=== PATIENT | male | born 1935 | race Caucasian/White ===

== ENCOUNTER 2019-10-24 06:04 | Inpatient (IN) ==
[2019-10-24] MEDS ORDERED: ONDANSETRON 4 MG OD TAB PO PRN (06:55)
[2019-10-24] MEDS ORDERED: SODIUM CHLORIDE 0.9% 500 ML IV SCH (07:00)
[2019-10-24 07:04] LABS: Basophils # (auto) 0.04 K/uL (0-0.2); Basophils % (auto) 0.2 %; Eosinophils # (auto) 1.42 K/uL (0-0.5); Eosinophils % (auto) 6.3 %; Hematocrit (blood only) 51.9 % (42-52); Hemoglobin 17.2 g/dL (14.0-18.0); Immature Granulocytes # (auto) 0.07 K/uL (0.00-0.02); Immature Granulocytes % (auto) 0.3 %; Lymphocytes # (auto) 0.82 K/uL (1.2-3.4); Lymphocytes % (auto) 3.7 %; Mean Corpuscular Hemoglobin 33.3 pg (25-34); Mean Corpuscular Hgb Conc 33.1 g/dL (32-36); Mean Corpuscular Volume 100.4 fL (80-100); Monocytes # (auto) 1.62 K/uL (0.11-0.59); Monocytes % (auto) 7.2 %; Neutrophils # (auto) 18.41 K/uL (1.4-6.5); Neutrophils % (auto) 82.3 %; Platelet Count 150 K/uL (130-400); RDW Coefficient of Variation 15.4 % (11.5-14.5); RDW Standard Deviation 56.4 fL (36.4-46.3); Red Blood Count 5.17 M/uL (4.7-6.1); White Blood Count 22.38 K/uL (4.8-10.8)
[2019-10-24 07:20] LABS: Albumin Globulin Ratio 1.2 (0.9-2); Albumin Level 4.7 gm/dl (3.4-5.0); BUN Creatinine Ratio 22.2 (10-20); Bilirubin,Total 1.1 mg/dl (0.2-1); Creatinine Clr Calc Pharmacy 33.1 ml/min; Est GFR (African American) 53.6; Est GFR (Non-African American) 46.2; Globulin 3.9 gm/dl (2.5-4.0); Total Protein 8.6 gm/dl (6.4-8.2)
[2019-10-24 08:10] LABS: Influenza A virus by PCR Neg for Influ A (Neg); Influenza B virus by PCR Neg for Influ B (Neg)
[2019-10-24] MEDS ORDERED: ONDANSETRON INJ 2 MG/ML 2 ML VIAL IV STA (08:27)
[2019-10-24] MEDS: SODIUM CHLORIDE 0.9% 500 ML IV SCH ×2 (08:29→13:44)
[2019-10-24 09:31] LABS: Hematocrit (blood only) 47.4 % (42-52); Hemoglobin 15.6 g/dL (14.0-18.0); Mean Corpuscular Hemoglobin 33.1 pg (25-34); Mean Corpuscular Hgb Conc 32.9 g/dL (32-36); Mean Corpuscular Volume 100.4 fL (80-100); Mean Platelet Volume 12.5 fL (7.4-10.4); Platelet Count 136 K/uL (130-400); RDW Coefficient of Variation 15.4 % (11.5-14.5); RDW Standard Deviation 56.3 fL (36.4-46.3); Red Blood Count 4.72 M/uL (4.7-6.1)
--- NOTE | 2019-10-24 09:54 | XRay Report ---
PA CHEST RADIOGRAPH AND UPRIGHT AND SUPINE AP RADIOGRAPHS OF THE ABDOMEN CLINICAL HISTORY: n/v/d COMPARISON STUDY: Chest radiograph November 02, 2015. FINDINGS: There are median sternotomy wires. Mild cardiomegaly is noted without evidence for pulmona ry edema. Minimal left basilar opacity favors atelectasis. There is no pneumothorax or definite pleur al effusion. No free air is present. A few mildly dilated loops of small bowel within the left abdome n are noted. There is moderate vascular calcification. IMPRESSION: 1. No free air. 2. Mild small bowel dilatation. This could reflect a partial small bowel obstruction or ileus. 3. Left basilar opacity which favors atelectasis. ACT 112: Negative or not required by law. Electronically signed by: Klaus Weathers M.D. 10/24/2019 9:52 AM
[2019-10-24] MEDS ORDERED: SODIUM CHLORIDE 0.9% 500 ML IV ONE (10:13)
[2019-10-24] MEDS ORDERED: IOVERSOL 100ml IV PRN (10:33)
[2019-10-24 10:47] LABS: Appearance Urine Clear (Clear); Bilirubin Urine Negative (Negative); Blood Urine Negative (Negative); Color Urine Yellow; Glucose Urine UA Negative (Negative); Ketones Urine Negative (Negative); Leukocyte Esterase Urine Negative (Negative); Nitrite Urine Negative (Negative); Protein Urine Negative (Negative); Specific Gravity Urine 1.015 (1.000-1.030); Urobilinogen Urine Negative (Negative); pH Urine 5.5 (4.5-7.5)
--- NOTE | 2019-10-24 10:53 | CT Scan Report ---
CT OF THE ABDOMEN AND PELVIS WITH CONTRAST CLINICAL HISTORY: vomiting, nausea, concern for SBO vs Ileus COMPARISON STUDY: Abdominal series performed earlier today. TECHNIQUE: Following IV administration of 94 mL of Optiray-320, axial images of the abdomen and pelvi s were obtained from the lung bases to the proximal femurs. Images were reviewed in the axial, sagitt al, and coronal planes. IV contrast was administered without complication. Automated exposure contro l was utilized for the study. A dose lowering technique was utilized adhering to the principles of A PEARL. CT DOSE: 745.41 mGycm FINDINGS: The heart is moderately enlarged. No pneumatosis, free air or portal venous gas is present. The liver, adrenal glands and pancreas are unremarkable. There are calcified cannula was within the spleen. There are gallstones within the gallbladder without evidence for acute cholecystitis. A few c alculi within lower pole the left kidney measure up to 3 mm. There are no ureteral calculi. There is no hydronephrosis. Extensive colonic diverticulosis is noted without evidence for acute diverticuliti s. The appendix is normal. The proximal to mid small bowel is fluid-filled and mildly dilated. There is a possible transition point within the right lower quadrant on image 255 of 461. Distal small sumit l is decompressed. Prostate is moderately enlarged. Bladder wall thickening is chronic. There are no suspicious osseous lesions. IMPRESSION: 1. Mildly dilated fluid-filled proximal to mid small bowel with probable transition point within the right lower quadrant. The appearance favors a partial small bowel obstruction. An ileus could appear similar but is considered less likely. 2. Extensive colonic diverticulosis without evidence for acute diverticulitis. 3. Left-sided nephrolithiasis. 4. Cholelithiasis. ACT 112: Negative or not required by law. Electronically signed by: Klaus Weathers M.D. 10/24/2019 10:51 AM
[2019-10-24 11:56] LABS: Cdiff Antigen Negative; Cdiff Toxin A+B Negative Cdiff Toxin (Negative)
--- NOTE | 2019-10-24 12:11 | History & Physical Report ---
Date of Service October 24, 2019 Assessment & Plan (1) Partial small bowel obstruction: (2) Diarrhea: This is an 84-year-old male who has significant PMH of CAD with history of CABG x3, T2DM, HTN, HLD, CKD stage III, frequent PVCs, vitamin D deficiency who presents to ED secondary to emesis x1, multiple episodes of loose stool since 3 AM. Imaging reveals partial SBO with probable transition point within the right lower quadrant. Patient with leukocytosis 18,000, lactic acid 1.9, stool for C. difficile negative. Admit to medical floor bowel rest IVF LR 80cc/hr antiemetics and supportive care pt w/o active emesis or nausea; therefore I do not feel NG warranted general surg consulted repeat kub in a.m. follow labs (3) CAD (coronary artery disease): hx of CABG x 3 2004 denies chest pain and sob on ASA, statin, lisinopril and metoprolol as outpt follows [facility] cardiology (4) Diabetes: A1c 7.3 on 07/20/2018 Hold metformin NovoLog per protocol (5) Hypertension: blood pressure controlled continue metoprolol and lisinopril hold triamterene/hctz (6) CKD (chronic kidney disease) stage 3, GFR 30-59 ml/min: baseline cr 1.2 bun/cr 31 and 1.39 today likely in setting of volume contraction due to n/v mild acute renal insufficiency IV LR 80cc/hr repeat in a.m. (7) DVT prophylaxis: SQ Heparin Disposition: admit to med/surg Follow up: PCP Dr. Johnston upon discharge Pt was seen and examined in collaboration with Dr. De León, please see addendum History of Present Illness Chief Complaint: Emesis and diarrhea since 3a.m. Primary Care Provider: Donnie Johnston MD This is an 84-year-old male who has significant PMH of CAD with history of CABG x3, T2DM, HTN, HLD, CKD stage III, frequent PVCs, vitamin D deficiency who presents to ED secondary to emesis x1, multiple episodes of loose stool since 3 AM. He woke up at approximately 3 AM and had episode of emesis. He also had 3- 4 episodes of very loose bowel and diffuse abdominal cramping. After he was seated on the toilet and had a bowel movement he went to get up. After getting up he felt very diaphoretic, lightheaded and dizzy and, "blacked out." He recalls events prior to and after passing out. He denies hitting his head and states he fell on the carpet on his hands. He denies any injury from the fall. He does admit to presyncopal symptoms. He further relates this to having approximately 2 to 3 days of abdominal distention, bloating and frequent flatus. He denies any recent illness but states he was in the ED yesterday with his son who developed an acute onset of nausea, emesis and diarrhea. He was told he had a GI gastroenteritis was treated conservatively and discharged home. He thought possibly he had similar symptoms. He currently lives at home with his son and his . His is currently hospitalized at [facility] and is being discharged today. He denies any fever, chills, sweats, current lightheadedness or dizziness, headache, change in vision, chest pain, shortness breath, palpitations, cough, hemoptysis, melena, hematochezia, dysuria or change in urinary habits. He continues to have nausea but denies any further emesis, abdominal pain. He did move his bowels while in ED and were more formed than this morning. In ED he remained hemodynamically stable and afebrile. Lab work revealed leukocytosis 18 K with predominant neutrophilia, BUN 31, creatinine 1.39, lactate 1.9, procalcitonin WNL Urinalysis WNL, stool for C. difficile positive C. difficile change but negative C. difficile toxin. Influenza negative. CT abdomen pelvis revealed mildly dilated fluid-filled proximal to mid small bowel with probable transition point in the right lower quadrant. Fevers multiple bowel obstruction. Extensive colonic diverticulosis without acute diverticulitis. He received IVF and antiemetics. Allergies Allergy/AdvReac Type Severity Reaction Status Date / Time nitrofurantoin Allergy Unknown Unknown Verified 10/24/19 06:35 Penicillins Allergy Unknown Unknown Verified 10/24/19 06:35 Sulfa (Sulfonamide Allergy Unknown Unknown Verified 10/24/19 06:35 Antibiotics) sulfamethoxazole Allergy Unknown Unknown Verified 10/24/19 06:35 trimethoprim Allergy Unknown Unknown Verified 10/24/19 06:35 Home Medications Home Medications Medication Instructions Recorded Confirmed Type aspirin 81 mg PO DAILY 10/24/19 10/24/19 History cholecalciferol (vitamin D3) 1,000 unit PO DAILY 10/24/19 10/24/19 History [Vitamin D3] glucos sul [id number] 1 cap PO DAILY 10/24/19 10/24/19 History [Glucosamine Chondroitin] lisinopril 10 mg PO DAILY 10/24/19 10/24/19 History metformin 500 mg PO BIDM 10/24/19 10/24/19 History metoprolol succinate 100 mg PO DAILY 10/24/19 10/24/19 History multivitamin [Multiple Vitamins] 1 tab PO DAILY 10/24/19 10/24/19 History rosuvastatin 10 mg PO DAILY 10/24/19 10/24/19 History triamterene-hydrochlorothiazid 1 cap PO DAILY 10/24/19 10/24/19 History Past Med/Surg History Medical History (Updated 10/24/19 @ 12:40 by Peggy Farah PA-C) CAD (coronary artery disease) CKD (chronic kidney disease) stage 3, GFR 30-59 ml/min Diabetes (Chronic) Frequent PVCs HLD (hyperlipidemia) Hypertension (Chronic) Surgical History (Updated 10/24/19 @ 12:23 by Peggy Farah PA-C) History of arthroscopic knee surgery History of cataract extraction History of colonoscopy with polypectomy Last 03/20/2015 adenomatous polyp History of hernia repair Bilateral Hx of CABG (Resolved) x 3 BARRAZA to LAD, SVG to diagonal and obtuse 2004 Family History Mother , 72 No problems noted. 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: No Beliefs That Will Affect Care: None Current Living Situation: Spouse and Family Current Living Situation Comment: lives with and son Other Information That Helps Us Care for You: No Feels Safe at Home: Yes Safety Concerns: Feels Safe At This Time Smoking Status: Former smoker Tobacco Type: smokeless tobacco ; Do You Dip or Chew Tobacco: No ; Second Hand Exposure: No ; Tobacco Cessation Education Requested by Patient: No Hx Alcohol Use: Yes Alcohol type: beer Alcohol Intake Frequency: Holidays/Special Occasions Hx Substance Use: No Review of Systems Review of Systems: All systems reviewed & are unremarkable except as noted in HPI & below Physical Exam Physical Exam: Constitutional: WD/WN, elderly, male, vitals as above, NAD, sitting up in bed, pleasant, conversing easily Head: Normocephalic, Atraumatic Eyes: PERRL, conjunctivae normal, anicteric sclerae ENMT: external ear and nose normal, oropharynx normal Neck: trachea midline, no thyromegaly normal visual inspection Respiratory: normal respiratory effort, lungs clear to auscultation, no wheeze, rales, rhonchi. Normal insp/exp effort, no accessory muscle use Cardiovascular: RRR, soft 1/6 MAGGY noted RUSB, no edema Vessels: no JVD or carotid bruit Chest: normal inspection of chest , sternal scar noted, abdomen: Distended abdomen, bowel sounds are all 4 quadrants high-pitched, tympanic to percussion, soft, nontender, no hepatosplenomegaly Musculoskeletal: no cyanosis or clubbing, extremities motor strength 5/5 Skin: no rashes, warm and dry normal turgor Neurologic: PERRL, EOMI, accommodation nl, no face palsy, no dysarthria CN's II-XI intact bilaterally and moves all extremities Psychiatric: A+Ox3, euthymic affect Lymphatic: no cervical or axillary lymphadenopathy : deferred Results & Data Vital Signs (Past 12 Hours) Vital Signs Temp Pulse Pulse Resp BP BP Pulse Ox 10/24/19 10:47 87 24 140/62 96 10/24/19 10:12 80 22 123/73 95 10/24/19 09:33 77 22 101/59 L 95 10/24/19 08:32 73 24 109/68 93 10/24/19 07:06 71 22 115/65 94 10/24/19 06:52 36.3 C L 10/24/19 06:06 82 18 133/78 96 Laboratory Results Short CBC 10/24/19 10/24/19 10/24/19 Range/Units 06:38 06:38 09:20 WBC 22.38 H 18.00 H (4.8-10.8) K/uL Hgb 17.2 15.6 (14.0-18.0) g/dL Hct 51.9 47.4 (42-52) % Plt Count 150 136 (130-400) K/uL Creatinine 1.39 (0.6-1.4) mg/dl BMP 10/24/19 10/24/19 06:38 07:33 Sodium 136 Potassium 4.0 Chloride 105 Carbon Dioxide 22 BUN 31 H Creatinine 1.39 Glucose 144 H Calcium 10.0 Liver Function 10/24/19 10/24/19 Range/Units 06:38 07:33 Total Bilirubin 1.1 H (0.2-1) mg/dl AST 23 (15-37) U/L ALT 40 (12-78) U/L Alkaline Phosphatase 60 (45-117) U/L Albumin 4.7 (3.4-5.0) gm/dl Urine 10/24/19 Range/Units 10:05 Urine Color Yellow Urine Appearance Clear (Clear) Urine pH 5.5 (4.5-7.5) Ur Specific [place] 1.015 (1.000-1.030) Urine Protein Negative (Negative) Urine Glucose (UA) Negative (Negative) Diagnostic Findings Chest/Abd XRAY: IMPRESSION: 1. No free air. 2. Mild small bowel dilatation. This could reflect a partial small bowel obstruction or ileus. 3. Left basilar opacity which favors atelectasis. Abd/Pelvis CT: IMPRESSION: 1. Mildly dilated fluid-filled proximal to mid small bowel with probable transition point within the right lower quadrant. The appearance favors a partial small bowel obstruction. An ileus could appear similar but is considered less likely. 2. Extensive colonic diverticulosis without evidence for acute diverticulitis. 3. Left-sided nephrolithiasis. 4. Cholelithiasis. Medications Administered Sodium Chloride (Nss) 500 mls @ 125 mls/hr IV .Q4H EMMA Stop: 11/23/19 07:14 Last Infusion: 10/24/19 10:49 Dose: 0 mls/hr Documented by: [id number] Admin: 10/24/19 08:29 Dose: 125 mls/hr Documented by: [id number] Ioversol (Optiray 320 100ml) 94 ml IV ONCE PRN PRN Reason: Interaction Checking Stop: 10/28/19 10:32 Last Admin: 10/24/19 10:34 Dose: 94 ml Documented by: [id number] Ondansetron HCl (Zofran Odt) 4 mg PO Q4H PRN PRN Reason: Nausea Stop: 11/23/19 06:54 Last Admin: 10/24/19 07:04 Dose: 4 mg Documented by: [id number] Discontinued Medications Sodium Chloride (Nss) 500 mls @ 500 mls/hr IV .Q1H EMMA Stop: 10/24/19 07:59 Last Infusion: 10/24/19 08:26 Dose: 0 mls/hr Documented by: [id number] Admin: 10/24/19 07:04 Dose: 500 mls/hr Documented by: [id number] Sodium Chloride (Nss) 500 mls @ 999 mls/hr IV .Q31M ONE Stop: 10/24/19 10:43 Last Infusion: 10/24/19 11:20 Dose: 0 mls/hr Documented by: [id number] Admin: 10/24/19 10:48 Dose: 999 mls/hr Documented by: [id number] Ondansetron HCl (Zofran) 4 mg IV NOW STA Stop: 10/24/19 08:28 Last Admin: 10/24/19 08:31 Dose: 4 mg Documented by: [id number] Code Status & VTE Plan Code Status Full Code VTE Prophylaxis Plan VTE Prophylaxis will be ordered: Yes Supervising Physician Co-Signing Physician Notes I performed a history and physical examination of the patient on 10/24/2019. I have discussed the patient's management with the advanced practitioner. Please refer to the PA-C note for the documented findings and plan of care. This is an 84-year-old male, who lives at home with his and son, with past medical history of coronary artery disease status post CABG in 2004, hypertension, chronic kidney disease and dyslipidemia who came to the ER because of nausea/vomiting and diarrhea. He stated that he had been having some bloating for the past 2 days and this morning he woke up at around 3 AM because he had to have a bowel movement. He did not have any abdominal pain. In the bathroom while getting up he also developed some nausea, felt lightheaded and he thinks that he passed out and fell on the floor. His son heard the fall and helped him get up and since then he has not had any syncopal episodes. He had vomiting after that and had some more episodes of loose stools. He again denied any abdominal pain. He has not had any fever. On exam he was afebrile in the ER. His abdomen was distended but very soft and tympanic. Bowel sounds were hyperactive. CT scan of the abdomen and pelvis with IV contrast showed partial small bowel obstruction with a transition point. The only bowel surgery he has had in the past is bilateral inguinal hernia repair. He was given Zofran and at the moment denied any nausea. We will keep him n.p.o. and provide IV fluids. If he develops any nausea or vomiting we will place an NG tube. Consult general surgery. Rest as above. (1) Diarrhea Diarrhea type: unspecified type Qualified Code(s): R19.7 - Diarrhea, unspecified
[2019-10-24] MEDS ORDERED: ALUMINUM/MAGNESIUM SUSP 30 ML UDC PO PRN (13:39)
[2019-10-24] MEDS ORDERED: GLUCAGON FOR INJ 1 MG VIAL SQ PRN (13:39)
[2019-10-24] MEDS ORDERED: ACETAMINOPHEN 325 MG TAB PO PRN (13:39)
[2019-10-24] MEDS ORDERED: CARBOHYDRATES FOR HYPOGLYCEMIA PO PRN (13:39)
[2019-10-24] MEDS ORDERED: GLUCOSE 10 TABS/TUBE PO PRN (13:39)
[2019-10-24] MEDS ORDERED: GLUCOSE 40% GEL 15 GM TUBE PO PRN (13:39)
[2019-10-24] MEDS ORDERED: ONDANSETRON INJ 2 MG/ML 2 ML VIAL IV PRN (13:39)
[2019-10-24] MEDS ORDERED: DEXTROSE 50% 50 ML SYRINGE IV PRN (13:39)
[2019-10-24] MEDS: LACTATED RINGER'S 1,000 ML IV SCH (13:44)
[2019-10-24] MEDS ORDERED: Nursing to Pharmacy Communication ONE (13:56)
--- NOTE | 2019-10-24 14:50 | Surgery Consultation ---
Date of Consultation October 24, 2019 Assessment & Plan (1) Partial small bowel obstruction: This is a 84y M with a PMH of CAD, CABG, HTN, and CKD who presented to the [facility] ED on 10/24/19 with a syncopal episode and multiple bouts of diarrhea since 3am. Patient had a CT scan that shows concern for partial SBO with ?transition point in the right lower quadrant. He currently denies any abdominal pain, nausea, or vomiting since admission. He has not passed any flatus or BM since arrival to the ED. At this time would recommend a course of conservative management, NPO with IVF for bowel rest. Agree with no NGT for now unless patient develops worsening symptoms- increased abd pain, nausea, vomiting. Patient's WBC 18 and stool studies are pending. KUB ordered for tomorrow by medicine. We will continue to follow along. History of Present Illness Attending Physician: Rhiannon De León MD History of Present Illness This is a 84y M with a PMH of CAD, CABG, HTN, and CKD who presented to the [facility] ED on 10/24/19 with a syncopal episode and diarrhea. Patient reports he woke up around 3AM and had diarrhea and believes he passed out on the commode. He ended up coming to and when he walked to the bedroom said he passed out again. His syncopal episodes along with multiple bouts of diarrhea in the AM prompted the patient to come to the ED for further evaluation. In the ED a CT scan was performed that revealed mildly dilated fluid filled proximal to mid small bowel with probable transition point in the RLQ, favoring partial small bowel obstruction vs ileus. He endorsed a small bout of emesis this AM, otherwise currently denies n/v since admission. He felt bloated this AM, which has also improved. Since coming to the ED he has not passed flatus or had a BM. He denies fevers, chills, chest pain, shortness of breath, headaches or dizziness. His past surgical history includes a CABG and bilateral inguinal hernia repairs. Of note his was admitted this past wk to the hospital, now discharged, and his son was evaluated in the ED yesterday with presumed gastroenteritis. Dr Lo- pt examined in room- no significant pain, had loose/liquid stool, has bowel sounds- he says less distended than last pm. C diff- pos gene, toxin neg as above- nonoperative mgt for now Allergies Allergy/AdvReac Type Severity Reaction Status Date / Time nitrofurantoin Allergy Unknown Unknown Verified 10/24/19 06:35 Penicillins Allergy Unknown Unknown Verified 10/24/19 06:35 Sulfa (Sulfonamide Allergy Unknown Unknown Verified 10/24/19 06:35 Antibiotics) sulfamethoxazole Allergy Unknown Unknown Verified 10/24/19 06:35 trimethoprim Allergy Unknown Unknown Verified 10/24/19 06:35 Home Medications Home Medications Medication Instructions Recorded Confirmed Type aspirin 81 mg PO DAILY 10/24/19 10/24/19 History cholecalciferol (vitamin D3) 1,000 unit PO DAILY 10/24/19 10/24/19 History [Vitamin D3] glucos sul [id number]-C-Mn 1 cap PO DAILY 10/24/19 10/24/19 History [Glucosamine Chondroitin] lisinopril 10 mg PO DAILY 10/24/19 10/24/19 History metformin 500 mg PO BIDM 10/24/19 10/24/19 History metoprolol succinate 100 mg PO DAILY 10/24/19 10/24/19 History multivitamin [Multiple Vitamins] 1 tab PO DAILY 10/24/19 10/24/19 History rosuvastatin 10 mg PO DAILY 10/24/19 10/24/19 History triamterene-hydrochlorothiazid 1 cap PO DAILY 10/24/19 10/24/19 History Patient History Medical History CAD (coronary artery disease) CKD (chronic kidney disease) stage 3, GFR 30-59 ml/min Diabetes (Chronic) Frequent PVCs HLD (hyperlipidemia) Hypertension (Chronic) Surgical History History of arthroscopic knee surgery History of cataract extraction History of colonoscopy with polypectomy Last 03/20/2015 adenomatous polyp History of hernia repair Bilateral Hx of CABG (Resolved) x 3 BARRAZA to LAD, SVG to diagonal and obtuse 2004 Family History Mother , 72 No problems noted. 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 Beliefs That Will Affect Care: None Current Living Situation: Spouse and Family Current Living Situation Comment: lives with and son Other Information That Helps Us Care for You: No Feels Safe at Home: Yes Safety Concerns: Feels Safe At This Time Smoking Status: Former smoker Tobacco Type: smokeless tobacco ; Do You Dip or Chew Tobacco: No ; Second Hand Exposure: No ; Tobacco Cessation Education Requested by Patient: No Hx Alcohol Use: Yes Alcohol type: beer Alcohol Intake Frequency: Holidays/Special Occasions Hx Substance Use: No Review of Systems Constitutional: no fever and no chills Respiratory: no shortness of breath Cardiovascular: no chest pain Gastrointestinal: + bloating (improving), + vomiting (1x this AM) and + diarrhea/loose stools; no abdominal pain and no blood in stools Physical Exam Physical Exam: awake/alert Constitutional: well developed, well nourished, cooperative and comfortable; no acute distress Respiratory: normal respiratory effort Gastrointestinal (Abdomen): Inspection/Auscultation: + abdomen distended (mild) and + abdominal surgical scar (from prior CABG and chest drain) Percussion/Palpation: abdomen soft; abdomen nontender Results & Data Vital Signs (Past 12 Hours) Vital Signs Temp Pulse Pulse Resp BP BP Pulse Ox 10/24/19 13:30 37.0 C 93 H 18 132/77 92 10/24/19 12:57 94 H 22 124/65 93 10/24/19 12:13 97 H 22 124/65 93 10/24/19 10:47 87 24 140/62 96 10/24/19 10:12 80 22 123/73 95 10/24/19 09:33 77 22 101/59 L 95 10/24/19 08:32 73 24 109/68 93 10/24/19 07:06 71 22 115/65 94 10/24/19 06:52 36.3 C L 10/24/19 06:06 82 18 133/[address] OF THE ABDOMEN AND PELVIS WITH CONTRAST CLINICAL HISTORY: vomiting, nausea, concern for SBO vs Ileus COMPARISON STUDY: Abdominal series performed earlier today. TECHNIQUE: Following IV administration of 94 mL of Optiray-320, axial images of the abdomen and pelvis were obtained from the lung bases to the proximal femurs. Images were reviewed in the axial, sagittal, and coronal planes. IV contrast was administered without complication. Automated exposure control was utilized for the study. A dose lowering technique was utilized adhering to the principles of ALARA. CT DOSE: 745.41 mGycm FINDINGS: The heart is moderately enlarged. No pneumatosis, free air or portal venous gas is present. The liver, adrenal glands and pancreas are unremarkable. There are calcified cannula was within the spleen. There are gallstones within the gallbladder without evidence for acute cholecystitis. A few calculi within lower pole the left kidney measure up to 3 mm. There are no ureteral calculi. There is no hydronephrosis. Extensive colonic diverticulosis is noted without evidence for acute diverticulitis. The appendix is normal. The proximal to mid small bowel is fluid-filled and mildly dilated. There is a possible transition point within the right lower quadrant on image 255 of 461. Distal small bowel is decompressed. Prostate is moderately enlarged. Bladder wall thickening is chronic. There are no suspicious osseous lesions. IMPRESSION: 1. Mildly dilated fluid-filled proximal to mid small bowel with probable transition point within the right lower quadrant. The appearance favors a partial small bowel obstruction. An ileus could appear similar but is considered less likely. 2. Extensive colonic diverticulosis without evidence for acute diverticulitis. 3. Left-sided nephrolithiasis. 4. Cholelithiasis. ACT 112: Negative or not required by law. Electronically signed by: Klaus Weathers M.D. 10/24/2019 10:51 AM PG Care Time/CCT Total # of Minutes Spent Total Time Spent with Patient: Total time spent is greater than 50% in coordination of care (as documented) at patient's floor/unit and/or counseling patient: Coding Level of Care Code 35375 Initial Inpt Care Lvl 3 Diagnoses Partial small bowel obstruction K56.600
[2019-10-24 15:37] LABS: Magnesium 1.9 mg/dl (1.8-2.4); Phosphorus 2.9 mg/dl (2.5-4.9)
[2019-10-24] MEDS: HEPARIN SOD 5,000 UNIT/0.5 ML VIAL SQ SCH ×2 (15:37→22:24)
[2019-10-24] MEDS ORDERED: INSULIN ASPART 100 UNITS/ML 3 ML PEN SC SCH (16:30)
[2019-10-24] MEDS: INSULIN ASPART 100 UNITS/ML 3 ML PEN SC SCH ×2 (19:02→23:57)
[2019-10-25] MEDS: LACTATED RINGER'S 1,000 ML IV SCH ×2 (01:39→13:51)
[2019-10-25] MEDS: INSULIN ASPART 100 UNITS/ML 3 ML PEN SC SCH ×4 (05:53→21:30)
[2019-10-25] MEDS: HEPARIN SOD 5,000 UNIT/0.5 ML VIAL SQ SCH ×3 (05:53→21:09)
[2019-10-25 06:21] LABS: Basophils # (auto) 0.03 K/uL (0-0.2); Basophils % (auto) 0.5 %; Eosinophils # (auto) 0.59 K/uL (0-0.5); Eosinophils % (auto) 9.5 %; Hematocrit (blood only) 41.5 % (42-52); Immature Granulocytes # (auto) 0.01 K/uL (0.00-0.02); Immature Granulocytes % (auto) 0.2 %; Lymphocytes # (auto) 0.72 K/uL (1.2-3.4); Lymphocytes % (auto) 11.6 %; Mean Corpuscular Hemoglobin 33.3 pg (25-34); Mean Corpuscular Hgb Conc 33.7 g/dL (32-36); Mean Corpuscular Volume 98.6 fL (80-100); Mean Platelet Volume 12.2 fL (7.4-10.4); Monocytes # (auto) 1.06 K/uL (0.11-0.59); Neutrophils # (auto) 3.81 K/uL (1.4-6.5); Neutrophils % (auto) 61.2 %; Platelet Count 120 K/uL (130-400); Platelet Estimate Decreased (Normal); RDW Coefficient of Variation 15.7 % (11.5-14.5); RDW Standard Deviation 56.4 fL (36.4-46.3); Red Blood Count 4.21 M/uL (4.7-6.1); White Blood Count 6.22 K/uL (4.8-10.8)
[2019-10-25 06:35] LABS: Albumin Level 3.1 gm/dl (3.4-5.0); BUN Creatinine Ratio 20.2 (10-20); Calcium 8.4 mg/dl (8.5-10.1); Est GFR (African American) 67.4; Est GFR (Non-African American) 58.1; Potassium 3.6 mmol/L (3.5-5.1)
[2019-10-25 06:36] LABS: Bilirubin,Total 0.8 mg/dl (0.2-1); Total Protein 6.1 gm/dl (6.4-8.2)
[2019-10-25 06:52] LABS: Phosphorus 3.1 mg/dl (2.5-4.9)
--- NOTE | 2019-10-25 07:12 | Surgery Progress Note ---
Date of Service October 25, 2019 Assessment & Plan (1) Partial small bowel obstruction: improving begin clear liquids ambulate Subjective + flatus, feels much better Review of Systems Review of Systems: All systems reviewed & are unremarkable except as noted in HPI & below Physical Exam Physical Exam: soft, normal bowel sounds Respiratory: normal respiratory effort; no respiratory distress Cardiovascular: Rate/Rhythm: regular rhythm Skin: no rashes, warm and dry Neurologic: awake Psychiatric: Orientation: alert Results & Data Vital Signs (Past 12 Hours) Vital Signs Temp Pulse Resp BP BP Pulse Ox 10/25/19 06:51 37.2 C 60 19 122/63 95 10/24/19 23:27 36.9 C 74 18 129/87 90 PG Care Time/CCT Total # of Minutes Spent Total Time Spent with Patient: Total time spent is greater than 50% in coordination of care (as documented) at patient's floor/unit and/or counseling patient: Coding Level of Care Code 56380 Inpt Consult Level 3 Diagnoses Partial small bowel obstruction K56.600
--- NOTE | 2019-10-25 07:23 | Hospitalist Progress Note ---
Date of Service October 25, 2019 Assessment & Plan (1) Partial small bowel obstruction: (2) Diarrhea: This is an 84-year-old male who has significant PMH of CAD with history of CABG x3, T2DM, HTN, HLD, CKD stage III, frequent PVCs, vitamin D deficiency who presents to ED secondary to emesis x1, multiple episodes of loose stool since 3 AM. Imaging reveals partial SBO with probable transition point within the right lower quadrant. Patient with leukocytosis 18,000, lactic acid 1.9, stool for C. difficile negative. Admitted to medical floor bowel rest ,IVF LR 80cc/hr initially antiemetics and supportive care pt w/o active emesis or nausea; therefore I do not feel NG warranted General surgery consulted - advanced diet to clear liquid today and recommend ambulation Repeat KUB this a.m. - does not show obstruction Pt is passing flatus, had one small watery BM this AM WBC down from 18K to 6.2K Keep electrolytes wnl, goal K >4, and goal Mg >2 (3) CAD (coronary artery disease): hx of CABG x 3 2004 denies chest pain and sob on ASA, statin, lisinopril and metoprolol as outpt follows reading hospital cardiology (4) Diabetes: A1c 7.3 on 07/20/2018 Hold metformin NovoLog per protocol (5) Hypertension: blood pressure controlled continue metoprolol and lisinopril hold triamterene/hctz (6) CKD (chronic kidney disease) stage 3, GFR 30-59 ml/min: baseline cr 1.2 bun/cr 31 and 1.39 on admission likely in setting of volume contraction due to n/v mild acute renal insufficiency IV LR 80cc/hr Resolved, current Cr 1.15 (7) DVT prophylaxis: SQ Heparin Disposition: med/surg Follow up: PCP Dr. Johnston upon discharge Admission and Anticipated Discharge Date Admission Date: October 24, 2019 Subjective Patient is lying in bed, in no acute distress. Denies any fevers, chills, chest pain, shortness of breath. He was ambulating today. Currently on clear liquid diet, advanced by surgery. Overall says that he feels much better. Had small BM this morning, watery. KUB this AM - does not show obstruction Review of Systems Review of Systems: All systems reviewed & are unremarkable except as noted in HPI & below Constitutional: no fever and no chills Respiratory: no cough and no dyspnea Cardiovascular: no chest pain, no palpitations and no edema Gastrointestinal: no abdominal pain, no nausea and no vomiting Physical Exam Physical Exam: Constitutional: WD/WN, elderly, male, NAD, lying in bed, pleasant, conversing easily Head: Normocephalic, Atraumatic Eyes: PERRL, EOMI, conjunctivae normal, anicteric sclerae ENMT: external ear and nose normal, oropharynx normal Neck: normal visual inspection Respiratory: normal respiratory effort, lungs clear to auscultation, no wheeze, rales, rhonchi. Normal insp/exp effort, no accessory muscle use Cardiovascular: RRR, soft 1/6 MAGGY noted RUSB, no edema Vessels: no JVD or carotid bruit Chest: normal inspection of chest , sternal scar noted abdomen: abdomen soft,somewhat distended, bowel sounds present, nontender Musculoskeletal: no cyanosis or clubbing, extremities motor strength 5/5 Skin: no rashes, warm and dry normal turgor Neurologic: PERRL, EOMI, accommodation nl, no face palsy, no dysarthria CN's II-XI intact bilaterally and moves all extremities Psychiatric: A+Ox3, euthymic affect Results & Data ([facility]) Vital Signs (Past 12 Hours) Vital Signs Temp Pulse Resp BP BP Pulse Ox 10/25/19 06:51 37.2 C 60 19 122/63 95 10/24/19 23:27 36.9 C 74 18 129/87 90 Laboratory Results 10/25/19 10/25/19 10/25/19 Range/Units 06:09 05:50 05:29 WBC (4.8-10.8) K/uL RBC (4.7-6.1) M/uL Hgb (14.0-18.0) g/dL Hct (42-52) % MCV (80-100) fL MCH (25-34) pg MCHC (32-36) g/dL RDW Std Deviation (36.4-46.3) fL RDW Coeff of Mague (11.5-14.5) % Plt Count (130-400) K/uL MPV (7.4-10.4) fL Immature Gran % (Auto) % Neut % (Auto) % Lymph % (Auto) % [place] % (Auto) % Eos % (Auto) % Baso % (Auto) % Immature Gran # (Auto) (0.00-0.02) K/uL Neut # (Auto) (1.4-6.5) K/uL Lymph # (Auto) (1.2-3.4) K/uL [place] # (Auto) (0.11-0.59) K/uL Eos # (Auto) (0-0.5) K/uL Baso # (Auto) (0-0.2) K/uL Platelet Estimate (Normal) Sodium 141 (136-145) mmol/L Potassium 3.6 (3.5-5.1) mmol/L Chloride 110 H (98-107) mmol/L Carbon Dioxide 26 (21-32) mmol/L Anion Gap 5.0 (3-11) BUN 23 H (7-18) mg/dl Creatinine 1.15 (0.6-1.4) mg/dl Est Cr Clr Drug Dosing 40.0 ml/min Est GFR ( Amer) 67.4 Est GFR (Non-Af Amer) 58.1 BUN/Creatinine Ratio 20.2 H (10-20) Glucose 116 H (70-99) mg/dl POC Glucose 123 H (70-99) mg/dl Lactate (0.4-2.0) mmol/L Calcium 8.4 L D (8.5-10.1) mg/dl Phosphorus 3.1 (2.5-4.9) mg/dl Magnesium 2.0 (1.8-2.4) mg/dl Total Bilirubin 0.8 (0.2-1) mg/dl AST 18 (15-37) U/L ALT 33 (12-78) U/L Alkaline Phosphatase 35 L (45-117) U/L Total Protein 6.1 L D (6.4-8.2) gm/dl Albumin 3.1 L (3.4-5.0) gm/dl Globulin 3.0 (2.5-4.0) gm/dl Albumin/Globulin Ratio 1.0 (0.9-2) Procalcitonin (0-0.5) ng/ml Urine Color Urine Appearance (Clear) Urine pH (4.5-7.5) Ur Specific [place] (1.000-1.030) Urine Protein (Negative) Urine Glucose (UA) (Negative) Urine Ketones (Negative) Urine Blood (Negative) Urine Nitrite (Negative) Urine Bilirubin (Negative) Urine Urobilinogen (Negative) Ur Leukocyte Esterase (Negative) Stl C. diff Tox B Gene (Neg) Stl C.difficile Tox A&B (Negative) Influenza Type A (PCR) (Neg) Influenza Type B (PCR) (Neg) 10/25/19 10/24/19 10/24/19 Range/Units 05:29 23:51 18:02 WBC 6.22 D (4.8-10.8) K/uL RBC 4.21 L (4.7-6.1) M/uL Hgb 14.0 (14.0-18.0) g/dL Hct 41.5 L (42-52) % MCV 98.6 (80-100) fL MCH 33.3 (25-34) pg MCHC 33.7 (32-36) g/dL RDW Std Deviation 56.4 H (36.4-46.3) fL RDW Coeff of Mague 15.7 H (11.5-14.5) % Plt Count 120 L (130-400) K/uL MPV 12.2 H (7.4-10.4) fL Immature Gran % (Auto) 0.2 % Neut % (Auto) 61.2 % Lymph % (Auto) 11.6 % [place] % (Auto) 17.0 % Eos % (Auto) 9.5 % Baso % (Auto) 0.5 % Immature Gran # (Auto) 0.01 (0.00-0.02) K/uL Neut # (Auto) 3.81 (1.4-6.5) K/uL Lymph # (Auto) 0.72 L (1.2-3.4) K/uL [place] # (Auto) 1.06 H (0.11-0.59) K/uL Eos # (Auto) 0.59 H (0-0.5) K/uL Baso # (Auto) 0.03 (0-0.2) K/uL Platelet Estimate Decreased L (Normal) Sodium (136-145) mmol/L Potassium (3.5-5.1) mmol/L Chloride (98-107) mmol/L Carbon Dioxide (21-32) mmol/L Anion Gap (3-11) BUN (7-18) mg/dl Creatinine (0.6-1.4) mg/dl Est Cr Clr Drug Dosing ml/min Est GFR ( Amer) Est GFR (Non-Af Amer) BUN/Creatinine Ratio (10-20) Glucose (70-99) mg/dl POC Glucose 114 H 119 H (70-99) mg/dl Lactate (0.4-2.0) mmol/L Calcium (8.5-10.1) mg/dl Phosphorus (2.5-4.9) mg/dl Magnesium (1.8-2.4) mg/dl Total Bilirubin (0.2-1) mg/dl AST (15-37) U/L ALT (12-78) U/L Alkaline Phosphatase (45-117) U/L Total Protein (6.4-8.2) gm/dl Albumin (3.4-5.0) gm/dl Globulin (2.5-4.0) gm/dl Albumin/Globulin Ratio (0.9-2) Procalcitonin (0-0.5) ng/ml Urine Color Urine Appearance (Clear) Urine pH (4.5-7.5) Ur Specific [place] (1.000-1.030) Urine Protein (Negative) Urine Glucose (UA) (Negative) Urine Ketones (Negative) Urine Blood (Negative) Urine Nitrite (Negative) Urine Bilirubin (Negative) Urine Urobilinogen (Negative) Ur Leukocyte Esterase (Negative) Stl C. diff Tox B Gene (Neg) Stl C.difficile Tox A&B (Negative) Influenza Type A (PCR) (Neg) Influenza Type B (PCR) (Neg) 10/24/19 10/24/19 10/24/19 Range/Units 15:03 10:05 10:05 WBC (4.8-10.8) K/uL RBC (4.7-6.1) M/uL Hgb (14.0-18.0) g/dL Hct (42-52) % MCV (80-100) fL MCH (25-34) pg MCHC (32-36) g/dL RDW Std Deviation (36.4-46.3) fL RDW Coeff of Mague (11.5-14.5) % Plt Count (130-400) K/uL MPV (7.4-10.4) fL Immature Gran % (Auto) % Neut % (Auto) % Lymph % (Auto) % [place] % (Auto) % Eos % (Auto) % Baso % (Auto) % Immature Gran # (Auto) (0.00-0.02) K/uL Neut # (Auto) (1.4-6.5) K/uL Lymph # (Auto) (1.2-3.4) K/uL [place] # (Auto) (0.11-0.59) K/uL Eos # (Auto) (0-0.5) K/uL Baso # (Auto) (0-0.2) K/uL Platelet Estimate (Normal) Sodium (136-145) mmol/L Potassium (3.5-5.1) mmol/L Chloride (98-107) mmol/L Carbon Dioxide (21-32) mmol/L Anion Gap (3-11) BUN (7-18) mg/dl Creatinine (0.6-1.4) mg/dl Est Cr Clr Drug Dosing ml/min Est GFR ( Amer) Est GFR (Non-Af Amer) BUN/Creatinine Ratio (10-20) Glucose (70-99) mg/dl POC Glucose (70-99) mg/dl Lactate (0.4-2.0) mmol/L Calcium (8.5-10.1) mg/dl Phosphorus 2.9 (2.5-4.9) mg/dl Magnesium 1.9 (1.8-2.4) mg/dl Total Bilirubin (0.2-1) mg/dl AST (15-37) U/L ALT (12-78) U/L Alkaline Phosphatase (45-117) U/L Total Protein (6.4-8.2) gm/dl Albumin (3.4-5.0) gm/dl Globulin (2.5-4.0) gm/dl Albumin/Globulin Ratio (0.9-2) Procalcitonin (0-0.5) ng/ml Urine Color Yellow Urine Appearance Clear (Clear) Urine pH 5.5 (4.5-7.5) Ur Specific [place] 1.015 (1.000-1.030) Urine Protein Negative (Negative) Urine Glucose (UA) Negative (Negative) Urine Ketones Negative (Negative) Urine Blood Negative (Negative) Urine Nitrite Negative (Negative) Urine Bilirubin Negative (Negative) Urine Urobilinogen Negative (Negative) Ur Leukocyte Esterase Negative (Negative) Stl C. diff Tox B Gene Positive Cdiff Gene H (Neg) Stl C.difficile Tox A&B Negative Cdiff Toxin (Negative) Influenza Type A (PCR) (Neg) Influenza Type B (PCR) (Neg) 10/24/19 10/24/19 10/24/19 Range/Units 09:20 07:33 07:33 WBC 18.00 H (4.8-10.8) K/uL RBC 4.72 (4.7-6.1) M/uL Hgb 15.6 (14.0-18.0) g/dL Hct 47.4 (42-52) % MCV 100.4 H (80-100) fL MCH 33.1 (25-34) pg MCHC 32.9 (32-36) g/dL RDW Std Deviation 56.3 H (36.4-46.3) fL RDW Coeff of Mague 15.4 H (11.5-14.5) % Plt Count 136 (130-400) K/uL MPV 12.5 H (7.4-10.4) fL Immature Gran % (Auto) % Neut % (Auto) % Lymph % (Auto) % [place] % (Auto) % Eos % (Auto) % Baso % (Auto) % Immature Gran # (Auto) (0.00-0.02) K/uL Neut # (Auto) (1.4-6.5) K/uL Lymph # (Auto) (1.2-3.4) K/uL [place] # (Auto) (0.11-0.59) K/uL Eos # (Auto) (0-0.5) K/uL Baso # (Auto) (0-0.2) K/uL Platelet Estimate (Normal) Sodium (136-145) mmol/L Potassium 4.0 (3.5-5.1) mmol/L Chloride (98-107) mmol/L Carbon Dioxide (21-32) mmol/L Anion Gap (3-11) BUN (7-18) mg/dl Creatinine (0.6-1.4) mg/dl Est Cr Clr Drug Dosing ml/min Est GFR ( Amer) Est GFR (Non-Af Amer) BUN/Creatinine Ratio (10-20) Glucose (70-99) mg/dl POC Glucose (70-99) mg/dl Lactate (0.4-2.0) mmol/L Calcium (8.5-10.1) mg/dl Phosphorus (2.5-4.9) mg/dl Magnesium (1.8-2.4) mg/dl Total Bilirubin (0.2-1) mg/dl AST 23 (15-37) U/L ALT (12-78) U/L Alkaline Phosphatase (45-117) U/L Total Protein (6.4-8.2) gm/dl Albumin (3.4-5.0) gm/dl Globulin (2.5-4.0) gm/dl Albumin/Globulin Ratio (0.9-2) Procalcitonin 0.06 (0-0.5) ng/ml Urine Color Urine Appearance (Clear) Urine pH (4.5-7.5) Ur Specific [place] (1.000-1.030) Urine Protein (Negative) Urine Glucose (UA) (Negative) Urine Ketones (Negative) Urine Blood (Negative) Urine Nitrite (Negative) Urine Bilirubin (Negative) Urine Urobilinogen (Negative) Ur Leukocyte Esterase (Negative) Stl C. diff Tox B Gene (Neg) Stl C.difficile Tox A&B (Negative) Influenza Type A (PCR) (Neg) Influenza Type B (PCR) (Neg) 10/24/19 10/24/19 10/24/19 Range/Units 07:33 07:10 06:38 WBC (4.8-10.8) K/uL RBC (4.7-6.1) M/uL Hgb (14.0-18.0) g/dL Hct (42-52) % MCV (80-100) fL MCH (25-34) pg MCHC (32-36) g/dL RDW Std Deviation (36.4-46.3) fL RDW Coeff of Mague (11.5-14.5) % Plt Count (130-400) K/uL MPV (7.4-10.4) fL Immature Gran % (Auto) % Neut % (Auto) % Lymph % (Auto) % [place] % (Auto) % Eos % (Auto) % Baso % (Auto) % Immature Gran # (Auto) (0.00-0.02) K/uL Neut # (Auto) (1.4-6.5) K/uL Lymph # (Auto) (1.2-3.4) K/uL [place] # (Auto) (0.11-0.59) K/uL Eos # (Auto) (0-0.5) K/uL Baso # (Auto) (0-0.2) K/uL Platelet Estimate (Normal) Sodium (136-145) mmol/L Potassium (3.5-5.1) mmol/L Chloride (98-107) mmol/L Carbon Dioxide (21-32) mmol/L Anion Gap (3-11) BUN (7-18) mg/dl Creatinine (0.6-1.4) mg/dl Est Cr Clr Drug Dosing ml/min Est GFR ( Amer) Est GFR (Non-Af Amer) BUN/Creatinine Ratio (10-20) Glucose (70-99) mg/dl POC Glucose (70-99) mg/dl Lactate 1.9 (0.4-2.0) mmol/L Calcium (8.5-10.1) mg/dl Phosphorus (2.5-4.9) mg/dl Magnesium (1.8-2.4) mg/dl Total Bilirubin (0.2-1) mg/dl AST (15-37) U/L ALT (12-78) U/L Alkaline Phosphatase (45-117) U/L Total Protein (6.4-8.2) gm/dl Albumin (3.4-5.0) gm/dl Globulin (2.5-4.0) gm/dl Albumin/Globulin Ratio (0.9-2) Procalcitonin (0-0.5) ng/ml Urine Color Urine Appearance (Clear) Urine pH (4.5-7.5) Ur Specific [place] (1.000-1.030) Urine Protein (Negative) Urine Glucose (UA) (Negative) Urine Ketones (Negative) Urine Blood (Negative) Urine Nitrite (Negative) Urine Bilirubin (Negative) Urine Urobilinogen (Negative) Ur Leukocyte Esterase (Negative) Stl C. diff Tox B Gene (Neg) Stl C.difficile Tox A&B (Negative) Influenza Type A (PCR) Neg for Influ A (Neg) Influenza Type B (PCR) Neg for Influ B (Neg) Medications Administered Current Inpatient Medications Acetaminophen (Tylenol) 650 mg PO Q4H PRN PRN Reason: pain/fever Stop: 11/23/19 13:38 Al Hydrox/Mg Hydrox/Simethicone (Maalox) 30 ml PO Q6H PRN PRN Reason: Dyspepsia Stop: 11/23/19 13:38 Aspirin (Ecotrin Ectab) 81 mg PO DAILY [facility] Stop: 11/24/19 08:59 Dextrose (Dextrose 50%) 25 - 50 ml IV UD PRN; Protocol PRN Reason: Hypoglycemia Protocol Stop: 11/23/19 13:38 Glucagon (Glucagen) 1 mg SQ UD PRN; Protocol PRN Reason: Hypoglycemia Protocol Stop: 11/23/19 13:38 Glucose (Dex4 Glucose) 4 - 8 tabs PO UD PRN; Protocol PRN Reason: Hypoglycemia Protocol Stop: 11/23/19 13:38 Glucose (Glucose 40%) 15 - 30 gm PO UD PRN; Protocol PRN Reason: Hypoglycemia Protocol Stop: 11/23/19 13:38 Heparin Sodium (Porcine) (Heparin Sodium (Porcine)) 5,000 units SQ Q8 [facility] Stop: 11/23/19 13:59 Last Admin: 10/25/19 05:53 Dose: 5,000 units Documented by: Lactated Ringer's (Lr) 1,000 mls @ 80 mls/hr IV .[id number] [facility] Stop: 11/23/19 13:38 Last Admin: 10/25/19 01:39 Dose: 80 mls/hr Documented by: Potassium Chloride (K David / Wtr) 10 meq in 100 mls @ 100 mls/hr IV Q1H [facility] Stop: 10/25/19 10:29 Insulin Aspart (Novolog Flexpen) 0 units SC Q6 [facility] Stop: 11/23/19 17:59 Last Admin: 10/25/19 05:53 Dose: Not Given Documented by: Lisinopril (Zestril) 10 mg PO DAILY [facility] Stop: 11/24/19 08:59 Metoprolol Succinate (Toprol Xl) 100 mg PO DAILY [facility] Stop: 11/24/19 08:59 Miscellaneous (Carbohydrates For Hypoglycemia) 15 - 30 gm PO UD PRN PRN Reason: Hypoglycemia Protocol Stop: 11/23/19 13:38 Ondansetron HCl (Zofran) 4 mg IV Q6H PRN PRN Reason: Nausea Stop: 11/23/19 13:38 Rosuvastatin Calcium (Crestor) 10 mg PO DAILY [facility] Stop: 11/24/19 08:59 (1) Diarrhea Diarrhea type: unspecified type Qualified Code(s): R19.7 - Diarrhea, unspecified
[2019-10-25] MEDS: POTASSIUM CHLORIDE / WTR 10 MEQ/100 ML PLCT IV SCH ×3 (08:29→10:41)
[2019-10-25] MEDS: ROSUVASTATIN CALCIUM 10 MG TAB PO SCH (08:30)
[2019-10-25] MEDS: METOPROLOL SUCC 50MG EXT REL TAB PO SCH (08:30)
[2019-10-25] MEDS: ASPIRIN 81 MG ECTAB PO SCH (08:30)
[2019-10-25] MEDS: lisinopriL 10 MG TAB PO SCH (08:30)
[2019-10-25] MEDS ORDERED: Nursing to Pharmacy Communication ONE (08:31)
[2019-10-25] MEDS ORDERED: INSULIN ASPART 100 UNITS/ML 3 ML PEN SC SCH ×2 (08:45→11:30)
--- NOTE | 2019-10-25 09:44 | XRay Report ---
XR KUB/Abdomen 1 view CLINICAL HISTORY: Nausea and vomiting. COMPARISON STUDY: 10/24/2019 FINDINGS: There is gas present within nondilated loops of large and small bowel. There are no transit ion zones to indicate bowel obstruction. IMPRESSION: Nonobstructive bowel gas pattern. ACT 112: Negative or not required by law. Electronically signed by: Harjit Carrera M.D. 10/25/2019 9:42 AM
[2019-10-26] MEDS: LACTATED RINGER'S 1,000 ML IV SCH ×2 (01:19→13:25)
--- NOTE | 2019-10-26 01:40 | Emergency Department Note ---
Entered by Alina Oglesby acting as a scribe for Mary Levine DO History of Present Illness General Chief complaint: Flu Like Symptoms Stated complaint: FLU LIKE SYMPTOMS Time Seen by Provider: 10/24/19 06:39 Source: patient History of Present Illness Onset (ago): hour(s) (0300 this morning) Location: head (syncope) Pain Consistency: + other (episodic) Quality: + other (syncope) Associated symptoms: + diaphoresis, + fever/chills (Positive chills. Negative fever.), + nausea/vomiting and + syncope; no chest pain, no headaches and no shortness of breath Treatments prior to arrival: none The patient is an 84 year old male presenting to the Emergency Department complaining of episodic syncope starting at 0300 this morning. The patient reports that he was sitting on the toilet and suddenly lost consciousness, falling forward onto the floor. He states that he regained consciousness on the floor and doesnt believe he hit his head as it didnt hurt at that time. He explains that he originally went to the bathroom because he was vomiting and had an episode of diarrhea. He notes that once he got off the floor he walked back to his bedroom and lost consciousness again, falling onto his bedroom floor which was carpeted. He adds that his son heard him fall, found him on the ground and then brought the patient into the hospital. The patient reports that each time he regained consciousness after losing consciousness he had chills and was diaphoretic. He states that he was also nauseous and dry heaving. He notes that his son experienced these similar symptoms 1 day ago and was thought to have a G I bug. 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 The patient denies abdominal pain, hematemesis, hematochezia, fevers, headache, chest pain, blurry vision and shortness of breath. Home Medications Home Medications Medication Instructions Recorded Confirmed Type aspirin 81 mg PO DAILY 10/24/19 10/24/19 History cholecalciferol (vitamin D3) 1,000 unit PO DAILY 10/24/19 10/24/19 History [Vitamin D3] glucos sul [id number]-Mn 1 cap PO DAILY 10/24/19 10/24/19 History [Glucosamine Chondroitin] lisinopril 10 mg PO DAILY 10/24/19 10/24/19 History metformin 500 mg PO BIDM 10/24/19 10/24/19 History metoprolol succinate 100 mg PO DAILY 10/24/19 10/24/19 History multivitamin [Multiple Vitamins] 1 tab PO DAILY 10/24/19 10/24/19 History rosuvastatin 10 mg PO DAILY 10/24/19 10/24/19 History triamterene-hydrochlorothiazid 1 cap PO DAILY 10/24/19 10/24/19 History Allergies Allergy/AdvReac Type Severity Reaction Status Date / Time nitrofurantoin Allergy Unknown Unknown Verified 10/24/19 06:35 Penicillins Allergy Unknown Unknown Verified 10/24/19 06:35 Sulfa (Sulfonamide Allergy Unknown Unknown Verified 10/24/19 06:35 Antibiotics) sulfamethoxazole Allergy Unknown Unknown Verified 10/24/19 06:35 trimethoprim Allergy Unknown Unknown Verified 10/24/19 06:35 Past Med/Surg History Medical History CAD (coronary artery disease) CKD (chronic kidney disease) stage 3, GFR 30-59 ml/min Diabetes (Chronic) Frequent PVCs HLD (hyperlipidemia) Hypertension (Chronic) Surgical History History of arthroscopic knee surgery History of cataract extraction History of colonoscopy with polypectomy Last 03/20/2015 adenomatous polyp History of hernia repair Bilateral Hx of CABG (Resolved) x 3 BARRAZA to LAD, SVG to diagonal and obtuse 2004 Family History Mother , 72 No problems noted. Father Cancer, Onset Age: 78 MDS Brother , 39 Sudden Social History Preferred Language: Lebanese Communication Ability: Effective Torpedoman'S Mate Required: No Beliefs That Will Affect Care: None marital status: Current Living Situation: Spouse and Family Current Living Situation Comment: lives with and son Other Information That Helps Us Care for You: No Feels Safe at Home: Yes Safety Concerns: Feels Safe At This Time Smoking Status: Former smoker Tobacco Type: smokeless tobacco ; Do You Dip or Chew Tobacco: No ; Second Hand Exposure: No ; Tobacco Cessation Education Re quested by Patient: No Hx Alcohol Use: Yes Alcohol type: beer Alcohol Intake Frequency: Holidays/Special Occasions Hx Substance Use: No Review of Systems See HPI for pertinent positives & negatives. and A total of 10 systems reviewed and were otherwise negative Physical Exam Vital Signs Vital Signs - 24 hr 10/24/19 06:06 10/24/19 06:52 10/24/19 07:06 Temperature 97.3 F L Temperature Source Oral Pulse Rate 82 Pulse Rate [Left Finger] 71 Respiratory Rate 18 22 Respiratory Effort / Characteristics Non-Labored Respiratory Depth Normal Respiratory Pattern Regular Blood Pressure 133/78 Blood Pressure [Right Arm] 115/65 Blood Pressure Mean 96 Blood Pressure Mean [Right Arm] 81 Pulse Oximetry 96 94 Oxygen Delivery Method Room Air Room Air Sepsis Recent Fever Within 48 Hours No Sepsis Action Taken by Nursing No Action Required 10/24/19 08:32 10/24/19 09:33 10/24/19 10:12 Temperature Temperature Source Pulse Rate Pulse Rate [Left Finger] 73 77 80 Respiratory Rate 24 22 22 Respiratory Effort / Characteristics Respiratory Depth Respiratory Pattern Blood Pressure Blood Pressure [Right Arm] 109/68 101/59 L 123/73 Blood Pressure Mean Blood Pressure Mean [Right Arm] 81 73 89 Pulse Oximetry 93 95 95 Oxygen Delivery Method Room Air Room Air Room Air Sepsis Recent Fever Within 48 Hours Sepsis Action Taken by Nursing 10/24/19 10:47 Temperature Temperature Source Pulse Rate Pulse Rate [Left Finger] 87 Respiratory Rate 24 Respiratory Effort / Characteristics Respiratory Depth Respiratory Pattern Blood Pressure Blood Pressure [Right Arm] 140/62 Blood Pressure Mean Blood Pressure Mean [Right Arm] 88 Pulse Oximetry 96 Oxygen Delivery Method Room Air Sepsis Recent Fever Within 48 Hours Sepsis Action Taken by Nursing GENERAL: alert, well appearing, well nourished, no distress, non-toxic EYE EXAM: normal conjunctiva, PERRL and EOM's grossly intact OROPHARYNX: no exudate, no erythema, lips, buccal mucosa, and tongue normal and mucous membranes are moist NECK: supple, no nuchal rigidity, no adenopathy, non-tender LUNGS: Clear to auscultation. Normal chest wall mechanics, no w/r/r HEART: no murmurs, S1 normal and S2 normal CHEST: Well healed midline sternotomy scar. ABDOMEN: Mild abdominal distention. Tympany to percussion bilateral upper quadrants. No masses, no rebound or guarding. BACK: Back is symmetrical on inspection and there is no deformity, no midline tenderness, no CVA tenderness. SKIN: no rashes and no bruising UPPER EXTREMITIES: upper extremities are grossly normal. FROM, nml pulses b/l. LOWER EXTREMITIES: No pitting edema. FROM, nml pulses b/l. NEURO EXAM: Normal sensorium, cranial nerves II-XII grossly intact, normal speech, no gross weakness of arms, no gross weakness of legs. Course Course 0643: The patient was evaluated in room B9, and a complete history and physical examination were performed. 0902: I reevaluated the patient at this time. 1110: I reevaluated the patient at this time. I updated him on his lab work and imaging studies. 1130: I discussed the patient's case with Dr. De Le[facility] hospitalist. He will evaluate the patient for further management. Administered Medications Aspirin (Ecotrin Ectab) 81 mg PO DAILY EMMA Stop: 11/24/19 08:59 Last Admin: 10/25/19 08:30 Dose: 81 mg Documented by: [id number] Heparin Sodium (Porcine) (Heparin Sodium (Porcine)) 5,000 units SQ Q8 EMMA Stop: 11/23/19 13:59 Last Admin: 10/25/19 21:09 Dose: 5,000 units Documented by: [id number] Cosigned by: [id number] Admin: 10/25/19 12:46 Dose: 5,000 units Documented by: [id number] Cosigned by: [id number] Admin: 10/25/19 05:53 Dose: 5,000 units Documented by: [id number] Cosigned by: [id number] Admin: 10/24/19 22:24 Dose: 5,000 units Documented by: [id number] Cosigned by: [id number] Admin: 10/24/19 15:37 Dose: 5,000 units Documented by: [id number] Cosigned by: [id number] Lactated Ringer's (Lr) 1,000 mls @ 80 mls/hr IV .[id number] EMMA Stop: 11/23/19 13:38 Last Admin: 10/26/19 01:19 Dose: 80 mls/hr Documented by: [id number] Infusion: 10/26/19 01:19 Dose: 80 mls/hr Documented by: [id number] Admin: 10/25/19 13:51 Dose: 80 mls/hr Documented by: [id number] Infusion: 10/25/19 12:18 Dose: 0 mls/hr Documented by: [id number] Admin: 10/25/19 01:39 Dose: 80 mls/hr Documented by: [id number] Infusion: 10/25/19 01:39 Dose: 0 mls/hr Documented by: [id number] Admin: 10/24/19 13:44 Dose: 80 mls/hr Documented by: [id number] Insulin Aspart (Novolog Flexpen) 0 units SC ACHS EMMA Stop: 11/24/19 11:29 Last Admin: 10/25/19 21:30 Dose: Not Given Documented by: [id number] Cosigned by: [id number] Admin: 10/25/19 18:28 Dose: 1 units Documented by: [id number] Cosigned by: [id number] Admin: 10/25/19 12:45 Dose: 5 units Documented by: [id number] Cosigned by: [id number] Lisinopril (Zestril) 10 mg PO DAILY EMMA Stop: 11/24/19 08:59 Last Admin: 10/25/19 08:30 Dose: 10 mg Documented by: [id number] Metoprolol Succinate (Toprol Xl) 100 mg PO DAILY EMMA Stop: 11/24/19 08:59 Last Admin: 10/25/19 08:30 Dose: 100 mg Documented by: [id number] Rosuvastatin Calcium (Crestor) 10 mg PO DAILY EMMA Stop: 11/24/19 08:59 Last Admin: 10/25/19 08:30 Dose: 10 mg Documented by: [id number] Discontinued Medications Sodium Chloride (Nss) 500 mls @ 500 mls/hr IV .Q1H EMMA Stop: 10/24/19 07:59 Last Infusion: 10/24/19 08:26 Dose: 0 mls/hr Documented by: [id number] Admin: 10/24/19 07:04 Dose: 500 mls/hr Documented by: [id number] Sodium Chloride (Nss) 500 mls @ 125 mls/hr IV .Q4H EMMA Stop: 11/23/19 07:14 Last Admin: 10/24/19 13:44 Dose: Not Given Documented by: [id number] Infusion: 10/24/19 10:49 Dose: 0 mls/hr Documented by: [id number] Admin: 10/24/19 08:29 Dose: 125 mls/hr Documented by: [id number] Sodium Chloride (Nss) 500 mls @ 999 mls/hr IV .Q31M ONE Stop: 10/24/19 10:43 Last Infusion: 10/24/19 11:20 Dose: 0 mls/hr Documented by: [id number] Admin: 10/24/19 10:48 Dose: 999 mls/hr Documented by: [id number] Potassium Chloride (K David / Wtr) 10 meq in 100 mls @ 100 mls/hr IV Q1H EMMA Stop: 10/25/19 10:29 Last Infusion: 10/25/19 11:34 Dose: 0 mls/hr Documented by: [id number] Admin: 10/25/19 10:41 Dose: 100 mls/hr Documented by: [id number] Infusion: 10/25/19 10:35 Dose: 0 mls/hr Documented by: [id number] Admin: 10/25/19 09:38 Dose: 100 mls/hr Documented by: [id number] Infusion: 10/25/19 09:28 Dose: 0 mls/hr Documented by: [id number] Admin: 10/25/19 08:29 Dose: 100 mls/hr Documented by: [id number] Insulin Aspart (Novolog Flexpen) 0 units SC Q6 EMMA Stop: 11/23/19 17:59 Last Admin: 10/25/19 05:53 Dose: Not Given Documented by: [id number] Cosigned by: [id number] Admin: 10/24/19 23:57 Dose: Not Given Documented by: [id number] Cosigned by: [id number] Admin: 10/24/19 19:02 Dose: Not Given Documented by: [id number] Cosigned by: [id number] Insulin Aspart (Novolog Flexpen) 0 units SC ACHS EMMA Stop: 11/24/19 08:44 Last Admin: 10/25/19 09:05 Dose: Not Given Documented by: [id number] Cosigned by: [id number] Ioversol (Optiray 320 100ml) 94 ml IV ONCE PRN PRN Reason: Interaction Checking Stop: 10/28/19 10:32 Last Admin: 10/24/19 10:34 Dose: 94 ml Documented by: [id number] Ondansetron HCl (Zofran Odt) 4 mg PO Q4H PRN PRN Reason: Nausea Stop: 11/23/19 06:54 Last Admin: 10/24/19 07:04 Dose: 4 mg Documented by: [id number] Ondansetron HCl (Zofran) 4 mg IV NOW STA Stop: 10/24/19 08:28 Last Admin: 10/24/19 08:31 Dose: 4 mg Documented by: [id number] Medical Decision Making Differential Diagnosis Differential diagnosis: Etiologies such as gastroenteritis, food borne illness, infections, appendicitis, diverticulitis, inflammatory bowel disease, obstruction, GI bleed, biliary pathology, as well as others were entertained. Medical Records Attestation: I reviewed the patient's medical records. Home Medications Current Medication List: was personally reviewed by me Laboratory Data Attestation: I reviewed the patient's lab results. Result diagrams: 10/25/19 05:29 10/25/19 05:29 Lab Results 10/24/19 10/24/19 10/24/19 Range/Units 06:38 06:38 07:10 WBC 22.38 H (4.8-10.8) K/uL RBC 5.17 (4.7-6.1) M/uL Hgb 17.2 (14.0-18.0) g/dL Hct 51.9 (42-52) % MCV 100.4 H (80-100) fL MCH 33.3 (25-34) pg MCHC 33.1 (32-36) g/dL RDW Std Deviation 56.4 H (36.4-46.3) fL RDW Coeff of Mague 15.4 H (11.5-14.5) % Plt Count 150 (130-400) K/uL MPV 13.0 H (7.4-10.4) fL Immature Gran % (Auto) 0.3 % Neut % (Auto) 82.3 % Lymph % (Auto) 3.7 % [place] % (Auto) 7.2 % Eos % (Auto) 6.3 % Baso % (Auto) 0.2 % Immature Gran # (Auto) 0.07 H (0.00-0.02) K/uL Neut # (Auto) 18.41 H (1.4-6.5) K/uL Lymph # (Auto) 0.82 L (1.2-3.4) K/uL [place] # (Auto) 1.62 H (0.11-0.59) K/uL Eos # (Auto) 1.42 H (0-0.5) K/uL Baso # (Auto) 0.04 (0-0.2) K/uL Sodium 136 (136-145) mmol/L Potassium (3.5-5.1) mmol/L Chloride 105 (98-107) mmol/L Carbon Dioxide 22 (21-32) mmol/L Anion Gap 10.0 (3-11) BUN 31 H (7-18) mg/dl Creatinine 1.39 (0.6-1.4) mg/dl Est Cr Clr Drug Dosing 33.1 ml/min Est GFR ( Amer) 53.6 Est GFR (Non-Af Amer) 46.2 BUN/Creatinine Ratio 22.2 H (10-20) Glucose 144 H (70-99) mg/dl Lactate (0.4-2.0) mmol/L Calcium 10.0 (8.5-10.1) mg/dl Total Bilirubin 1.1 H (0.2-1) mg/dl AST (15-37) U/L ALT 40 (12-78) U/L Alkaline Phosphatase 60 (45-117) U/L Total Protein 8.6 H (6.4-8.2) gm/dl Albumin 4.7 (3.4-5.0) gm/dl Globulin 3.9 (2.5-4.0) gm/dl Albumin/Globulin Ratio 1.2 (0.9-2) Procalcitonin (0-0.5) ng/ml Urine Color Urine Appearance (Clear) Urine pH (4.5-7.5) Ur Specific [place] (1.000-1.030) Urine Protein (Negative) Urine Glucose (UA) (Negative) Urine Ketones (Negative) Urine Blood (Negative) Urine Nitrite (Negative) Urine Bilirubin (Negative) Urine Urobilinogen (Negative) Ur Leukocyte Esterase (Negative) Stl C. diff Tox B Gene (Neg) Stl C.difficile Tox A&B (Negative) Influenza Type A (PCR) Neg for Influ A (Neg) Influenza Type B (PCR) Neg for Influ B (Neg) 10/24/19 10/24/19 10/24/19 Range/Units 07:33 07:33 07:33 WBC (4.8-10.8) K/uL RBC (4.7-6.1) M/uL Hgb (14.0-18.0) g/dL Hct (42-52) % MCV (80-100) fL MCH (25-34) pg MCHC (32-36) g/dL RDW Std Deviation (36.4-46.3) fL RDW Coeff of Mague (11.5-14.5) % Plt Count (130-400) K/uL MPV (7.4-10.4) fL Immature Gran % (Auto) % Neut % (Auto) % Lymph % (Auto) % [place] % (Auto) % Eos % (Auto) % Baso % (Auto) % Immature Gran # (Auto) (0.00-0.02) K/uL Neut # (Auto) (1.4-6.5) K/uL Lymph # (Auto) (1.2-3.4) K/uL [place] # (Auto) (0.11-0.59) K/uL Eos # (Auto) (0-0.5) K/uL Baso # (Auto) (0-0.2) K/uL Sodium (136-145) mmol/L Potassium 4.0 (3.5-5.1) mmol/L Chloride (98-107) mmol/L Carbon Dioxide (21-32) mmol/L Anion Gap (3-11) BUN (7-18) mg/dl Creatinine (0.6-1.4) mg/dl Est Cr Clr Drug Dosing ml/min Est GFR ( Amer) Est GFR (Non-Af Amer) BUN/Creatinine Ratio (10-20) Glucose (70-99) mg/dl Lactate 1.9 (0.4-2.0) mmol/L Calcium (8.5-10.1) mg/dl Total Bilirubin (0.2-1) mg/dl AST 23 (15-37) U/L ALT (12-78) U/L Alkaline Phosphatase (45-117) U/L Total Protein (6.4-8.2) gm/dl Albumin (3.4-5.0) gm/dl Globulin (2.5-4.0) gm/dl Albumin/Globulin Ratio (0.9-2) Procalcitonin 0.06 (0-0.5) ng/ml Urine Color Urine Appearance (Clear) Urine pH (4.5-7.5) Ur Specific [place] (1.000-1.030) Urine Protein (Negative) Urine Glucose (UA) (Negative) Urine Ketones (Negative) Urine Blood (Negative) Urine Nitrite (Negative) Urine Bilirubin (Negative) Urine Urobilinogen (Negative) Ur Leukocyte Esterase (Negative) Stl C. diff Tox B Gene (Neg) Stl C.difficile Tox A&B (Negative) Influenza Type A (PCR) (Neg) Influenza Type B (PCR) (Neg) 10/24/19 10/24/19 10/24/19 Range/Units 09:20 10:05 10:05 WBC 18.00 H (4.8-10.8) K/uL RBC 4.72 (4.7-6.1) M/uL Hgb 15.6 (14.0-18.0) g/dL Hct 47.4 (42-52) % MCV 100.4 H (80-100) fL MCH 33.1 (25-34) pg MCHC 32.9 (32-36) g/dL RDW Std Deviation 56.3 H (36.4-46.3) fL RDW Coeff of Mague 15.4 H (11.5-14.5) % Plt Count 136 (130-400) K/uL MPV 12.5 H (7.4-10.4) fL Immature Gran % (Auto) % Neut % (Auto) % Lymph % (Auto) % [place] % (Auto) % Eos % (Auto) % Baso % (Auto) % Immature Gran # (Auto) (0.00-0.02) K/uL Neut # (Auto) (1.4-6.5) K/uL Lymph # (Auto) (1.2-3.4) K/uL [place] # (Auto) (0.11-0.59) K/uL Eos # (Auto) (0-0.5) K/uL Baso # (Auto) (0-0.2) K/uL Sodium (136-145) mmol/L Potassium (3.5-5.1) mmol/L Chloride (98-107) mmol/L Carbon Dioxide (21-32) mmol/L Anion Gap (3-11) BUN (7-18) mg/dl Creatinine (0.6-1.4) mg/dl Est Cr Clr Drug Dosing ml/min Est GFR ( Amer) Est GFR (Non-Af Amer) BUN/Creatinine Ratio (10-20) Glucose (70-99) mg/dl Lactate (0.4-2.0) mmol/L Calcium (8.5-10.1) mg/dl Total Bilirubin (0.2-1) mg/dl AST (15-37) U/L ALT (12-78) U/L Alkaline Phosphatase (45-117) U/L Total Protein (6.4-8.2) gm/dl Albumin (3.4-5.0) gm/dl Globulin (2.5-4.0) gm/dl Albumin/Globulin Ratio (0.9-2) Procalcitonin (0-0.5) ng/ml Urine Color Yellow Urine Appearance Clear (Clear) Urine pH 5.5 (4.5-7.5) Ur Specific [place] 1.015 (1.000-1.030) Urine Protein Negative (Negative) Urine Glucose (UA) Negative (Negative) Urine Ketones Negative (Negative) Urine Blood Negative (Negative) Urine Nitrite Negative (Negative) Urine Bilirubin Negative (Negative) Urine Urobilinogen Negative (Negative) Ur Leukocyte Esterase Negative (Negative) Stl C. diff Tox B Gene Positive Cdiff Gene H (Neg) Stl C.difficile Tox A&B Negative Cdiff Toxin (Negative) Influenza Type A (PCR) (Neg) Influenza Type B (PCR) (Neg) Imaging Data Radiologist's Impression: Radiology results as stated below per my review and the radiologist's interpretation: CT OF THE ABDOMEN AND PELVIS WITH CONTRAST CLINICAL HISTORY: vomiting, nausea, concern for SBO vs Ileus COMPARISON STUDY: Abdominal series performed earlier today. TECHNIQUE: Following IV administration of 94 mL of Optiray-320, axial images of the abdomen and pelvis were obtained from the lung bases to the proximal femurs. Images were reviewed in the axial, sagittal, and coronal planes. IV contrast was administered without complication. Automated exposure control was utilized for the study. A dose lowering technique was utilized adhering to the principles of ALARA. CT DOSE: 745.41 mGycm FINDINGS: The heart is moderately enlarged. No pneumatosis, free air or portal venous gas is present. The liver, adrenal glands and pancreas are unremarkable. There are calcified cannula was within the spleen. There are gallstones within the gallbladder without evidence for acute cholecystitis. A few calculi within lower pole the left kidney measure up to 3 mm. There are no ureteral calculi. There is no hydronephrosis. Extensive colonic diverticulosis is noted without evidence for acute diverticulitis. The appendix is normal. The proximal to mid small bowel is fluid-filled and mildly dilated. There is a possible transition point within the right lower quadrant on image 255 of 461. Distal small bowel is decompressed. Prostate is moderately enlarged. Bladder wall thickening is chronic. There are no suspicious osseous lesions. IMPRESSION: 1. Mildly dilated fluid-filled proximal to mid small bowel with probable transition point within the right lower quadrant. The appearance favors a partial small bowel obstruction. An ileus could appear similar but is considered less likely. 2. Extensive colonic diverticulosis without evidence for acute diverticulitis. 3. Left-sided nephrolithiasis. 4. Cholelithiasis. ACT 112: Negative or not required by law. Electronically signed by: Klaus Weathers M.D. 10/24/2019 10:51 AM PA CHEST RADIOGRAPH AND UPRIGHT AND SUPINE AP RADIOGRAPHS OF THE ABDOMEN CLINICAL HISTORY: n/v/d COMPARISON STUDY: Chest radiograph November 02, 2015. FINDINGS: There are median sternotomy wires. Mild cardiomegaly is noted without evidence for pulmonary edema. Minimal left basilar opacity favors atelectasis. There is no pneumothorax or definite pleural effusion. No free air is present. A few mildly dilated loops of small bowel within the left abdomen are noted. There is moderate vascular calcification. IMPRESSION: 1. No free air. 2. Mild small bowel dilatation. This could reflect a partial small bowel obstruction or ileus. 3. Left basilar opacity which favors atelectasis. ACT 112: Negative or not required by law. Electronically signed by: Klaus Weathers M.D. 10/24/2019 9:52 AM Blood Pressure Blood Pressure Findings: Elevated blood pressure Blood Pressure Disposition: further management by hospitalist TOSHIA Cifuentse Patient presenting here after nausea, vomiting, and diarrhea at home led to likely orthostatic and vasovagal episode of syncope. Patient here felt improved and had no recurrent vomiting or diarrhea. Patient with story most suggestive of viral syndrome given sick contact with family member whom he also resides with with similar symptoms yesterday. Patient here felt improved with initial labs and medication and was beginning to tolerate sips of p.o. Initial white blood cell count markedly elevated though and concern for infection versus stress demargination. Additional labs were added though and were reassuring including the lactic acid and pro calcitonin. A repeat white blood cell count was performed after some IV fluid hydration as the patient continued to look improved and was already showing signs of improvement, however out of concern for GI symptoms and patient's advanced age and x-ray was performed which was suggestive of an ileus versus a partial SBO. Because of this a CT was performed which was concerning for a partial SBO. This was discussed with the patient at bedside and he verbalized understanding. Case discussed with hospitalist for additional evaluation and management. I do not suspect bacteremia/sepsis, perforation, GI bleed, diverticulitis, or urinary tract infection. Patient remained improved here. He was made n.p.o. and kept on IV fluids in the emergency room. Impression & Plan Vomiting, Diarrhea, Partial small bowel obstruction Discharge Plan Visit Data *Final* Discharge Date/Time: 10/24/19 13:21 Chief Complaint: Flu Like Symptoms Stated Complaint: FLU LIKE SYMPTOMS ED Provider: Mary Levine ED Midlevel Provider: Linh Garnett Discharge Problem: Vomiting, Diarrhea, Partial small bowel obstruction Patient Disposition: Admitted As Inpatient Discharge Instructions Interventions: ED Discharge Assessment Last Done: 10/24/19 13:21 Discharge Problem: Vomiting Qualifiers: Vomiting type: unspecified Vomiting Intractability: unspecified Nausea presence: unspecified Qualified Code(s): R11.10 - Vomiting, unspecified Diarrhea Qualifiers: Diarrhea type: unspecified type Qualified Code(s): R19.7 - Diarrhea, unsp ecified The scribe's documentation has been prepared under my direction and personally reviewed by me in its entirety. I confirm that the note above accurately reflects all work, treatment, procedures, and medical decision making performed by me.
[2019-10-26] MEDS: HEPARIN SOD 5,000 UNIT/0.5 ML VIAL SQ SCH ×3 (05:47→21:11)
[2019-10-26 05:58] LABS: Hemoglobin 12.6 g/dL (14.0-18.0); Mean Corpuscular Hemoglobin 32.8 pg (25-34); Mean Corpuscular Hgb Conc 32.3 g/dL (32-36); Mean Corpuscular Volume 101.6 fL (80-100); Mean Platelet Volume 11.6 fL (7.4-10.4); Platelet Count 103 K/uL (130-400); RDW Coefficient of Variation 15.9 % (11.5-14.5); RDW Standard Deviation 58.9 fL (36.4-46.3); Red Blood Count 3.84 M/uL (4.7-6.1); White Blood Count 4.99 K/uL (4.8-10.8)
[2019-10-26 06:26] LABS: BUN Creatinine Ratio 14.9 (10-20); Calcium 7.9 mg/dl (8.5-10.1); Est GFR (African American) 85.9; Est GFR (Non-African American) 74.2; Magnesium 1.9 mg/dl (1.8-2.4); Potassium 3.6 mmol/L (3.5-5.1)
[2019-10-26] MEDS ORDERED: SENNA 8.8 MG/5 ML UDP PO PRN (06:47)
--- NOTE | 2019-10-26 07:00 | Surgery Progress Note ---
Date of Service October 26, 2019 Assessment & Plan (1) Diarrhea: (2) Partial small bowel obstruction: will adv diet add senna syrup seems to progressing- KUB yesterday looked relatively normal Subjective feeling better soft bm naya clears Physical Exam Physical Exam: abd soft, pos bowel sounds Constitutional: well developed and well nourished; no acute distress Eyes: + anicteric sclerae Respiratory: normal respiratory effort; no respiratory distress Cardiovascular: Rate/Rhythm: regular rate Skin: no rashes, warm and dry Neurologic: awake Psychiatric: Orientation: alert Results & Data Vital Signs (Past 12 Hours) Vital Signs Temp Pulse Pulse Resp BP Pulse Ox 10/26/19 05:51 46 L 102/59 L 10/25/19 23:27 36.9 C 49 L 16 97/56 L 94 PG Care Time/CCT Total # of Minutes Spent Total Time Spent with Patient: Total time spent is greater than 50% in coordination of care (as documented) at patient's floor/unit and/or counseling patient: Coding Level of Care Code 39136 Inpt Consult Level 3 Diagnoses Diarrhea R19.7 Diarrhea type: unspecified type Partial small bowel obstruction K56.600 (1) Diarrhea Diarrhea type: unspecified type Qualified Code(s): R19.7 - Diarrhea, unspecified
[2019-10-26] MEDS: METOPROLOL SUCC 50MG EXT REL TAB PO SCH (09:15)
[2019-10-26] MEDS: lisinopriL 10 MG TAB PO SCH (09:15)
[2019-10-26] MEDS: ASPIRIN 81 MG ECTAB PO SCH (09:15)
[2019-10-26] MEDS: ROSUVASTATIN CALCIUM 10 MG TAB PO SCH (09:16)
[2019-10-26] MEDS: INSULIN ASPART 100 UNITS/ML 3 ML PEN SC SCH ×4 (09:17→21:05)
--- NOTE | 2019-10-26 10:03 | Hospitalist Progress Note ---
Date of Service October 26, 2019 Assessment & Plan (1) Partial small bowel obstruction: (2) Diarrhea: This is an 84-year-old male who has significant PMH of CAD with history of CABG x3, T2DM, HTN, HLD, CKD stage III, frequent PVCs, vitamin D deficiency who presents to ED secondary to emesis x1, multiple episodes of loose stool since 3 AM. Imaging reveals partial SBO with probable transition point within the right lower quadrant. Patient with leukocytosis 18,000, lactic acid 1.9, stool for C. difficile negative. Admitted to medical floor bowel rest ,IVF LR 80cc/hr initially antiemetics and supportive care pt w/o active emesis or nausea; therefore did not feel NG warranted General surgery consulted - advance diet today, senna syrup and recommend ambulation Repeat KUB - does not show obstruction Pt is passing flatus, had one small watery BM yesterday AM and one formed small stool this AM (10/26) WBC down from 18K to 4.9K Stool cltx - negative, blood cltx - negative Keep electrolytes wnl, goal K >4, and goal Mg >2 (3) CAD (coronary artery disease): hx of CABG x 3 2004 denies chest pain and sob on ASA, statin, lisinopril and metoprolol as outpt follows [facility] [address] cardiology (4) Diabetes: A1c 7.3 on 07/20/2018 Hold metformin NovoLog per protocol (5) Hypertension: blood pressure controlled continue metoprolol and lisinopril hold triamterene/hctz (6) CKD (chronic kidney disease) stage 3, GFR 30-59 ml/min: RAFFAELE on CKD baseline cr 1.2 bun/cr 31 and 1.39 on admission likely in setting of volume contraction due to n/v mild acute renal insufficiency IV LR 80cc/hr Resolved, current Cr 0.94 (7) DVT prophylaxis: SQ Heparin Disposition: med/surg Follow up: PCP Dr. Johnston upon discharge Admission and Anticipated Discharge Date Admission Date: October 24, 2019 Subjective Patient is lying in bed, in no acute distress. Denies any fevers, chills, chest pain, shortness of breath. He has been ambulating. Tolerated full liquid diet. Overall says that he feels much better. Had small BM this morning, which was formed KUB yesterday AM did not show obstruction Review of Systems Review of Systems: All systems reviewed & are unremarkable except as noted in HPI & below Constitutional: no fever and no chills Respiratory: no cough and no dyspnea Cardiovascular: no chest pain, no palpitations and no edema Gastrointestinal: no abdominal pain, no nausea and no vomiting Physical Exam Physical Exam: Constitutional: WD/WN, elderly, male, NAD, lying in bed, pleasant, conversing easily Head: Normocephalic, Atraumatic Eyes: PERRL, EOMI, conjunctivae normal, anicteric sclerae ENMT: external ear and nose normal, oropharynx normal Neck: normal visual inspection Respiratory: normal respiratory effort, lungs clear to auscultation, no wheeze, rales, rhonchi. Normal insp/exp effort, no accessory muscle use Cardiovascular: RRR, soft 1/6 MAGGY noted RUSB, no edema Vessels: no JVD or carotid bruit Chest: normal inspection of chest , sternal scar noted abdomen: abdomen soft,only mildly distended, bowel sounds present, nontender Musculoskeletal: no cyanosis or clubbing, extremities motor strength 5/5, moves extremities spontaneously, ambulates w/o difficulty Skin: no rashes, warm and dry normal turgor Neurologic: PERRL, EOMI, accommodation nl, no face palsy, no dysarthria CN's II-XI intact bilaterally and moves all extremities Psychiatric: A+Ox3, euthymic affect Results & Data ([facility]) Vital Signs (Past 12 Hours) Vital Signs Temp Pulse Pulse Resp BP Pulse Ox 10/26/19 09:18 55 L 107/61 95 10/26/19 07:33 36.7 C 50 L 18 108/63 94 10/26/19 05:51 46 L 102/59 L 10/25/19 23:27 36.9 C 49 L 16 97/56 L 94 Laboratory Results 10/26/19 10/26/19 10/26/19 Range/Units 07:55 05:33 05:33 WBC 4.99 (4.8-10.8) K/uL RBC 3.84 L (4.7-6.1) M/uL Hgb 12.6 L (14.0-18.0) g/dL Hct 39.0 L (42-52) % MCV 101.6 H (80-100) fL MCH 32.8 (25-34) pg MCHC 32.3 (32-36) g/dL RDW Std Deviation 58.9 H (36.4-46.3) fL RDW Coeff of Mague 15.9 H (11.5-14.5) % Plt Count 103 L (130-400) K/uL MPV 11.6 H (7.4-10.4) fL Sodium 140 (136-145) mmol/L Potassium 3.6 (3.5-5.1) mmol/L Chloride 110 H (98-107) mmol/L Carbon Dioxide 26 (21-32) mmol/L Anion Gap 4.0 (3-11) BUN 14 (7-18) mg/dl Creatinine 0.94 (0.6-1.4) mg/dl Est Cr Clr Drug Dosing 49.0 ml/min Est GFR ( Amer) 85.9 Est GFR (Non-Af Amer) 74.2 BUN/Creatinine Ratio 14.9 (10-20) Glucose 94 (70-99) mg/dl POC Glucose 105 H (70-99) mg/dl Calcium 7.9 L (8.5-10.1) mg/dl Magnesium 1.9 (1.8-2.4) mg/dl 10/25/19 10/25/19 10/25/19 Range/Units 20:42 17:11 11:49 WBC (4.8-10.8) K/uL RBC (4.7-6.1) M/uL Hgb (14.0-18.0) g/dL Hct (42-52) % MCV (80-100) fL MCH (25-34) pg MCHC (32-36) g/dL RDW Std Deviation (36.4-46.3) fL RDW Coeff of Mague (11.5-14.5) % Plt Count (130-400) K/uL MPV (7.4-10.4) fL Sodium (136-145) mmol/L Potassium (3.5-5.1) mmol/L Chloride (98-107) mmol/L Carbon Dioxide (21-32) mmol/L Anion Gap (3-11) BUN (7-18) mg/dl Creatinine (0.6-1.4) mg/dl Est Cr Clr Drug Dosing ml/min Est GFR ( Amer) Est GFR (Non-Af Amer) BUN/Creatinine Ratio (10-20) Glucose (70-99) mg/dl POC Glucose 114 H 104 H 127 H (70-99) mg/dl Calcium (8.5-10.1) mg/dl Magnesium (1.8-2.4) mg/dl (1) Diarrhea Diarrhea type: unspecified type Qualified Code(s): R19.7 - Diarrhea, unspecified
[2019-10-26] MEDS: POTASSIUM CHLORIDE / WTR 10 MEQ/100 ML PLCT IV SCH ×3 (10:29→12:27)
[2019-10-26] MEDS ORDERED: MAGNESIUM SULFATE / D5W 1 GM/100 ML BAG IV ONE (10:30)
[2019-10-27] MEDS: LACTATED RINGER'S 1,000 ML IV SCH ×2 (01:25→14:00)
[2019-10-27] MEDS: HEPARIN SOD 5,000 UNIT/0.5 ML VIAL SQ SCH ×3 (05:12→21:02)
[2019-10-27 06:24] LABS: Hematocrit (blood only) 39.7 % (42-52); Hemoglobin 12.8 g/dL (14.0-18.0); Mean Corpuscular Hemoglobin 32.5 pg (25-34); Mean Corpuscular Hgb Conc 32.2 g/dL (32-36); Mean Corpuscular Volume 100.8 fL (80-100); Platelet Count 106 K/uL (130-400); Platelet Estimate Decreased (Normal); RDW Coefficient of Variation 15.7 % (11.5-14.5); RDW Standard Deviation 58.1 fL (36.4-46.3); Red Blood Count 3.94 M/uL (4.7-6.1); White Blood Count 6.27 K/uL (4.8-10.8)
[2019-10-27 06:38] LABS: BUN Creatinine Ratio 9.7 (10-20); Calcium 8.1 mg/dl (8.5-10.1); Est GFR (African American) 81.7; Est GFR (Non-African American) 70.5; Magnesium 2.1 mg/dl (1.8-2.4); Potassium 3.8 mmol/L (3.5-5.1)
[2019-10-27] MEDS: METOPROLOL SUCC 50MG EXT REL TAB PO SCH (09:41)
[2019-10-27] MEDS: lisinopriL 10 MG TAB PO SCH (09:41)
[2019-10-27] MEDS: ASPIRIN 81 MG ECTAB PO SCH (09:41)
[2019-10-27] MEDS: INSULIN ASPART 100 UNITS/ML 3 ML PEN SC SCH ×4 (09:43→21:01)
[2019-10-27] MEDS ORDERED: Nursing to Pharmacy Communication ONE (10:00)
[2019-10-27] MEDS: ROSUVASTATIN CALCIUM 10 MG TAB PO SCH (10:00)
[2019-10-27] MEDS ORDERED: POTASSIUM CHLORIDE 20 MEQ TABCR PO ONE (11:46)
--- NOTE | 2019-10-27 13:30 | Surgery Progress Note ---
Date of Service October 27, 2019 Assessment & Plan (1) Partial small bowel obstruction: Patient having + bowel function, passing flatus and having BMs Currently tolerating full liquid diet He is ambulating frequently Can trial advancing to low fiber diet Dr Lo- some loose bm adv to low fiber if loose bm persist- GI eval Subjective Patient sitting up in bed having liquids for lunch, tolerating them without issue. Denies abdominal pain, nausea/vomiting. He says he is passing a lot of gas. Had a bout of loose stool this morning. Asked if he should stay away from dairy to prevent diarrhea. Physical Exam Physical Exam: awake/alert Respiratory: normal respiratory effort Gastrointestinal (Abdomen): Percussion/Palpation: abdomen soft; abdomen nontender Results & Data Vital Signs (Past 12 Hours) Vital Signs Temp Pulse Resp BP Pulse Ox 10/27/19 07:32 37 C 43 L 15 138/69 95 PG Care Time/CCT Total # of Minutes Spent Total Time Spent with Patient: Total time spent is greater than 50% in coordination of care (as documented) at patient's floor/unit and/or counseling patient: Coding Level of Care Code 23207 Subseq Hosp Care Lvl 1 Diagnoses Partial small bowel obstruction K56.600
[2019-10-27] MEDS ORDERED: ROSUVASTATIN CALCIUM 10 MG TAB PO SCH (21:00)
--- NOTE | 2019-10-27 22:28 | Hospitalist Progress Note ---
Date of Service October 27, 2019 Assessment & Plan (1) Partial small bowel obstruction: (2) Diarrhea: This is an 84-year-old male who has significant PMH of CAD with history of CABG x3, T2DM, HTN, HLD, CKD stage III, frequent PVCs, vitamin D deficiency who presents to ED secondary to emesis x1, multiple episodes of loose stool since 3 AM. Imaging reveals partial SBO with probable transition point within the right lower quadrant. Patient with leukocytosis 18,000, lactic acid 1.9, stool for C. difficile negative. Admitted to medical floor bowel rest ,IVF LR 80cc/hr initially antiemetics and supportive care pt w/o active emesis or nausea; therefore did not feel NG warranted General surgery consulted - advance diet to low fiber, senna syrup and recommend ambulation Repeat KUB - does not show obstruction Pt is passing flatus, had one small formed stool yesterday (10/26) but loose stool this AM (10/27) WBC normalized (initially 18K) Stool cltx - negative, blood cltx - negative Keep electrolytes wnl, goal K >4, and goal Mg >2 (3) CAD (coronary artery disease): hx of CABG x 3 2004 denies chest pain and sob on ASA, statin, lisinopril and metoprolol as outpt follows [facility] cardiology (4) Diabetes: A1c 7.3 on 07/20/2018 Hold metformin NovoLog per protocol (5) Hypertension: blood pressure controlled continue metoprolol and lisinopril hold triamterene/hctz (6) CKD (chronic kidney disease) stage 3, GFR 30-59 ml/min: RAFFAELE on CKD baseline cr 1.2 bun/cr 31 and 1.39 on admission likely in setting of volume contraction due to n/v mild acute renal insufficiency IV LR 80cc/hr Resolved, current Cr 0.98 (7) DVT prophylaxis: SQ Heparin Disposition: med/surg Follow up: PCP Dr. Johnston upon discharge Admission and Anticipated Discharge Date Admission Date: October 24, 2019 Subjective Patient sitting up in bed in NAD. Tolerates full liquid diet. Denies abdominal pain, nausea/vomiting. He says he is passing flatus. Had loose stool this morning. He is concerned because yesterday he actually had small formed stool. Review of Systems Review of Systems: All systems reviewed & are unremarkable except as noted in HPI & below Constitutional: no fever and no chills Respiratory: no cough and no dyspnea Cardiovascular: no chest pain, no palpitations and no edema Gastrointestinal: + diarrhea/loose stools; no abdominal pain, no nausea and no vomiting Physical Exam Physical Exam: Constitutional: WD/WN, elderly, male, NAD, lying in bed Head: Normocephalic, Atraumatic Eyes: PERRL, EOMI, conjunctivae normal, anicteric sclerae ENMT: external ear and nose normal, oropharynx normal Neck: normal visual inspection Respiratory: normal respiratory effort, lungs clear to auscultation, no wheeze, rales, rhonchi. Normal insp/exp effort, no accessory muscle use Cardiovascular: RRR, soft 1/6 MAGGY noted RUSB, no edema Vessels: no JVD or carotid bruit Chest: normal inspection of chest , sternal scar noted abdomen: abdomen soft,only mildly distended, bowel sounds present, nontender Musculoskeletal: no cyanosis or clubbing, extremities motor strength 5/5, moves extremities spontaneously, ambulates w/o difficulty Skin: no rashes, warm and dry normal turgor Neurologic: PERRL, EOMI, accommodation nl, no face palsy, no dysarthria CN's II-XI intact bilaterally and moves all extremities Psychiatric: A+Ox3, euthymic affect Results & Data ([facility]) Laboratory Results 10/27/19 10/27/19 10/27/19 Range/Units 20:53 17:27 12:07 WBC (4.8-10.8) K/uL RBC (4.7-6.1) M/uL Hgb (14.0-18.0) g/dL Hct (42-52) % MCV (80-100) fL MCH (25-34) pg MCHC (32-36) g/dL RDW Std Deviation (36.4-46.3) fL RDW Coeff of Mague (11.5-14.5) % Plt Count (130-400) K/uL MPV (7.4-10.4) fL Platelet Estimate (Normal) Sodium (136-145) mmol/L Potassium (3.5-5.1) mmol/L Chloride (98-107) mmol/L Carbon Dioxide (21-32) mmol/L Anion Gap (3-11) BUN (7-18) mg/dl Creatinine (0.6-1.4) mg/dl Est Cr Clr Drug Dosing ml/min Est GFR ( Amer) Est GFR (Non-Af Amer) BUN/Creatinine Ratio (10-20) Glucose (70-99) mg/dl POC Glucose 103 H 77 171 H (70-99) mg/dl Calcium (8.5-10.1) mg/dl Magnesium (1.8-2.4) mg/dl 10/27/19 10/27/19 10/27/19 Range/Units 08:48 05:18 05:18 WBC 6.27 (4.8-10.8) K/uL RBC 3.94 L (4.7-6.1) M/uL Hgb 12.8 L (14.0-18.0) g/dL Hct 39.7 L (42-52) % MCV 100.8 H (80-100) fL MCH 32.5 (25-34) pg MCHC 32.2 (32-36) g/dL RDW Std Deviation 58.1 H (36.4-46.3) fL RDW Coeff of Mague 15.7 H (11.5-14.5) % Plt Count 106 L (130-400) K/uL MPV 12.0 H (7.4-10.4) fL Platelet Estimate Decreased L (Normal) Sodium 143 (136-145) mmol/L Potassium 3.8 (3.5-5.1) mmol/L Chloride 113 H (98-107) mmol/L Carbon Dioxide 26 (21-32) mmol/L Anion Gap 4.0 (3-11) BUN 9 D (7-18) mg/dl Creatinine 0.98 (0.6-1.4) mg/dl Est Cr Clr Drug Dosing 47.0 ml/min Est GFR ( Amer) 81.7 Est GFR (Non-Af Amer) 70.5 BUN/Creatinine Ratio 9.7 L (10-20) Glucose 83 (70-99) mg/dl POC Glucose 99 (70-99) mg/dl Calcium 8.1 L (8.5-10.1) mg/dl Magnesium 2.1 (1.8-2.4) mg/dl Medications Administered Current Inpatient Medications Acetaminophen (Tylenol) 650 mg PO Q4H PRN PRN Reason: pain/fever Stop: 11/23/19 13:38 Al Hydrox/Mg Hydrox/Simethicone (Maalox) 30 ml PO Q6H PRN PRN Reason: Dyspepsia Stop: 11/23/19 13:38 Aspirin (Ecotrin Ectab) 81 mg PO DAILY [facility] Stop: 11/24/19 08:59 Last Admin: 10/27/19 09:41 Dose: 81 mg Documented by: Dextrose (Dextrose 50%) 25 - 50 ml IV UD PRN; Protocol PRN Reason: Hypoglycemia Protocol Stop: 11/23/19 13:38 Glucagon (Glucagen) 1 mg SQ UD PRN; Protocol PRN Reason: Hypoglycemia Protocol Stop: 11/23/19 13:38 Glucose (Dex4 Glucose) 4 - 8 tabs PO UD PRN; Protocol PRN Reason: Hypoglycemia Protocol Stop: 11/23/19 13:38 Glucose (Glucose 40%) 15 - 30 gm PO UD PRN; Protocol PRN Reason: Hypoglycemia Protocol Stop: 11/23/19 13:38 Heparin Sodium (Porcine) (Heparin Sodium (Porcine)) 5,000 units SQ Q8 [facility] Stop: 11/23/19 13:59 Last Admin: 10/27/19 21:02 Dose: 5,000 units Documented by: Lactated Ringer's (Lr) 1,000 mls @ 80 mls/hr IV .[id number] [facility] Stop: 11/23/19 13:38 Last Infusion: 10/27/19 14:48 Dose: 80 mls/hr Documented by: Insulin Aspart (Novolog Flexpen) 0 units SC ACHS [facility] Stop: 11/24/19 11:29 Last Admin: 10/27/19 21:01 Dose: Not Given Documented by: Lisinopril (Zestril) 10 mg PO DAILY [facility] Stop: 11/24/19 08:59 Last Admin: 10/27/19 09:41 Dose: Not Given Documented by: Metoprolol Succinate (Toprol Xl) 100 mg PO DAILY [facility] Stop: 11/24/19 08:59 Last Admin: 10/27/19 09:41 Dose: Not Given Documented by: Miscellaneous (Carbohydrates For Hypoglycemia) 15 - 30 gm PO UD PRN PRN Reason: Hypoglycemia Protocol Stop: 11/23/19 13:38 Ondansetron HCl (Zofran) 4 mg IV Q6H PRN PRN Reason: Nausea Stop: 11/23/19 13:38 Rosuvastatin Calcium (Crestor) 10 mg PO DAILY@2100 [facility] Stop: 11/24/19 08:59 Last Admin: 10/27/19 20:49 Dose: 10 mg Documented by: Sennosides (Senokot) 8.8 mg PO BID PRN PRN Reason: Constipation Stop: 11/25/19 06:46 (1) Diarrhea Diarrhea type: unspecified type Qualified Code(s): R19.7 - Diarrhea, unspecified
[2019-10-28] MEDS: LACTATED RINGER'S 1,000 ML IV SCH (02:19)
[2019-10-28] MEDS: HEPARIN SOD 5,000 UNIT/0.5 ML VIAL SQ SCH ×2 (06:02→13:04)
[2019-10-28 07:31] LABS: Hematocrit (blood only) 39.7 % (42-52); Hemoglobin 12.9 g/dL (14.0-18.0); Mean Corpuscular Hemoglobin 32.7 pg (25-34); Mean Corpuscular Hgb Conc 32.5 g/dL (32-36); Mean Corpuscular Volume 100.8 fL (80-100); Mean Platelet Volume 12.6 fL (7.4-10.4); Platelet Count 115 K/uL (130-400); RDW Coefficient of Variation 15.7 % (11.5-14.5); RDW Standard Deviation 57.5 fL (36.4-46.3); Red Blood Count 3.94 M/uL (4.7-6.1); White Blood Count 6.27 K/uL (4.8-10.8)
[2019-10-28 07:53] LABS: BUN Creatinine Ratio 8.5 (10-20); Est GFR (African American) 83.8; Est GFR (Non-African American) 72.3; Magnesium 1.9 mg/dl (1.8-2.4); Phosphorus 2.6 mg/dl (2.5-4.9); Potassium 3.8 mmol/L (3.5-5.1)
[2019-10-28] MEDS: ASPIRIN 81 MG ECTAB PO SCH (09:10)
[2019-10-28] MEDS: METOPROLOL SUCC 50MG EXT REL TAB PO SCH (09:10)
[2019-10-28] MEDS: lisinopriL 10 MG TAB PO SCH (09:11)
--- NOTE | 2019-10-28 09:14 | Hospitalist Progress Note ---
Date of Service October 28, 2019 Assessment & Plan (1) Partial small bowel obstruction: (2) Diarrhea: This is an 84-year-old male who has significant PMH of CAD with history of CABG x3, T2DM, HTN, HLD, CKD stage III, frequent PVCs, vitamin D deficiency who presents to ED secondary to emesis x1, multiple episodes of loose stool since 3 AM. Imaging reveals partial SBO with probable transition point within the right lower quadrant. Patient with leukocytosis 18,000, lactic acid 1.9, stool for C. difficile negative. Admitted to medical floor bowel rest , IVF LR 80cc/hr initially antiemetics and supportive care pt w/o active emesis or nausea; therefore did not feel NG warranted Stool cltx - negative, blood cltx - negative Keep electrolytes wnl, goal K >4, and goal Mg >2 General surgery consulted - advanced diet to low fiber yesterday AM, senna syrup prn and recommend ambulation Repeat KUB - does not show obstruction Pt tolerates low fiber diet, no abd. pain, nausea or vomiting Pt is passing flatus,had formed brown stool last evening and this AM WBC normalized (initially 18K) (3) CAD (coronary artery disease): hx of CABG x 3 2004 denies chest pain and sob on ASA, statin, lisinopril and metoprolol as outpt follows [facility] cardiology (4) Diabetes: A1c 7.3 on 07/20/2018 Hold metformin NovoLog per protocol (5) Hypertension: blood pressure controlled continue metoprolol and lisinopril hold triamterene/hctz, can resume on discharge (6) CKD (chronic kidney disease) stage 3, GFR 30-59 ml/min: RAFFAELE on CKD baseline cr 1.2 bun/cr 31 and 1.39 on admission likely in setting of volume contraction due to n/v mild acute renal insufficiency IV LR 80cc/hr Resolved, current Cr 0.96 (7) DVT prophylaxis: SQ Heparin Follow up: PCP Dr. Johnston upon discharge Admission and Anticipated Discharge Date Admission Date: October 24, 2019 Subjective Pt is lying in bed in NAD. Tolerating low fiber diet. He had a formed brown stool yesterday evening and this morning. Feeling well and inquiring about going home. Denies any abd. pain, nausea or vomiting. Review of Systems Review of Systems: All systems reviewed & are unremarkable except as noted in HPI & below Constitutional: no fever and no chills Respiratory: no cough and no dyspnea Cardiovascular: no chest pain, no dyspnea on exertion and no palpitations Gastrointestinal: no abdominal pain, no nausea, no vomiting, no diarrhea/loose stools and no blood in stools Physical Exam Physical Exam: Constitutional: WD/WN, elderly, male, in NAD, lying in bed Head: Normocephalic, Atraumatic Eyes: PERRL, EOMI, conjunctivae normal, anicteric sclerae ENMT: external ear and nose normal, oropharynx normal Neck: normal visual inspection Respiratory: normal respiratory effort, lungs clear to auscultation, no wheeze, rales, rhonchi. Normal insp/exp effort, no accessory muscle use Cardiovascular: RRR, soft 1/6 MAGGY noted RUSB, no edema Vessels: no JVD or carotid bruit Chest: normal inspection of chest , sternal scar noted abdomen: abdomen soft,only mildly distended, bowel sounds present, nontender Musculoskeletal: no cyanosis or clubbing, extremities motor strength 5/5, moves extremities spontaneously, ambulates w/o difficulty Skin: no rashes, warm and dry, normal turgor Neurologic: PERRL, EOMI, accommodation nl, no face palsy, no dysarthria CN's II-XI intact bilaterally and moves all extremities Psychiatric: A+Ox3, euthymic affect Results & Data ([facility]) Vital Signs (Past 12 Hours) Vital Signs Temp Pulse Pulse Resp BP Pulse Ox 10/28/19 08:00 36.9 C 55 L 16 141/71 H 94 10/27/19 23:49 36.6 C 49 L 16 136/80 97 Laboratory Results 10/28/19 10/28/19 10/28/19 Range/Units 08:35 06:49 06:49 WBC 6.27 (4.8-10.8) K/uL RBC 3.94 L (4.7-6.1) M/uL Hgb 12.9 L (14.0-18.0) g/dL Hct 39.7 L (42-52) % MCV 100.8 H (80-100) fL MCH 32.7 (25-34) pg MCHC 32.5 (32-36) g/dL RDW Std Deviation 57.5 H (36.4-46.3) fL RDW Coeff of Mague 15.7 H (11.5-14.5) % Plt Count 115 L (130-400) K/uL MPV 12.6 H (7.4-10.4) fL Sodium 143 (136-145) mmol/L Potassium 3.8 (3.5-5.1) mmol/L Chloride 111 H (98-107) mmol/L Carbon Dioxide 27 (21-32) mmol/L Anion Gap 5.0 (3-11) BUN 8 (7-18) mg/dl Creatinine 0.96 (0.6-1.4) mg/dl Est Cr Clr Drug Dosing 48.0 ml/min Est GFR ( Amer) 83.8 Est GFR (Non-Af Amer) 72.3 BUN/Creatinine Ratio 8.5 L (10-20) Glucose 100 H (70-99) mg/dl POC Glucose 98 (70-99) mg/dl Calcium 8.0 L (8.5-10.1) mg/dl Phosphorus 2.6 (2.5-4.9) mg/dl Magnesium 1.9 (1.8-2.4) mg/dl 10/27/19 10/27/19 10/27/19 Range/Units 20:53 17:27 12:07 WBC (4.8-10.8) K/uL RBC (4.7-6.1) M/uL Hgb (14.0-18.0) g/dL Hct (42-52) % MCV (80-100) fL MCH (25-34) pg MCHC (32-36) g/dL RDW Std Deviation (36.4-46.3) fL RDW Coeff of Mague (11.5-14.5) % Plt Count (130-400) K/uL MPV (7.4-10.4) fL Sodium (136-145) mmol/L Potassium (3.5-5.1) mmol/L Chloride (98-107) mmol/L Carbon Dioxide (21-32) mmol/L Anion Gap (3-11) BUN (7-18) mg/dl Creatinine (0.6-1.4) mg/dl Est Cr Clr Drug Dosing ml/min Est GFR ( Amer) Est GFR (Non-Af Amer) BUN/Creatinine Ratio (10-20) Glucose (70-99) mg/dl POC Glucose 103 H 77 171 H (70-99) mg/dl Calcium (8.5-10.1) mg/dl Phosphorus (2.5-4.9) mg/dl Magnesium (1.8-2.4) mg/dl Medications Administered Current Inpatient Medications Acetaminophen (Tylenol) 650 mg PO Q4H PRN PRN Reason: pain/fever Stop: 11/23/19 13:38 Al Hydrox/Mg Hydrox/Simethicone (Maalox) 30 ml PO Q6H PRN PRN Reason: Dyspepsia Stop: 11/23/19 13:38 Aspirin (Ecotrin Ectab) 81 mg PO DAILY [facility] Stop: 11/24/19 08:59 Last Admin: 10/28/19 09:10 Dose: 81 mg Documented by: Dextrose (Dextrose 50%) 25 - 50 ml IV UD PRN; Protocol PRN Reason: Hypoglycemia Protocol Stop: 11/23/19 13:38 Glucagon (Glucagen) 1 mg SQ UD PRN; Protocol PRN Reason: Hypoglycemia Protocol Stop: 11/23/19 13:38 Glucose (Dex4 Glucose) 4 - 8 tabs PO UD PRN; Protocol PRN Reason: Hypoglycemia Protocol Stop: 11/23/19 13:38 Glucose (Glucose 40%) 15 - 30 gm PO UD PRN; Protocol PRN Reason: Hypoglycemia Protocol Stop: 11/23/19 13:38 Heparin Sodium (Porcine) (Heparin Sodium (Porcine)) 5,000 units SQ Q8 [facility] Stop: 11/23/19 13:59 Last Admin: 10/28/19 06:02 Dose: 5,000 units Documented by: Lactated Ringer's (Lr) 1,000 mls @ 80 mls/hr IV .[id number] [facility] Stop: 11/23/19 13:38 Last Admin: 10/28/19 02:19 Dose: 80 mls/hr Documented by: Insulin Aspart (Novolog Flexpen) 0 units SC ACHS [facility] Stop: 11/24/19 11:29 Last Admin: 10/27/19 21:01 Dose: Not Given Documented by: Lisinopril (Zestril) 10 mg PO DAILY [facility] Stop: 11/24/19 08:59 Last Admin: 10/28/19 09:11 Dose: 10 mg Documented by: Metoprolol Succinate (Toprol Xl) 100 mg PO DAILY [facility] Stop: 11/24/19 08:59 Last Admin: 10/28/19 09:10 Dose: Not Given Documented by: Miscellaneous (Carbohydrates For Hypoglycemia) 15 - 30 gm PO UD PRN PRN Reason: Hypoglycemia Protocol Stop: 11/23/19 13:38 Ondansetron HCl (Zofran) 4 mg IV Q6H PRN PRN Reason: Nausea Stop: 11/23/19 13:38 Potassium Chloride (Klor-Con M20) 20 meq PO NOW STA Stop: 10/28/19 09:12 Rosuvastatin Calcium (Crestor) 10 mg PO DAILY@2100 [facility] Stop: 11/24/19 08:59 Last Admin: 10/27/19 20:49 Dose: 10 mg Documented by: Sennosides (Senokot) 8.8 mg PO BID PRN PRN Reason: Constipation Stop: 11/25/19 06:46 (1) Diarrhea Diarrhea type: unspecified type Qualified Code(s): R19.7 - Diarrhea, unspecified
--- NOTE | 2019-10-28 09:31 | Surgery Progress Note ---
Date of Service October 28, 2019 Assessment & Plan (1) Partial small bowel obstruction: Partial bowel obstruction resolved Tolerating regular diet Okay for discharge from surgical standpoint Subjective Patient is moving bowels and passing flatus Denies abdominal pain Tolerating low fiber diet Physical Exam Gastrointestinal (Abdomen): Inspection/Auscultation: normal bowel sounds; abdomen not distended Percussion/Palpation: abdomen soft; abdomen nontender Results & Data Vital Signs (Past 12 Hours) Vital Signs Temp Pulse Pulse Resp BP Pulse Ox 10/28/19 08:00 36.9 C 55 L 16 141/71 H 94 10/27/19 23:49 36.6 C 49 L 16 136/80 97
[2019-10-28] MEDS ORDERED: POTASSIUM CHLORIDE 20 MEQ TABCR PO ONE (09:45)
[2019-10-28] MEDS: INSULIN ASPART 100 UNITS/ML 3 ML PEN SC SCH ×2 (10:37→13:03)
--- NOTE | 2019-10-28 13:23 | Discharge Summary ---
Date of Service October 28, 2019 Admission HPI Per Admitting Provider This is an 84-year-old male who has significant PMH of CAD with history of CABG x3, T2DM, HTN, HLD, CKD stage III, frequent PVCs, vitamin D deficiency who presents to ED secondary to emesis x1, multiple episodes of loose stool since 3 AM. He woke up at approximately 3 AM and had episode of emesis. He also had 3- 4 episodes of very loose bowel and diffuse abdominal cramping. After he was seated on the toilet and had a bowel movement he went to get up. After getting up he felt very diaphoretic, lightheaded and dizzy and, "blacked out." He recalls events prior to and after passing out. He denies hitting his head and states he fell on the carpet on his hands. He denies any injury from the fall. He does admit to presyncopal symptoms. He further relates this to having approximately 2 to 3 days of abdominal distention, bloating and frequent flatus. He denies any recent illness but states he was in the ED yesterday with his son who developed an acute onset of nausea, emesis and diarrhea. He was told he had a GI gastroenteritis was treated conservatively and discharged home. He thought possibly he had similar symptoms. He currently lives at home with his son and his . His is currently hospitalized at [facility] and is being discharged today. He denies any fever, chills, sweats, current lightheadedness or dizziness, headache, change in vision, chest pain, shortness breath, palpitations, cough, hemoptysis, melena, hematochezia, dysuria or change in urinary habits. He continues to have nausea but denies any further emesis, abdominal pain. He did move his bowels while in ED and were more formed than this morning. In ED he remained hemodynamically stable and afebrile. Lab work revealed leukocytosis 18 K with predominant neutrophilia, BUN 31, creatinine 1.39, lactate 1.9, procalcitonin WNL Urinalysis WNL, stool for C. difficile positive C. difficile change but negative C. difficile toxin. Influenza negative. CT abdomen pelvis revealed mildly dilated fluid-filled proximal to mid small bowel with probable transition point in the right lower quadrant. Fevers multiple bowel obstruction. Extensive colonic diverticulosis without acute diverticulitis. He received IVF and antiemetics. Admission Exam Per Admitting Provider Constitutional: WD/WN, elderly, male, vitals as above, NAD, sitting up in bed, pleasant, conversing easily Head: Normocephalic, Atraumatic Eyes: PERRL, conjunctivae normal, anicteric sclerae ENMT: external ear and nose normal, oropharynx normal Neck: trachea midline, no thyromegaly normal visual inspection Respiratory: normal respiratory effort, lungs clear to auscultation, no wheeze, rales, rhonchi. Normal insp/exp effort, no accessory muscle use Cardiovascular: RRR, soft 1/6 MAGGY noted RUSB, no edema Vessels: no JVD or carotid bruit Chest: normal inspection of chest , sternal scar noted, abdomen: Distended abdomen, bowel sounds are all 4 quadrants high-pitched, tympanic to percussion, soft, nontender, no hepatosplenomegaly Musculoskeletal: no cyanosis or clubbing, extremities motor strength 5/5 Skin: no rashes, warm and dry normal turgor Neurologic: PERRL, EOMI, accommodation nl, no face palsy, no dysarthria CN's II-XI intact bilaterally and moves all extremities Psychiatric: A+Ox3, euthymic affect Lymphatic: no cervical or axillary lymphadenopathy : deferred Principal Diagnosis Partial small bowel obstruction Discharge Exam Constitutional: WD/WN, elderly, male, in NAD, lying in bed Head: Normocephalic, Atraumatic Eyes: PERRL, EOMI, conjunctivae normal, anicteric sclerae ENMT: external ear and nose normal, oropharynx normal Neck: normal visual inspection Respiratory: normal respiratory effort, lungs clear to auscultation, no wheeze, rales, rhonchi. Normal insp/exp effort, no accessory muscle use Cardiovascular: RRR, soft 1/6 MAGGY noted RUSB, no edema Vessels: no JVD or carotid bruit Chest: normal inspection of chest , sternal scar noted abdomen: abdomen soft,only mildly distended, bowel sounds present, nontender Musculoskeletal: no cyanosis or clubbing, extremities motor strength 5/5, moves extremities spontaneously, ambulates w/o difficulty Skin: no rashes, warm and dry, normal turgor Neurologic: PERRL, EOMI, accommodation nl, no face palsy, no dysarthria CN's II-XI intact bilaterally and moves all extremities Psychiatric: A+Ox3, euthymic affect Discharge Data Allergies Allergy/AdvReac Type Severity Reaction Status Date / Time nitrofurantoin Allergy Unknown Unknown Verified 10/24/19 06:35 Penicillins Allergy Unknown Unknown Verified 10/24/19 06:35 Sulfa (Sulfonamide Allergy Unknown Unknown Verified 10/24/19 06:35 Antibiotics) sulfamethoxazole Allergy Unknown Unknown Verified 10/24/19 06:35 trimethoprim Allergy Unknown Unknown Verified 10/24/19 06:35 Consultations 10/24/19 11:30 ED Decision to Admit Stat 10/24/19 13:39 Consult Case Management - Discharge Planning Routine Consult General Surgery Routine Ordered Studies 10/24/19 10:11 CT abd pelvis IV con only Stat IMPRESSION: 1. Mildly dilated fluid-filled proximal to mid small bowel with probable transition point within the right lower quadrant. The appearance favors a partial small bowel obstruction. An ileus could appear similar but is considered less likely. 2. Extensive colonic diverticulosis without evidence for acute diverticulitis. 3. Left-sided nephrolithiasis. 4. Cholelithiasis. Hospital Course (1) Partial small bowel obstruction: (2) Diarrhea: This is an 84-year-old male who has significant PMH of CAD with history of CABG x3, T2DM, HTN, HLD, CKD stage III, frequent PVCs, vitamin D deficiency who presents to ED secondary to emesis x1, multiple episodes of loose stool since 3 AM. Imaging reveals partial SBO with probable transition point within the right lower quadrant. Patient with leukocytosis 18,000, lactic acid 1.9, stool for C. difficile negative. Admitted to medical floor bowel rest , IVF LR 80cc/hr initially antiemetics and supportive care pt w/o active emesis or nausea; therefore did not feel NG warranted Stool cltx - negative, blood cltx - negative Keep electrolytes wnl, goal K >4, and goal Mg >2 General surgery consulted - advanced diet to low fiber yesterday AM, senna syrup prn and recommend ambulation Repeat KUB - does not show obstruction WBC normalized (initially 18K) Pt tolerates low fiber diet, no abd. pain, nausea or vomiting Pt is passing flatus,had formed brown stool last evening and this AM (3) CAD (coronary artery disease): hx of CABG x 3 2004 no acute issues, denies chest pain and sob on ASA, statin, lisinopril and metoprolol as outpt follows [facility] cardiology (4) Diabetes: A1c 7.3 on 07/20/2018 Hold metformin NovoLog per protocol (5) Hypertension: blood pressure controlled continue metoprolol and lisinopril hold triamterene/hctz, can resume on discharge (6) CKD (chronic kidney disease) stage 3, GFR 30-59 ml/min: RAFFAELE on CKD baseline cr 1.2 bun/cr 31 and 1.39 on admission likely in setting of volume contraction due to n/v mild acute renal insufficiency IV LR 80cc/hr Resolved, current Cr 0.96 (7) DVT prophylaxis: SQ Heparin Follow up: PCP Dr. Johnston upon discharge Total Time Total Time Spent Total Time Spent (In Minutes): 40 Total Time Includes: Examination of the Patient, Discharge Planning, Medication Reconciliation and Communication With Other Providers Discharge Plan Discharge Items Patient Disposition: Home - Self-Care Reason For Visit: PARTIAL SBO Discharge Diagnosis: Partial small bowel obstruction Activity: Resume your previous activity Activity Comment: as tolerated Non-emergency contact: Primary Care Provider Call non-emergency contact if: you have any medication questions and your symptoms worsen Follow-up/Referrals: Donnie Johnston MD [Primary Care Provider] - 11/01/19 10:45 am (If you need to change this appointment, please call [phone].) Diet: Low Fiber Diet Comment: Low fiber / low residue diet for next couple of days then regular diet Addtl Attending Provider Instructions: Follow up with your primary care doctor on 11/01. Follow low residue/ low fiber diet for next couple of days, then advance to regular diet. Pending Studies at Discharge: No Stand-Alone Forms: [employer], Smoking Cessation Medications and DC Order Prescriptions: Continued multivitamin [Multiple Vitamins] Tablet 1 tab PO DAILY RF: 0 metoprolol succinate 100 mg tablet extended release 24 hr 100 mg PO DAILY RF: 0 aspirin 81 mg Tablet,Delayed Release (Dr/Ec) 81 mg PO DAILY RF: 0 triamterene-hydrochlorothiazid 37.5-25 mg capsule 1 cap PO DAILY RF: 0 lisinopril 10 mg tablet 10 mg PO DAILY RF: 0 metformin 500 mg tablet extended release 24 hr 500 mg PO BIDM RF: 0 rosuvastatin 10 mg tablet 10 mg PO DAILY RF: 0 cholecalciferol (vitamin D3) [Vitamin D3] 25 mcg (1,000 unit) Tablet 1,000 unit PO DAILY RF: 0 Glucosamine Chondroitin 550-30-1 mg Capsule 1 cap PO DAILY RF: 0 Discharge Orders: Discharge Order (Routine); Ordered 10/28/19 Ordered By: Juan Jose Abraham/Other Patient Handouts: Diet Low Residue, DVT Prevent Admission Data Admit Date/Time: 10/24/19 12:04 Attending Provider: Juan Jose Galindo Admit Provider: Rhiannon De León Primary Care Provider: Donnie Johnston Other Providers: Rhiannon De León ; Leonel Lo
== END 2019-10-28 14:29 | disposition home or self-care (01) | DRG 390 ==
LOC: ED 06:04 → 3N 12:04 → SUATTDRO 12:04 → 3N 13:21

== ENCOUNTER 2023-11-02 07:01 | Observation (INO) ==
--- NOTE | 2023-09-30 15:35 | PAT Medication Instructions ---
Medication Instructions Date of Service September 30, 2023 Home Medications Medication Instructions Recorded hydrocodone 5 mg-acetaminophen 325 1 tab PO Q6H PRN pain #14 tabs 12/09/ mg tablet aspirin 81 mg tablet,delayed release 81 mg PO QAM cholecalciferol (vitamin D3) 25 mcg (1,000 unit) tablet (Vitamin D3) 1,000 unit PO QAM lisinopril 10 mg tablet 10 mg PO QAM metformin 500 mg tablet,extended release 24 hr 500 mg PO BID metoprolol succinate 100 mg tablet,extended release 24 hr 100 mg PO QAM multivitamin (Multiple Vitamins tablet) 1 tab PO QPM rosuvastatin 10 mg tablet 10 mg PO HS triamterene 37.5 mg-hydrochlorothiazide 25 mg capsule 1 cap PO HS hydrocodone 5 mg-acetaminophen 325 mg tablet 1 tab PO Q6H PRN Bifidobacterium infantis 4 mg capsule (Align) 4 mg PO QPM Dupixent Pen 1 dose INJ Q14D cyclosporine 0.05 % eye drops in a dropperette (Restasis) 1 drp ophthalmic (eye) BID docusate sodium 100 mg capsule (Stool Softener) 200 mg PO QPM ASK your prescriber and surgeon Dupixent Pen 1 dose INJ Q14D aspirin 81 mg tablet,delayed release 81 mg PO QAM DO NOT take the morning of surgery cholecalciferol (vitamin D3) 25 mcg (1,000 unit) tablet (Vitamin D3) 1,000 unit PO QAM lisinopril 10 mg tablet 10 mg PO QAM metformin 500 mg tablet,extended release 24 hr 500 mg PO BID Take morning of surgery With a small sip of water, OTHERWISE NOTHING TO EAT OR DRINK AFTER MIDNIGHT: metoprolol succinate 100 mg tablet,extended release 24 hr 100 mg PO QAM hydrocodone 5 mg-acetaminophen 325 mg tablet 1 tab PO Q6H PRN(if needed) cyclosporine 0.05 % eye drops in a dropperette (Restasis) 1 drp ophthalmic (eye) BID Take evening before surgery metformin 500 mg tablet,extended release 24 hr 500 mg PO BID multivitamin (Multiple Vitamins tablet) 1 tab PO QPM rosuvastatin 10 mg tablet 10 mg PO HS triamterene 37.5 mg-hydrochlorothiazide 25 mg capsule 1 cap PO HS Bifidobacterium infantis 4 mg capsule (Align) 4 mg PO QPM cyclosporine 0.05 % eye drops in a dropperette (Restasis) 1 drp ophthalmic (eye) BID docusate sodium 100 mg capsule (Stool Softener) 200 mg PO QPM hydrocodone 5 mg-acetaminophen 325 mg tablet 1 tab PO Q6H PRN(if needed) Other Notes If you have any questions please call us at [phone] or [phone] or [phone] or [phone]
--- NOTE | 2023-10-07 09:23 | Anesthesiology Consultation ---
Date of Service October 07, 2023 Assessment & Plan (1) Encounter for pre-operative examination: Chart Review Chart Review: Acceptable Risk for Surgery (pending routine PCP visit 10/11/23) and Patient seen in Pre Admission Testing - Awaiting routine PCP visit scheduled 10/11/23 - Check BSG AM DOS - Due to age and cardiac history- patient is NOT an ideal OPJ candidate (currently 23 hour obs) Per PAT appt on 10/07/23, no recent illness/disease exposures, illness related symptoms, or recent illness/disease positive tests. Will leave to surgeon's discretion if preop Covid testing needed Patient seen by cardio 02/11/23= seen for routine cardio follow up. From cardiac perspective he notes he is doing relatively well. Having ongoing back pain- following with pain management. Rash resolved from injections in knees. Activity somewhat limited by orthopedic pain. Had negative exercise stress ECHO 2016. Stable cardiac signs and symptoms. Continue current medications. Follow up in one year Teaching & Discussion Pre-Anesthesia Teaching/Discussion Notes: Instructed NPO after midnight before surgery,except medications with 15 cc of water. Medication instructions provided according to the PAT guidelines. History Surgery Operation Date: 11/02/23 12:30 Proposed Procedures p Right Total Knee Arthroplasty - Rohith Bob MD Height/Weight Height: 5 ft 5 in Weight: 72.1 kg Allergies Allergy/AdvReac Type Severity Reaction Status Date / Time nitrofurantoin Allergy Unknown Hives Verified 09/30/23 12:20 Penicillins Allergy Unknown Hives Verified 09/30/23 12:20 Sulfa (Sulfonamide Allergy Unknown Hives Verified 09/30/23 12:20 Antibiotics) sulfamethoxazole Allergy Unknown Hives Verified 09/30/23 12:20 trimethoprim Allergy Unknown Hives Verified 09/30/23 12:20 Medications Home Medications Medication Instructions Recorded Confirmed Last Taken aspirin 81 mg tablet,delayed 81 mg PO QAM 10/24/19 09/30/23 Unknown release cholecalciferol (vitamin D3) 25 1,000 unit PO QAM 10/24/19 09/30/23 Unknown mcg (1,000 unit) tablet (Vitamin D3) lisinopril 10 mg tablet 10 mg PO QAM 10/24/19 09/30/23 Unknown metformin 500 mg tablet,extended 500 mg PO BID 10/24/19 09/30/23 Unknown release 24 hr metoprolol succinate 100 mg 100 mg PO QAM 10/24/19 09/30/23 Unknown tablet,extended release 24 hr multivitamin (Multiple Vitamins 1 tab PO QPM 10/24/19 09/30/23 Unknown tablet) rosuvastatin 10 mg tablet 10 mg PO HS 10/24/19 09/30/23 Unknown triamterene 37.5 1 cap PO HS 10/24/19 09/30/23 Unknown mg-hydrochlorothiazide 25 mg capsule hydrocodone 5 mg-acetaminophen 325 1 tab PO Q6H PRN pain #14 tabs 12/09/22 09/30/23 Unknown mg tablet Bifidobacterium infantis 4 mg 4 mg PO QPM 09/30/23 09/30/23 Unknown capsule (Align) Dupixent Pen 1 dose INJ Q14D 09/30/23 09/30/23 Unknown cyclosporine 0.05 % eye drops in a 1 drp ophthalmic (eye) BID 09/30/23 09/30/23 Unknown dropperette (Restasis) docusate sodium 100 mg capsule 200 mg PO QPM 09/30/23 09/30/23 Unknown (Stool Softener) Past Medical History Medical History CAD (coronary artery disease) s/p 3 vessel CABG 2004 CKD (chronic kidney disease) stage 3, GFR 30-59 ml/min Diabetes Glucose stable per patient 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 cordero, [facility] History of COVID-2021, PCP test, not hosp; "bad" sinus infection>resolved summer 2022, PCP test, not hosp; "bad" sinus infection>resolved HLD (hyperlipidemia) Hx of drug rash Per patient- follows with dermatology- said rash he is being treated for stems from initial injections in his knees, 09/2022>currently using dupixent injections- rash improving (no current rash to knees at this at point- surgeon aware) Hx of myocardial infarction "silent" 2004>CABG x3 Hypertension Exercise / Class Metabolic Activity II 4-5 Yardwork/Stairs/Walk up hill (one flight of stairs - no chest pain or SOB ) Past Family History Family History Mother , 72 No problems noted. Father Cancer, Onset Age: 78 MDS Brother , 39 Sudden Past Surgical History Surgical History History of arthroscopic knee surgery rt. History of cataract extraction rt/lt History of colonoscopy with polypectomy Last 03/20/2015 adenomatous polyp History of detached retina repair rt. History of hernia repair Bilateral Hx of CABG heart attack (silent); x 3 BARRAZA to LAD, SVG to diagonal and obtuse 2004, [facility]; f/u dr. cordero, [facility] Hx of cardiac cath 2004, following "silent" heart attack, no stents>triple CABG, [facility] Hx of cystoscopy Past Anesthesia History No Hx of Anesthesia Complications and No Family Hx of Anesthesia Complications History of PONV No Hx of PONV and No Hx of Motion Sickness Social History Smoking Status: Former smoker tobacco type: smokeless tobacco Do You Dip or Chew Tobacco: No (quit 2004; advised) Smoking End Date: smoked pipe over 60 years ago Hx Alcohol Use: Yes Alcohol type: beer alcohol intake frequency: holidays/special occasions only Hx Substance Use: No substance use type: does not use Review of Systems Patient denies chest pain, shortness of breath, dyspnea on exertion, reflux, cough, wheezing, palpitations. No hx of seizures, stroke, apnea/snoring. No hx of blood clots or blood transfusions Physical Exam VITALS BP 153/75 P 69 TEMP 97.7 SP02 95% RESP 16 Constitutional no acute distress ENMT Mouth: no TMJ clicking Thyromental Distance: < 3.5 Finger Breadths (3.0) Mallampati Class: II Neck + limited neck extension (minimal) Respiratory normal respiratory effort; no respiratory distress Auscultation: lungs clear to auscultation bilaterally; no wheezes Cardiovascular Rate/Rhythm: regular rate and regular rhythm Heart Sounds: no murmur Vessels: no carotid bruit Extra beat occ Musculoskeletal Spine: no pain with cervical ROM Extremities: extremities normal to inspection Psychiatric Orientation: alert Lab Results Anesthesia Preop Results Results Anesthesia Widget: WBC 9.62 K/ul (4.8-10.8) 10/07/23 Hgb 15.0 g/dl (14.0-18.0) 10/07/23 Hct 46.3 % (42.0-52.0) 10/07/23 Plt 199 K/uL (130-400) 10/07/23 Na 135 mmol/L (136-145) L 10/07/23 K 4.1 mmol/L (3.5-5.1) 10/07/23 Cl 102 mmol/L (98-107) 10/07/23 CO2 25 mmol/L (21-32) 10/07/23 BUN 29 mg/dl (6-23) H 10/07/23 Creat 1.16 mg/dl (0.6-1.4) 10/07/23 Glucose Level 141 mg/dl (70-99(Fasting)) H 10/07/23 PT 11.4 Seconds (9.0-12.0) 10/07/23 PTT 30 Seconds (21-31) 10/07/23 INR 1.0 (0.9-1.1) 10/07/23 HA1c 7.1 % (4.5-5.6) H 10/07/23 Blood Type O Positive 10/07/23 Antibody Screen NEGATIVE 10/07/23 Testing Electrocardiogram Date: 10/07/23 SR with 1st degree AVB at 63bpm Otherwise normal EKG per cardio Chest X-Ray Date: 10/07/23 Findings: + NAD FINDINGS: Cardiac silhouette is upper limits of normal in size. Median sternotomy. Eventration of the right hemidiaphragm. No pneumothorax, pleural effusion or airspace consolidation. Degenerative changes of the shoulders and spine.
--- NOTE | 2023-10-30 10:50 | History & Physical Report ---
Date of Service October 30, 2023 Assessment & Plan (1) Right knee DJD: 88-year-old gentleman with a long history of bilateral knee pain and discomfort consistent with advanced arthritis. Failed conservative measures. He is ready to have his right knee fixed. Plan: We will plan on taken to the operating room and do a right total knee replacement. The risks Mente this procedure planed the patient clued but not limited to DVT PE infection neurological injury vascular bleeding palm pain limb range of motion sepsis fairly with symptoms incomplete relief of symptoms excetra. The patient understands and desires to proceed. Informed consent was obtained. He has been seen by his primary care doctor Dr. Guadalupe and cleared for surgery. He is diabetic and will use insulin sliding scale coverage. Will check his vascular status preoperatively but we may do this without a tourniquet due to his calcification of his vessels. He is planned to be discharged home using the [facility] home health program and his 's assistance. Will plan on aspirin for DVT prophylaxis. (2) Left knee DJD: History of Present Illness Chief Complaint: Bilateral knee pain and discomfort right side greater than left. Primary Care Provider: Donnie Johnston MD . Patient is an 88-year-old gentleman who now presents for surgical treatment of his right knee. He is got a long history of knee pain discomfort is gradually gotten worse over time. The right side bothers him more than the left. He has had some skin issues that improved been putting off surgery. He has been managed most recently with some Dupixent which seemed of helped. Skin is all healed up. He like to have his knees fixed. The right knee is worse than the left. Is mostly medial pain. It is affecting his quality life. Has had injections which become less successful over time. Allergies Allergy/AdvReac Type Severity Reaction Status Date / Time nitrofurantoin Allergy Unknown Hives Verified 09/30/23 12:20 Penicillins Allergy Unknown Hives Verified 09/30/23 12:20 Sulfa (Sulfonamide Allergy Unknown Hives Verified 09/30/23 12:20 Antibiotics) sulfamethoxazole Allergy Unknown Hives Verified 09/30/23 12:20 trimethoprim Allergy Unknown Hives Verified 09/30/23 12:20 Home Medications Medication Instructions Recorded Confirmed Type aspirin 81 mg tablet,delayed 81 mg PO QAM 10/24/19 09/30/23 History release cholecalciferol (vitamin D3) 25 1,000 unit PO QAM 10/24/19 09/30/23 History mcg (1,000 unit) tablet (Vitamin D3) lisinopril 10 mg tablet 10 mg PO QAM 10/24/19 09/30/23 History metformin 500 mg tablet,extended 500 mg PO BID 10/24/19 09/30/23 History release 24 hr metoprolol succinate 100 mg 100 mg PO QAM 10/24/19 09/30/23 History tablet,extended release 24 hr multivitamin (Multiple Vitamins 1 tab PO QPM 10/24/19 09/30/23 History tablet) rosuvastatin 10 mg tablet 10 mg PO HS 10/24/19 09/30/23 History triamterene 37.5 1 cap PO HS 10/24/19 09/30/23 History mg-hydrochlorothiazide 25 mg capsule hydrocodone 5 mg-acetaminophen 325 1 tab PO Q6H PRN pain #14 tabs 12/09/22 09/30/23 Rx mg tablet Bifidobacterium infantis 4 mg 4 mg PO QPM 09/30/23 09/30/23 History capsule (Align) Dupixent Pen 1 dose INJ Q14D 09/30/23 09/30/23 History cyclosporine 0.05 % eye drops in a 1 drp ophthalmic (eye) BID 09/30/23 09/30/23 History dropperette (Restasis) docusate sodium 100 mg capsule 200 mg PO QPM 09/30/23 09/30/23 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 cordero, s CKD (chronic kidney disease) stage 3, GFR 30-59 ml/min HLD (hyperlipidemia) CAD (coronary artery disease) s/p 3 vessel CABG 2004 Hypertension Diabetes Glucose stable per patient Surgical History Hx of cystoscopy History of detached retina repair rt. Hx of cardiac cath 2004, following "silent" heart attack, no stents>triple CABG, [facility] History of colonoscopy with polypectomy Last 03/20/2015 adenomatous polyp History of arthroscopic knee surgery rt. History of cataract extraction rt/lt History of hernia repair Bilateral Hx of CABG heart attack (silent); x 3 BARRAZA to LAD, SVG to diagonal and obtuse 2005, [facility]; f/u dr. cordero, [facility] Family History Mother , 72 No problems noted. Father Cancer, Onset Age: 78 MDS Brother , 39 Sudden Social History Smoking Status: Former smoker Second Hand Exposure: No; Do You Dip or Chew Tobacco: No (quit 2004; advised); Hx Alcohol Use: Yes Alcohol type: beer Hx Substance Use: No Preferred Language: Pashto Communication Ability: Effective [employer] Research Analyst Required: No Beliefs That Will Affect Care: None marital status: Current Living Situation: Spouse and Family Current Living Situation Comment: lives with and son Feels Safe at Home: Yes Assistive Devices: Glasses Review of Systems All systems reviewed & are unremarkable except as noted in HPI & below. Physical Exam . Physical examination reveals healthy thin male. Looks being quite good health for his age. He walks with a varus alignment to his knees. Examination of the right knee reveals varus alignment. Tender with medial joint line. Small knee effusion. Range of motion about 5 degrees short of full extension to 120 de grees of flexion. There is no instability. Low bit of varus valgus laxity. No particular pain with hip motion. Examination left knee reveals a similar varus deformity. Nontender over the medial joint line. Small knee effusion. Range of motion is 5-1 20. No instability. Constitutional WD/WN, vitals as above Neck trachea midline, no thyromegaly Respiratory normal respiratory effort, lungs clear to auscultation Cardiovascular RRR, no murmur, no edema Gastrointestinal (Abdomen) normal bowel sounds, soft, nontender, no hepatosplenomegaly Results & Data Results & Data Laboratory Results . Diagnostic Findings . X-rays of both knees were reviewed. Shows advanced bilateral medial compartment DJD. Is got complete loss of the medial joint space. The right knee is a bit worse than the left. He is got significant vascular calcifications posteriorly. PG Care Time/CCT Total # of Minutes Spent Total Time Spent with Patient: Total time spent is greater than 50% in coordination of care (as documented) at patient's floor/unit and/or counseling patient: Coding Level of Care Code None Diagnoses Right knee DJD M17.11 Left knee DJD M17.12
[~2023-11-02 07:01] MED LIST: BUPIVACAINE 0.5 % 5 MG/1 ML PF 10ML VIAL ONE; ROPIVACAINE 0.5% 5 MG/ML 30 ML VIAL ONE
[2023-11-02] MEDS ORDERED: ONDANSETRON INJ 2 MG/ML 2 ML VIAL IV PRN ×2 (07:26→12:54)
[2023-11-02] MEDS ORDERED: ATROPINE SULFATE 0.1 MG/ML 10ML SYR IV PRN (07:26)
[2023-11-02] MEDS ORDERED: ePHEDrine sulfate 50 MG/ML AMP IV PRN (07:26)
[2023-11-02] MEDS ORDERED: fentaNYL citrate PF 100 MCG/2 ML VIAL IV PRN (07:26)
[2023-11-02] MEDS: ACETAMINOPHEN 500 MG TAB PO SCH ×2 (07:47→16:08)
[2023-11-02] MEDS: LR 500ML BOLUS, THEN 15ML/HR IV SCH (07:48)
[2023-11-02] MEDS: METOCLOPRAMIDE HCL 10 MG TABLET PO SCH (07:48)
[2023-11-02] MEDS: FAMOTIDINE 20 MG TAB PO SCH (07:48)
[2023-11-02] MEDS: LR 60ML/HR IV SCH (07:48)
[2023-11-02] MEDS ORDERED: fentaNYL citrate PF 100 MCG/2 ML VIAL ONE (08:31)
[2023-11-02] MEDS ORDERED: Nursing to Pharmacy Communication SCH (08:45)
--- NOTE | 2023-11-02 08:46 | History & Physical Bridge Note ---
Date of Service November 02, 2023 History & Physical Bridge Note I have examined the patient, reviewed the History & Physical and in the interval since the performance of the History & Physical I have noted the following changes of clinical significance: no changes noted
[2023-11-02] MEDS: ceFAZolin 2000MG 2,000 MG/15 ML SYR IV SCH (09:04)
[2023-11-02] MEDS ORDERED: PHENYLEPHRINE 100MCG/ML 10ML SYR IV ONE (09:47)
[2023-11-02] MEDS ORDERED: PROPOFOL IV EMULSION 10 MG/ML 20 ML VIAL IV ONE (09:47)
[2023-11-02] MEDS: ROPIV 0.5% 246mg, Ketorolac 30mg, EPINEPHrine 0.5mg in NSS INFIL SCH (09:56)
[2023-11-02] MEDS: ORTHO JOINT ANESTHETIC ONE (09:56)
[2023-11-02] MEDS: TRANEXAMIC ACID 1,000 MG **IV Intra-op IV SCH (09:59)
--- NOTE | 2023-11-02 10:55 | Operative Report ---
PG Post Operative Report Pre & Post Diagnosis Operation Date: 11/02/23 08:50 Pre-Op Diagnosis: Right Knee Degenerative Joint Disease Post-Op Diagnosis: Right Knee Degenerative Joint Disease I identified the patient and participated in the time-out.: Yes Procedure Operation Date: 11/02/23 08:50 Actual Procedures p Right Total Knee Arthroplasty(Right) - Rohith Bob MD Surgeon Rohith Bob MD [employer] Phill Hardwick PA-C Estimated Blood Loss 100 Findings Consistent with Post-Op Diagnosis Operative findings reveal advanced right knee DJD. He had extensive grade 4 [id number] disease in the medial compartment. He did have some spotty grade 4 changes in the lateral compartment as well and less severe in the patellofemoral compartment. Moderate-sized joint effusion. Osteophytes primarily medially. Specimens Right knee sent for pathology. Anesthesia Type Spinal MAC Complications none Disposition Accompanied Patient To Recovery: No Indications Patient is an 88-year-old fairly active gentleman has had a several year history of increasing bilateral knee pain discomfort right side greater than left he has been through extensive conservative treatment the past which became less successful. X-rays show advanced medial compartment arthritis. Surgical options were explained and he elected proceed with surgical management. He does have significant vascular disease and therefore we did not use the tourniquet during the surgery. Description of Procedure Operative implants consist of: 1 Biomet Vanguard size 65 right posterior stabilized femoral component. 2. Biomet size 67 tibial tray. 3. 10 mm post stabilized polyethylene insert. 4. 31 x 8 all poly patella. The patient was taken the operating, identified, placed on the operating table in the supine position. All contact areas were appropriately padded. IV antibiotics tried by anesthesia team. Spinal anesthetic and abductor canal block had been provided in the holding area. A right thigh tent was then placed but not used throughout the case. The right leg was then prepped and draped in usual sterile fashion. An anterior approach to the right knee was then performed to longitudinal incision centered over the patella. Sharp dissection was got through subcutaneous tissue down of the extensor mechanism. A medial parapatellar arthrotomy incision was made. Some subperiosteal dissection was carried out medially. The fat pad was resected from Neath patella tendon. The lateral patellofemoral ligament was released. Patella subluxated laterally knee was flexed. The osteophytes taken on distal femur. The ACL and PCL were then released from the distal femur and the tibia subluxated anteriorly. The external treatment line jig was then placed the interface the tibia and adjusted 14 mm medially. Proximal tibial cut was made remove about 2 mm of bone from the medial side. Tibia sized to a size 67. Attention drawn the femur. The distal femur stem with a sharp drop with intramedullary canal was suction. Right 6 degree valgus cutting guide was placed. The distal femoral cutting block was pinned in place. Distal femoral cut was made to take an additional 3 mm of bone off distal femur. The femur was then sized to a size 67-1/2. The AP cutting block was pinned parallel to the epicondylar axis which was 4 degrees external rotation. The anterior cut, anterior chamfer, posterior cut, posterior chamfer cuts were made for the box cutting guide was placed in just slight lateral and the box cut was made. The knee was flexed. The remnants of the medial and lateral menisci were excised. The osteophytes taken off the posterior aspect of the femur. I then trialed a femoral component. It was very loose on the femur so we elected to place a 65. This was a little bit tight so I did place a peek cutting block for the 65 implant and cut the anterior flange in the anterior chamfer. We are able to then put the 65 implant nicely. The tibial tray was pinned Nagélica external rotation. The drill and stem punch were used to create defect in proximal tibia for the tibial tray. The knee was then trialed and the 10 mm insert fit most appropriately. Attention drawn the patella. Patella was cleaned of all soft tissues. Patella thickness measured 23 mm in thickness was cut down to 14. Was sized to a size 31 patella. The lug holes were drilled for 31 patella. The lateral osteophyte was removed. Patella button was placed. Knee was taken through range of motion and the patella tracked nicely with no thumbs test. Attention drawn to placing the permanent components. Nupathe all trial components were removed. Bone plug was placed into this femur limit blood loss. Double batch Palacos G cement was mixed. A Biomet Vanguard size 65 right Po stabilized femoral component, a size 67 tibial tray, 10 mm post stabilized polyethylene insert, and a 31 x 8 all poly patella then cemented in place. The knee was brought out in full extension till cement hardened. Final cement check was then performed. The pericapsular tissues were injected with total 100 cc of Ortho a joint mix. The patient did receive 1 g tranexamic acid. We then irrigated the wound extensively. The extensor mechanism then closed with combination 1 PDS suture #1 Vicryl suture in a [id number] fashion. Extensor Meclomen checked found to be intact and subcutaneous tissues then closed with 2 Dexon suture in a buried interrupted fashion skin was closed skin rohan. Leg was then cleaned and dried and sterile dressing was Xeroform, 4 fours, sterile cast padding, Ed bandage were applied. Patient was then transferred to the recovery room in stable condition. Patient tolerated the procedure well and there were no complications. Phill Hardwick, my physician special education assistant, was present for the entire procedure. His assistance was essential and required for appropriate patient positioning, prepping and draping, surgical exposure, performing the technical details of the operation, placement the implants, closure of the wound, and placement of the sterile bandage. I attest to the content of the Intraoperative Record and any orders documented therein. Any exceptions are noted below.
--- OUTSIDE RECORDS SUMMARY | 2023-11-02 11:19 | External Medical Summary | Summary of Care ---
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); HTN, goal below 140/90; Chronic ischemic heart disease; Dyslipidemia, goal LDL below 70; Type 2 diabetes mellitus with diabetic dermatitis, unspecified whether rat exterminator insulin use (HCC); Encounter for long-term (current) use of medications Allergies Active Allergy Reactions Criticality Noted Date Comments Nitrofuran Derivatives 02/17/1999 macrodantin Penicillins Hives 02/17/1999 Sulfa Antibiotics 02/17/1999 rash Trimethoprim 10/24/2019 documented as of this encounter (statuses as of 10/11/2023) Medications Medication Sig Dispensed Refills Start Date End Date Status DAILY MULTIVITAMIN PO TABS 1 daily 0 Active VITAMIN D 1000 UNITS PO CAPSIndications:Lisa min D deficiency 1 capsule daily 30 Cap 11 06/08/2013 Active ASPIRIN 81 MG PO CHEWIndications:Benzol Operator nina ischemic heart disease One pill by mouth once a day with food 100 Tab 5 04/09/2014 Active RESTASIS 0.05 % ophthalmic emulsion 0 12/30/2017 Activ e Blood Glucose Monitoring Suppl ([employer] WorksTOUCH VERIO) w/Device KIT Use to check blood sugar daily Dx: E11.9 1 Kit 0 02/14/2019 Active PreserVision AREDS 2 Oral CapsuleIndications:M acular degeneration of both eyes, unspecified type Take 1 Cap by mouth 2 times a day. 60 Cap 5 03/28/2021 Active Glucose Blood In Vitro Strip USE TO CHECK GLUCOSE ONCE DAILY 100 Strip 3 01/02/2023 4 Active OneTouch Delica Plus [id number] USE TO CHECK GLUCOSE ONCE DAILY 100 Each 3 01/02/2023 4 Active Lisinopril 10 MG Oral Tablet (Prinivil)Indication s:Chronic ischemic heart disease,HTN, goal below 140/90 TAKE ONE TABLET BY MOUTH EVERY MORNING 90 Tablet 3 11/03/2022 4 Active Triamcinolone Acetonide 0.5 % External Cream (Aristocort)Indicati ons:Rash and nonspecific skin eruption Apply 2x daily to rash (or more if itchy instead of scratching) 454 g 0 04/22/2023 Active Additional Information Patient not taking.Reported on 10/11/2023 Probiotic Blend Oral Capsule Take by mouth. 0 Active traMADol HCl 50 MG Oral Tablet (Ultram)Indications: Primary osteoarthritis of both knees Take 1 Tablet by mouth every 6 hours as needed for Pain, Moderate. 60 Tablet 1 05/13/2023 Active Fluticasone Propionate 50 MCG/ACT Nasal Suspension (Flonase) Administer 2 Sprays into each nostril in the morning. 9.9 mL 0 05/21/2023 Active Additional Information Patient not taking.Reported on 10/11/2023 Dupixent 300 MG/2ML Subcutaneous Solution Pen-injector (Dupilumab) Starter Dose: Inject 600mg (2 pens) under the skin once. Then inject 300mg (1 pen) under the skin every two weeks thereafter. 8 mL 0 07/12/2023 Active Dupixent 300 MG/2ML Subcutaneous Solution Pen-injector (Dupilumab) Maintenance Dose: Inject 300mg (1 pen) under the skin every two weeks. 12 mL 3 08/24/2023 Active Rosuvastatin Calcium 10 MG Oral Tablet (Crestor)Indications :Dyslipidemia, goal LDL below 100 TAKE ONE TABLET BY MOUTH EVERY DAY 90 Tablet 3 08/27/2023 4 Active Triamterene-HCTZ 37.5-25 MG Oral Capsule (Dyazide)Indications :HTN, goal below 140/90 TAKE ONE CAPSULE BY MOUTH EVERY MORNING 90 Capsule 3 08/27/2023 4 Active Metoprolol Succinate ER 100 MG Oral Tablet Extended Release 24 Hour (toPROL XL)Indications:Chron ic coronary artery disease TAKE ONE TABLET BY MOUTH EVERY MORNING 90 Tablet 3 08/27/2023 4 Active cycloSPORINE 0.05 % Ophthalmic Emulsion (Restasis) instill 1 drop into both eyes twice a day 180 Each 1 09/08/2023 Active metFORMIN HCl ER 500 MG Oral Tablet Extended Release 24 Hour (Glucophage XR)Indications:Type 2 diabetes mellitus with hemoglobin A1c goal of less than 8.0% (HCC) TAKE ONE TABLET BY MOUTH TWICE A DAY WITH MORNING AND EVENING MEALS 180 Tablet 1 09/29/2023 5 Active Docusate Sodium 100 MG Oral Capsule (Colace) 2 Capsules. 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 Atopic dermatitis 10/11/2023 CAD in [place] artery 03/28/2021 Type 2 diabetes mellitus wit h stage 3 chronic kidney disease and hypertension 03/25/2020 Type 2 diabetes mellitus wit h hemoglobin A1c goal of less than 8.0% 07/18/2018 Dyslipidemia, goal LDL below 70 01/19/2018 Hemidiaphragm paralysis 06/23/2017 Frequent PVCs 01/18/2017 Vitamin D deficiency 06/08/2013 CHR ISCHEMIC HRT DIS NOS 04/08/2001 HTN, goal below 140/90 documented as of this encounter (statuses as of 10/11/2023) Resolved Problems Problem Noted Date Diagnosed Date Resolved Date Dysfunction of eustachian tube 12/31/2015 06/23/2017 Allergic rhinitis 12/31/2015 11/01/2018 Biceps tendon rupture 05/14/20112018 Type 2 diabetes mellitus wit h hemoglobin A1c goal of less than 7.0% 06/15/2010 07/18/2018 Overview: ICD-10 update of inactive term Retinal edema 11/19/2009 06/23/2017 Dyslipidemia, goal LDL below 100 08/22/2009 01/19/2018 Overview: Per Lipid Taxonomy. Unilateral inguinal hernia 01/26/2008 1 ADVANCE DIRECTIVE INFORMATION 12/08/2007 03/14/2019 Overview: No, Advance Directive brochure offered , patient declined. Chronic sinusitis 01/04/2007 06/23/2017 Chronic rhinitis 01/04/2007 06/23/2017 Screening for prostate cancer 06/08/2006 11/21/2008 Overview: Resolved per Screening Diagnosis Protocol #6 Disorder of diaphragm 02/17/20052016 Dermatitis 04/11/2002 06/23/2017 Mixed dyslipidemia 9 Overview: Per Lipid Taxonomy. DIVERTICULOSIS OF COLON 06/13 Heartburn 06/23/2017 Hepatitis 01/16/2019 documented as of this encounter (statuses as of 10/11/2023) Immunizations Name Administration Dates Next Due COVID-19 mRNA, LNP-s, No Pre serve, 2-Dose Series ([employer]) 08/04/2021,12/24/2020,11/29/2020 H1N1 2009 Influenza, IM 10/17/2009 Pneumococcal Conjugate Vacc, 13 Valent (Prevnar) 06/03/2015 Seasonal Influenza, PF, 6 M & above, IM , (FluLaval or Fluzone) 05/27/2020,07/20/2019,06/23/2018,06/2306/23/2018 Seasonal Influenza, Quadriva lent Hd (Fluzone Hd) 06/01/2023,07/07/2022,06/25/2021 Seasonal Influenza, Quadriva lent, No Preserve, IM 06/09/2016 Seasonal Influenza, Split, I IV3, With Preserve, Inj 06/03/2015,07/30/2014,06/02/2013,05/30,06/15/2011,07/14/2010,06/17/2009 ,07/30/2008,07/13/2007,07/14/2006 TD, Preservative Free 11/23/2011 TDAP (age 10 and older)(Boostrix) 09/24/2021 Varicella Zoster Vaccine (Adult) 08/30/2007 Zoster Vaccine Recombinant (Shingrix) 06/23/2018,01/13/2018 documented as of this encounter Social History Tobacco Use Types Packs/Day Years Used Date Smoking Tobacco: Never Passive Smoke Exposure: Never Smokeless Tobacco: Former Chew Quit: 01/11/2005 Tobacco Cessation:Counseling Given: Not Answered Comments:Quit Alcohol Use Standard Drinks/Week Comments Yes 0 (1 standard drink = 0.6 oz pur e alcohol) beer0-3/ weekend PHQ-2 Answer Date Recorded PHQ Adult Total Score 0 12/28/2022 Hunger Vital Sign Answer Date Recorded Within the past 12 months, y ou worried that your food would run out before you got the money to buy more. Never true 11/24/19 23 Within the past 12 months, t he food you bought just didn't last and you didn't have money to get more. Never true 11/23/2022 Sex and Gender Information Value Date Recorded Sex Assigned at Male 03/14/2019 7:45 AM EDT Gender Identity Male 03/14/2019 7:45 AM EDT Sexual Orientation Straight 03/14/2019 7: 45 AM EDT Job Start Date Occupation Industry Not on file Not on file Not on file documented as of this encounter Last Filed Vital Signs Vital Sign Reading Time Taken Comments Blood Pressure 130/62 10/11/2023 7:40 AM EST Pulse 88 10/11/2023 7:40 AM EST Temperature 36.1 C (96.9 F) 10/11/2023 7:40 AM ES T Respiratory Rate 16 10/11/2023 7:40 AM EST Oxygen Saturation 98% 10/11/2023 7:40 AM EST Inhaled Oxygen Concentration - - Weight 71.7 kg (158 lb) 10/11/2023 7:40 AM EST Height - - Body Mass Index 27.12 05/21/2023 5:19 PM EDT documented in this encounter Progress Notes * Donnie Johnston MD - 10/11/2023 7:48 AM EST Subjective: Sarah Garcia is a 87 year old male. Chief Complaint Patient presents with Follow Up Follow up HPI: 87-year-old seen today for routine six-month recheck but also notes that he is scheduled for right knee replacement surgery [facility] with Dr. Bob on November 02. He just had his pre operative evaluation per anesthesia last week at [facility]. He has not been contacted about any abnormal results. He is not bothered with exertional chest pain or dyspnea or overwhelming fatigue. He has not aware of heart palpitations or heart racing. He does not have increasing leg edema or orthopnea. No abnormal bleeding. He has been using Dupixent as prescribed by Dermatology for atopic dermatitis now for 3 or more months. He is tolerated this. Notes some achiness in shoulders where he gets injections every 2 weeks. The overall dermatitis has improved dramatically. He was told to not take Dupixent 2 weeks before surgery in 2 weeks after surgery by orthopedics. 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 ([facility]) E11.22, I12.9, N18.30 CAD in [place] artery I25.10 Type 2 diabetes mellitus with diabetic dermatitis ([facility]) E11.620 Atopic dermatitis L20.9 Current Outpatient Medications Medication Sig Dispense Refill DAILY MULTIVITAMIN PO TABS 1 daily VITAMIN D 1000 UNITS PO CAPS 1 capsule daily 30 Cap 11 ASPIRIN 81 MG PO CHEW One pill by mouth once a day with food 100 Tab 5 RESTASIS 0.05 % ophthalmic emulsion Blood Glucose Monitoring Suppl ([employer] VERIO) w/Device KIT Use to check blood sugar daily Dx: E11.9 1 Kit 0 PreserVision AREDS 2 Oral Capsule Take 1 Cap by mouth 2 times a day. 60 Cap 5 Glucose Blood In Vitro Strip USE TO CHECK GLUCOSE ONCE DAILY 100 Strip 3 OneTouch Delica Plus [id number] USE TO CHECK GLUCOSE ONCE DAILY 100 Each 3 Lisinopril 10 MG Oral Tablet (Prinivil) TAKE ONE TABLET BY MOUTH EVERY MORNING 90 Tablet 3 Probiotic Blend Oral Capsule Take by mouth. traMADol HCl 50 MG Oral Tablet (Ultram) Take 1 Tablet by mouth every 6 hours as needed for Pain, Moderate. 60 Tablet 1 Dupixent 300 MG/2ML Subcutaneous Solution Pen-injector (Dupilumab) Starter Dose: Inject 600mg (2 pens) under the skin once. Then inject 300mg (1 pen) under the skin every two weeks thereafter. 8 mL 0 Dupixent 300 MG/2ML Subcutaneous Solution Pen-injector (Dupilumab) Maintenance Dose: Inject 300mg (1 pen) under the skin every two weeks. 12 mL 3 Rosuvastatin Calcium 10 MG Oral Tablet (Crestor) TAKE ONE TABLET BY MOUTH EVERY DAY 90 Tablet 3 Triamterene-HCTZ 37.5-25 MG Oral Capsule (Dyazide) TAKE ONE CAPSULE BY MOUTH EVERY MORNING 90 Capsule 3 Metoprolol Succinate ER 100 MG Oral Tablet Extended Release 24 Hour (toPROL XL) TAKE ONE TABLET BY MOUTH EVERY MORNING 90 Tablet 3 cycloSPORINE 0.05 % Ophthalmic Emulsion (Restasis) instill 1 drop into both eyes twice a day 180 Each 1 metFORMIN HCl ER 500 MG Oral Tablet Extended Release 24 Hour (Glucophage XR) TAKE ONE TABLET BY MOUTH TWICE A DAY WITH MORNING AND EVENING MEALS 180 Tablet 1 Docusate Sodium 100 MG Oral Capsule (Colace) 2 Capsules. Triamcinolone Acetonide 0.5 % External Cream (Aristocort) Apply 2x daily to rash (or more if itchy instead of scratching) (Patient not taking: Reported on 10/11/2023) 454 g 0 Fluticasone Propionate 50 MCG/ACT Nasal Suspension (Flonase) Administer 2 Sprays into each nostril in the morning. (Patient not taking: Reported on 10/11/2023) 9.9 mL 0 Current Facility-Administered Medications Medication Dose Route Frequency Provider Last Rate Last Admin Dupilumab (Dupixent) 300 mg 300 mg Subcutaneous Q2 Weeks Aby Canada PA-C 300 mg at 10/05/23 0820 Review of patient's allergies indicates: Allergen Reactions Nitrofuran Derivatives macrodantin Penicillins Hives Sulfa Antibiotics rash Trimethoprim Objective: BP 130/62 | Pulse 88 | Temp 36.1 C (96.9 F) (Infrared ) | Resp 16 | Wt 71.7 kg (158 lb) | SpO2 98% | BMI 27.12 kg/m | BSA 1.8 m Physical Exam: CONST: alert, pleasant, no acute distress HEAD: normocephalic, atraumatic NECK: supple, soft, no adenopathy EARS: canals normal, TMs normal Eyes - PERRLA, EOM'I OROPHARYNX: clear, no swelling or erythema, moist CV: regular rate . Regular rhythm with frequent premature beats. no murmur (EKG 04/08/22 showed PVC's and PAC's. CHEST: clear to auscultation bilaterally, no rales or wheezing ABD: soft, non tender, non distended, no masses or hepatosplenomegaly EXT: no edema, no joint swelling or deformities, NEURO: AAOx3, no gross focal deficits, cerebellar signs normal, affect appropriate MENTAL STATUS: no evidence of thought disorder, no delusional thought, no evidence of paranoia, thought is non-tangential. SKIN: no rash or significant lesions EKG [facility] 10/07/2023 shows sinus rhythm with first-degree AV block. Inverted T- waves have replaced nonspecific T-wave abnormality in the inferior leads. CBC shows hemoglobin 15 and platelet count a [id number]. White blood count 9.6 to Basic metabolic panel shows a GFR 65. Electrolytes normal hemoglobin A1c was 7.1 ASSESSMENT/PLAN: Osteoarthritis knees. No further testing felt necessary. He is to take his BP meds and Metoprolol the AM of surgery. 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) Cont Metformin 500mg BID HTN, goal below 140/90 - ALBUMIN / CREATININE RATIO, URINE; Future; Expected date: 10/11/2023 Chronic ischemic heart disease- compensated, Cont Metoprolol Succinate 100mg daily Dyslipidemia, goal LDL below 70 - LIPID PANEL WITH DIRECT LDL IF TG IS HIGH; Future; Expected date: 10/11/2023 Rx Crestor 10mg daily Type 2 diabetes mellitus with diabetic dermatitis, unspecified whether residential insulin use (HCC)-see above Encounter for long-term (current) use of medications- Metformin - VITAMIN B12; Future; Expected date: 10/11/2023 Donnie Johnston MD documented in this encounter Nursing Notes * Jessica Watkins LPN - 10/11/2023 7:37 AM EST Chief Complaint Patient presents with Follow Up Follow up documented in this encounter Plan of Treatment Upcoming Encounters Date Type Department Care Team (Late st Contact Info) Description 2023 8:10 AM EST Nurse Only Dermatology, [place] [address] [facility], [place] [address] [place], Nurse Dermatology [address] [facility], [place] [address] 10/21/2023 3:00 PM EST Telemedicine Dermatology, [place] [address] [facility] [place] [address] [place], Pharmacist Dermatology [facility] [address] [facility] [place] [address] 11/16/2023 8:10 AM EST Nurse Only Dermatology, [place] [address] [facility], [place] [address] [place], Nurse Dermatology [address] [facility], [place] [address] 12/02/2023 1:20 PM EDT Office Visit Dermatology, [place] [address] [facility], [place] [address] Aby Canada PA-C [address] [place] [address] [place] [address] 01/03/2024 8:00 AM EDT Nurse Only Ancillary Department, [place] [address] [place] [address] [place], Nurse Annual Wellness [address] [place] [address] 04/11/2024 8:20 AM EDT Office Visit [facility], [place] [address] [place] [facility] [place] [phone] Donnie Johnston MD [address] [place] [address] Pending Results Name Type Priority Associated Diagnoses Date /Time LIPID PANEL WITH DIRECT LDL IF TG IS HIGH Lab Routine Dyslipidemia, goal LDL below 70 10/11/2023 8:22 AM EST VITAMIN B12 Lab Routine Encounter for long-term (current) use of medications 10/11/2023 8:22 AM EST ALBUMIN / CREATININE RATIO, URINE Lab Routine HTN, goal below 140/90 10/11/2023 8:22 AM EST Scheduled Orders Name Type Priority Associated Diagnoses Orde r Schedule LIPID PANEL WITH DIRECT LDL IF TG IS HIGH Lab Routine Dyslipidemia, goal LDL below 70 Expected: 10/11/2023, Expires: 10/11/2024 VITAMIN B12 Lab Routine Encounter for long-term (current) use of medications Expected: 10/11/2023 (Approximate), Expires: 10/10/2024 ALBUMIN / CREATININE RATIO, URINE Lab Routine HTN, goal below 140/90 Expected: 10/11/2023 (Approximate), Expires: 10/10/2024 Health Maintenance Due Date Last Done Comments COVID-19 Vaccine (2022-2 4 season) 2023 08/04/2021, 12/24/2020, 11/29/2020 Depression Screening 12/29/2023 12/28/2022 Zoster Vaccines Completed 06/23/2018, 11/2017, 08/30/2007 Influenza Vaccine (FLU shot) Completed , 07/07/2022, 06/25/2021, Additional history exists documented as of this encounter Medical Devices Implanted Type Area Park Maintainer Device Identifier Shelf Expiration Date Model / Serial / Lot B&L Intraocular Lens [id number] 20.5d Implanted:Qty: 1 on 05/14/2016 by Yousuf Fischer MD at OR [facility] Left: Eye 12/08/2016 [id number] / / [id number] documented as of this encounter Visit Diagnoses Diagnosis Atopic dermatitis, unspecified type- Primary Type 2 diabetes mellitus with diabetic dermatitis, unspecified whether rat exterminator insulin use (HCC) HTN, goal below 140/90 Unspecified essential hypertension Chronic ischemic heart disease Chronic ischemic heart disease, unspecified Dyslipidemia, goal LDL below 70 Other and unspecified hyperlipidemia Encounter for long-term (current) use of medications Encounter for long-term (current) use of other medications documented in this encounter Advance Directives Latest Code Status on File Code Status Date Activated Date Inactivated Comments Full Code 05/14/2016 8:14 AM 05/14/2016 2:01 PM This or steven reflects the patients wishes and were consensually agreed upon. Care Teams Gun Mechanic Relationship Specialty Start Date End Date Donnie Johnston MD [address] [place] [address] PCP - General 11/10/02 documented as of this encounter"
--- OUTSIDE RECORDS SUMMARY | 2023-11-02 11:19 | External Medical Summary | Summary of Care ---
Author Name Unknown Organization [facility] Address [address] [place] [address] Phone [phone] Care Team Providers Care Outbound Supervisor Name Role Phone Donnie Johnston MD Primary Care Provider [phone] Reason for Visit * Reason Comments Outpatient Testing Encounter Details Date Type Department Care Team (Late st Contact Info) Description 10/11/2023 8:40 AM EST Laboratory Laboratory, [place] [address] [place] [address] [place], Laboratory [address] [place] [address] Dyslipidemia, goal LDL below 70; Encounter for long-term (current) use of medications; HTN, goal below 140/90 Allergies Active Allergy Reactions Criticality Noted Date [...] 11 06/08/2013 Active ASPIRIN 81 MG PO CHEWIndications:Journeyman Pipefitter nina ischemic heart disease One pill by mouth once a day with food 100 Tab 5 04/09/2014 Active RESTASIS 0.05 % ophthalmic emulsion 0 12/30/2017 Activ e Blood Glucose Monitoring Suppl ([employer] VERIO) w/Device KIT Use to check blood sugar daily Dx: E11.9 1 Kit 0 02/14/2019 Active PreserVision AREDS 2 Oral CapsuleIndications:M acular degeneration of both eyes, unspecified type Take 1 Cap by mouth 2 times a day. 60 Cap 5 03/28/2021 Active Glucose Blood In Vitro Strip USE TO CHECK GLUCOSE ONCE DAILY 100 Strip 3 01/02/2023 4 Active OneTouch Delica Plus [id number] USE TO CHECK GLUCOSE ONCE DAILY 100 [...] and nonspecific skin eruption 300 mg SC [id number] 08/10/2023 Active documented as of this encounter (statuses as of 10/11/2023) Active Problems Problem Noted Date Diagnosed Date 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 Atopic dermatitis 10/11/2023 CAD in [place] artery 03/28/2021 Type 2 diabetes mellitus wit [...] mRNA, LNP-s, No Pre serve, 2-Dose Series ([employer]) 08/04/2021,12/24/2020,11/29/2020 H1N1 2009 Influenza, IM 10/17/2009 Pneumococcal [...] Never Smokeless Tobacco: Former Chew Quit: 01/11/2005 Comments:Quit Alcohol Use Standard Drinks/Week Comments Yes [...] on file documented as of this encounter Plan of Treatment Upcoming Encounters Date Type Department Care Team (Late st Contact Info) Description 2023 8:10 AM EST [place] [address] [place] [facility] [address] [place], Nurse Dermatology [address] [facility] [place] [address] 10/21/2023 3:00 PM EST [facility]medicine [facility] [address] [facility] [address] [place], Pharmacist Dermatology [address] [facility] [address] [facility] [place] [address] 11/16/2023 8:10 AM EST Nurse Only Dermatology, [place] [address] [facility], [place] [address] [place], Nurse Dermatology [address] [place] [address] 12/02/2023 1:20 PM EDT Office Visit Dermatology, [place] [address] [place] [place] [address] Aby Canada PA-C [address] [place] [address] [place] [address] 01/03/2024 8:00 AM EDT Nurse Only Ancillary Department, [place] [address] [place] [address] [place], Nurse Annual Well[facility] [address] [place] [address] 04/11/2024 8:20 AM EDT Office Visit Family Practice, [place] [address] [place] [place] [place] [phone] Donnie Johnston MD [address] [place] [address] Pending Results Name Type Priority Associated Diagnoses Date /Time LIPID PANEL WITH DIRECT LDL IF TG IS HIGH Lab Routine Dyslipidemia, goal LDL below 70 10/11/2023 8:22 AM EST VITAMIN B12 Lab Routine Encounter for long-term (current) use of medications 10/11/2023 8:22 AM EST ALBUMIN / CREATININE RATIO, URINE Lab Routine HTN, goal below 140/90 10/11/2023 8:22 AM EST Health Maintenance Due Date Last Done Comments COVID-19 Vaccine (2022- 4 season) 2023 08/04/2021, 12/24/2020, 11/29/2020 Depression Screening 12/29/2023 12/28/2022 Zoster Vaccines Completed 06/23/2018, 05/0 11/2017, 08/30/2007 Influenza Vaccine (FLU shot) Completed , 07/07/2022, 06/25/2021, Additional history exists documented as of this encounter Medical Devices Implanted Type Area Grocery Clerk Selling Device Identifier Shelf Expiration Date Model / Serial / Lot B&L Intraocular Lens [id number] 20.5d Implanted:Qty: 1 on 05/14/2016 by Yousuf Fischer MD at OR [facility] Left: Eye 12/08/2016 [id number] / / [id number] documented as of this encounter Visit Diagnoses Diagnosis Dyslipidemia, goal LDL below 70 Other and unspecified hyperlipidemia Encounter for long-term (current) use of medications Encounter for long-term (current) use of other medications HTN, goal below 140/90 Unspecified essential hypertension documented in this encounter Advance Directives Latest Code Status on File Code Status Date Activated Date Inactivated Comments Full Code 05/14/2016 8:14 AM 05/14/2016 2:01 PM This or steven reflects the patients wishes and were consensually agreed upon. Care Teams Outbound Supervisor Relationship Specialty Start Date End Date Donnie Johnston MD [address], [place] [id number] PCP - General 11/10/02 documented as of this encounter
--- OUTSIDE RECORDS SUMMARY | 2023-11-02 11:19 | External Medical Summary | Summary of Care ---
Author Name Unknown Organization [facility] Address [address] [place] [address] Phone [phone] Care Team Providers Care Quality Supervisor Name Role Phone Donnie Johnston MD Primary Care Provider [phone] Reason for Visit * Reason Comments Medication Administration Dupixent injec tion (300 mg) Encounter Details Date Type Department Care Team (Late st Contact Info) Description 2023 8:10 AM EST Nurse Only Dermatology, [place] [address] [place] [address] [place], Nurse Dermatology [address] [place] [address] Medication Administration (Dupixent inject... Allergies Active Allergy Reactions Criticality Noted Date Comments Nitrofuran Derivatives 02/17/1999 macrodantin Penicillins Hives 02/17/1999 Sulfa Antibiotics 02/17/1999 rash Trimethoprim 10/24/2019 documented as of this encounter (statuses as of 2023) Medications Medication Sig Dispensed Refills Start Date End Date Status DAILY MULTIVITAMIN PO TABS 1 daily 0 Active VITAMIN D 1000 UNITS PO CAPSIndications:Lisa min D deficiency 1 capsule daily 30 Cap 11 06/08/2013 Active ASPIRIN 81 MG PO CHEWIndications:Anthropology Department Chair nina ischemic heart disease One pill by [...] 3 01/02/2023 4 Active OneTouch Delica Plus [id number] USE TO CHECK GLUCOSE ONCE DAILY 100 Each 3 01/02/2023 4 Active Triamcinolone Acetonide 0.5 % External [...] Capsule (Colace) 2 Capsules. 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 Chief Complaint Patient presents with Medication Administration Dupixent injection (300 mg) Administered per orders. Injection given without difficulty. Patient tolerated well and left clinicin stable condition. documented in this encounter Plan of Treatment Upcoming Encounters Date Type Department Care Team (Late st Contact Info) Description 10/21/2023 3:00 PM EST Telemedicine Dermatology, Eran Foster [facility] [facility] [place] [address] [place], Pharmacist Dermatology [address] [facility] [place] [address] 11/16/2023 8:10 AM EST Nurse Only Dermatology, [place] [address] [facility], [place] [address] [place], Nurse Dermatology [address] [facility], [place] [address] 12/02/2023 1:20 PM EDT Office Visit Dermatology, [place] [address] [facility], [place] [address] Aby [place] PA-C [address] [place] [address] [place] [address] 01/03/2024 8:00 AM EDT Nurse Only Ancillary Department, [place] [address] [facility], [place] [address] [place], Nurse Annual Wellness [address] [facility], [place] [address] 04/11/2024 8:20 AM EDT Office Visit Family Practice, [place] [address] [facility], [place] [id number] Donnie Johnston MD [address] [place] [address] Health Maintenance Due Date Last Done Comments COVID-19 Vaccine (2022-2 4 season) 2023 08/04/2021, 12/24/2020, 11/29/2020 Depression Screening 12/29/2023 12/28/2022 Zoster Vaccines Completed 06/23/2018, 050 11/2017, 08/30/2007 Influenza Vaccine (FLU shot) Completed , 07/07/2022, 06/25/2021, Additional history exists documented as of this encounter Medical Devices Implanted Type Area Intensivist Device Identifier Shelf Expiration Date Model / Serial / Lot B&L Intraocular Lens Mi60l 20.5d Implanted:Qty: 1 on 05/14/2016 by Yousuf Fischer MD at OR [facility] Left: Eye 12/08/2016 [id number] / / [id number] documented as of this encounter Visit Diagnoses Diagnosis Encounter for medication administration- Primary documented in this encounter Administered Medications Active Administered Medications - up to 3 most recent administrations Medication Order MAR Action Action Date Dose Rate Site Dupilumab (Dupixent) 300 mg 300 mg, Subcutaneous, [id number], First dose on Wed08/10/23 at 0000, Until Discontinued Given 2023 8:27 AM EST 300 mg Arm Left Upper Given 10/05/2023 8:20 AM EST 300 mg Ar m Left Upper Given 09/21/2023 8:19 AM EST 300 mg Ar m Right Upper documented in this encounter Advance Directives Latest Code Status on File Code Status Date Activated Date Inactivated Comments Full Code 05/14/2016 8:14 AM 05/14/2016 2:01 PM This or steven reflects the patients wishes and were consensually agreed upon. Care Teams Quality Supervisor Relationship Specialty Start Date End Date Donnie Johnston MD [address] [place] [facility] [place] [place] [address] PCP - General 11/10/02 documented as of this encounter
--- OUTSIDE RECORDS SUMMARY | 2023-11-02 11:19 | External Medical Summary | Summary of Care ---
Author Name Unknown Organization [facility] Address [address] [place] [address] Phone [phone] Care Team Providers Care Children'S Lunchroom Supervisor Name Role Phone Donnie Johnston MD Primary Care Provider [phone] Reason for Visit * Reason Comments Dosage Adjustment Via Phone (anticoag Cl inic) Encounter Details Date Type Department Care Team (Late st Contact Info) Description 10/21/2023 3:00 PM EST Telemedicine Dermatology, Eran Foster [address] [facility] [place] [address] [place], Pharmacist Dermatology [address] [facility] [address] [facility] [place] [address] Rash and nonspecific skin eruption* Allergies Active Allergy Reactions Criticality Noted Date Comments Nitrofuran Derivatives 02/17/1999 macrodantin Penicillins Hives 02/17/1999 Sulfa Antibiotics 02/17/1999 rash Trimethoprim 10/24/2019 documented as of this encounter (statuses as of 10/21/2023) Medications Medication Sig Dispensed Refills Start Date End Date Status DAILY MULTIVITAMIN PO TABS 1 daily 0 Active VITAMIN D 1000 UNITS PO CAPSIndications:Lisa min D deficiency 1 capsule daily 30 Cap 11 06/08/2013 Active ASPIRIN 81 MG PO 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 Atopic dermatitis 10/11/2023 CAD in [place] artery 03/28/2021 Type 2 diabetes mellitus wit [...] as of this encounter (statuses as of 10/21/2023) Resolved Problems Problem Noted Date Diagnosed Date [...] as of this encounter (statuses as of 10/21/2023) Immunizations Name Administration Dates Next Due COVID-19 mRNA, LNP-s, No Pre serve, 2-Dose Series (VtagO) 08/04/2021,12/24/2020,11/29/2020 H1N1 2009 Influenza, IM 10/17/2009 Pneumococcal [...] on file documented as of this encounter Progress Notes * Noe Moreira, [facility] - 10/21/2023 3:03 PM EST After connecting to the patient via telephone, the patient was identified by name and date of . Patient was then informed that this was a telephone call only visit. The patient agreed to participate. Visit Disposition: Routine follow-up Total call duration was 15 minutes. 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 Stop date for present therapy: not applicable at this time. Last Dose: 10/19 Topical Therapy: none Phototherapy: no MEDICATION ASSESSMENT: Adherence: In the last month, how many times has patient missed a dose of above noted medication? none. In the last month, how many times has patient taken dosage later than instructed? none. Side Effects Reported: no What does patient do when they have these side effects? N/a Any new medication since last visit?: no new medications/OTC/herbals. SYMPTOM/ILLNESS ASSESSMENT : Patient account of regimen effectiveness: improvement in condition/symptoms. Hospitalization, ED visits, or surgery since last visit: No Joint symptoms: Have you ever had a swollen joint (joints)? no Has a doctor ever told you that you have arthritis? no Do you fingernails or toenails have holes or pits? no Have you had pain in your heel? no Have you had a finger or toe that was completely swollen and painful for no apparent reason? no Score: 0 3 or more "Yes" answers warrant referral to Rheumatology for further diagnostic workup. PLAN: Patient reports: - Doing well on Dupixent - Skin is clear and no longer itchy - just has a few spots left - Patient does report arm hurts after injection from Nurses. Recommended asking for injection in the thigh or stomach next time - No issues obtaining from pharmacy; affordable - Patient scheduled for Surgery 11/02 - Nurses advised him to hold further doses until 11/15 Auth on file Follow-Up Appointment(s): Pharmacist: 12 month Physician: 12/02/23 Noe Moreira RPh Medication Therapy Disease Management Dermatology Department 10/21/2023, 3:16 PM documented in this encounter Plan of Treatment Upcoming Encounters Date Type Department Care Team (Late st Contact Info) Description 11/16/2023 8:10 AM EST Nurse [facility] [address] [facility] [address] Nurse [place] [facility] [address] [facility] [place] [address] 12/02/2023 1:20 PM EDT Office Visit Dermatology, [place] [address] [place] [facility] [place] [address] Aby Canada PA-C [address] [place] [address] [place] [address] 01/03/2024 8:00 AM EDT Nurse Only Ancillary Department, [place] [address] [place] [facility] [address] [place], Nurse Annual Wellness [address] [place] [facility] [place] [address] 04/11/2024 8:20 AM EDT Office Visit Family Practice, [place] [address] [place] [facility] [phone] Donnie Johnston MD [address] [place] [facility] [place] [address] 07/20/2024 9:00 AM EST Telemedicine Dermatology, Eran Foster [address] [facility] [place] [address] [place], Pharmacist [facility] [address] [facility] [address] [facility] [place] [address] Health Maintenance Due Date Last Done Comments COVID-19 Vaccine (2022-2 4 season) 2023 08/04/2021, 12/24/2020, 11/29/2020 Depression Screening 12/29/2023 12/28/2022 Zoster Vaccines Completed 06/23/2018, 0511/2017, 08/30/2007 Influenza Vaccine (FLU shot) Completed , 07/07/2022, 06/25/2021, Additional history exists documented as of this encounter Medical Devices Implanted Type Area Wireless Field Technician Device Identifier Shelf Expiration Date Model / Serial / Lot B&L Intraocular Lens Mi60l 20.5d Implanted:Qty: 1 on 05/14/2016 by Yousuf Fischer MD at OR [facility] Left: Eye 12/08/2016 [id number] / / [id number] documented as of this encounter Visit Diagnoses Diagnosis Rash and nonspecific skin eruption- Primary Rash and other nonspecific skin eruption documented in this encounter Advance Directives Latest Code Status on File Code Status Date Activated Date Inactivated Comments Full Code 05/14/2016 8:14 AM 05/14/2016 2:01 PM This or steven reflects the patients wishes and were consensually agreed upon. Care Teams Children'S Lunchroom Supervisor Relationship Specialty Start Date End Date Donnie Johnston MD [address] [place] [address] PCP - General 11/10/02 documented as of this encounter
--- OUTSIDE RECORDS SUMMARY | 2023-11-02 11:19 | External Medical Summary ---
Author Name Unknown Address Unknown Organization [id number]:[facility] [place] [address] [place] [address] Laboratory Report Ordering Provider Test Date Status PIOTR [place] 10/11/2023 08:22:43 Final Observation Date Value Abnormality Reference (Units ) Status LDL, (direct) 10/11/2023 08:22:43 37 <=129 (mg/dL) Final LDL Cholesterol Reference Ra nges (mg/dL):
<70 Target level for high risk ASCVD patient
<100 Optimal for general population
100-129 Near optimal for general population
130-159 Borderline high
160-189 High
>=190 Very high Performing Location [facility] - [address] [place] [address]
--- OUTSIDE RECORDS SUMMARY | 2023-11-02 11:19 | External Medical Summary | Summary of Care ---
Author Name Unknown Organization [facility] Address [address] [place] [address] Phone [phone] Care Team Providers Care Family Physician Name Role Phone Donnie Johnston MD Primary Care Provider [phone] Encounter Details Date Type Department Care Team (Late st Contact Info) Description 10/07/2023 Result Scan Unspecified Department <No scans attached> Allergies Active Allergy Reactions Criticality Noted Date Comments Nitrofuran Derivatives 02/17/1999 macrodantin Penicillins Hives 02/17/1999 Sulfa Antibiotics 02/17/1999 rash Trimethoprim 10/24/2019 documented as of this encounter (statuses as of 10/13/2023) Medications Medication Sig Dispensed Refills Start Date End Date Status DAILY MULTIVITAMIN PO TABS 1 daily 0 Active VITAMIN D 1000 UNITS PO CAPSIndications:Lisa min D deficiency 1 capsule daily 30 Cap 11 06/08/2013 Active ASPIRIN 81 MG PO 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 One pill [...] GLUCOSE ONCE DAILY 100 Strip 3 01/02/2023 Active OneTouch Delica Plus [id number] USE TO CHECK GLUCOSE ONCE DAILY 100 [...] MEALS 180 Tablet 1 09/29/2023 5 Active Hospital, Clinic, or Other Facility Administered Medication Ordered Dose Route Frequency Start Date End Date Status Dupilumab (Dupixent) 300 mgIndications:Encounter for medication administration,Rash and nonspecific skin eruption 300 mg SC [id number] 08/10/2023 Active documented as of this encounter (statuses as of 10/13/2023) Active Problems Problem Noted Date Diagnosed Date 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 Atopic dermatitis 10/11/2023 CAD in [place] artery 03/28/2021 Type 2 diabetes mellitus wit [...] as of this encounter (statuses as of 10/13/2023) Resolved Problems Problem Noted Date Diagnosed Date [...] as of this encounter (statuses as of 10/13/2023) Immunizations Name Administration Dates Next Due COVID-19 [...] Packs/Day Years Used Date Smoking Tobacco: Never Smokeless Tobacco: Former Chew Quit: 01/11/2005 [...] 2023 8:10 AM EST Nurse Only [facility]ermatology, [place] [address] [facility] [address] [place] Nurse Dermatology [address] [facility] [address] 10/21/2023 3:00 PM EST [facility] [address] [facility] [place] [address] [place], Pharmacist Dermatology E [facility] [address] [facility] [place] [address] 11/16/2023 8:10 AM EST Nurse Only Dermatology, [place] [address] [facility] [address] [place] Nurse Dermatology [address] [facility] [address] 12/02/2023 1:20 PM EDT Office Visit Dermatology [place] [address] [facility] [address] Aby [place] PA-C [address] [place] [address] [place] [address] 01/03/2024 8:00 AM EDT Nurse Only Ancillary Department, [place] [address] [facility], [place] [address] [place], Nurse Annual Wellness [address] [facility], [place] [id number] 04/11/2024 8:20 AM EDT Office Visit Family Practice, [place] [address] [facility], [place] [phone] Donnie Johnston MD [address] [facility] [place] [id number] Health Maintenance Due Date Last Done Comments COVID-19 Vaccine (2022-2 4 season) 2023 08/04/2021, 12/24/2020, 11/29/2020 Depression Screening 12/29/2023 12/28/2022 Zoster Vaccines Completed 06/23/2018, 11/2017, 08/30/2007 Influenza Vaccine (FLU shot) Completed , 07/07/2022, 06/25/2021, Additional history exists documented as of this encounter Medical Devices Implanted Type Area Chief Security Officer Device Identifier Shelf Expiration Date Model / Serial / Lot B&L Intraocular Lens Mi60l 20.5d Implanted:Qty: 1 on 05/14/2016 by Yousuf Fischer MD at [facility] Left: Eye 12/08/2016 [id number] / / [id number] documented as of this encounter Procedures Procedure Name Priority Date/Time Associated Diagnosis Comments EKG SCANNED RESULT 10/07/2023 documented in this encounter Results * EKG SCANNED RESULT (10/07/2023) 10/07/2023 No Physician Data Unknown EKG documented in this encounter Advance Directives Latest Code Status on File Code Status Date Activated Date Inactivated Comments Full Code 05/14/2016 8:14 AM 05/14/2016 2:01 PM This or steven reflects the patients wishes and were consensually agreed upon. Care Teams Family Physician Relationship Specialty Start Date End Date Donnie Johnston MD [address] [place] [facility] [place] [address] PCP - General 11/10/02 documented as of this encounter
--- OUTSIDE RECORDS SUMMARY | 2023-11-02 11:19 | External Medical Summary ---
Author Name Unknown Address Unknown Organization K01:[facility]ORY [facility] [place] - [address] [place] [address] Laboratory Report Ordering Provider Test Date Status PIOTR [place] 10/11/2023 08:22:43 Final Observation Date Value Abnormality Reference (Units ) Status Vitamin B12 10/11/2023 08:22:43 [phone] (pg/mL) Final Performing Location [facility] - [address] [place] [address]
--- OUTSIDE RECORDS SUMMARY | 2023-11-02 11:19 | External Medical Summary | Summary of Care ---
Author Name Unknown Organization [facility] Address [address] [place] [address] Phone [phone] Care Team Providers Care Stack Attendant Name Role Phone Donnie Johnston MD Primary Care Provider [phone] Encounter Details Date Type Department Care Team (Late st Contact Info) Description 10/13/2023 Orders Only [facility] [address] [place] [address] Donnie Johnston MD [address] [place] [address] Allergies Active Allergy Reactions Criticality Noted Date [...] 11 06/08/2013 Active ASPIRIN 81 MG PO CHEWIndications:Hair Tinter nina ischemic heart disease One pill by mouth once a day with food 100 Tab 5 04/09/2014 Active RESTASIS 0.05 % ophthalmic emulsion 0 12/30/2017 Activ e Blood Glucose Monitoring Suppl (eVestment VERIO) w/Device KIT Use to check blood sugar daily Dx: E11.9 1 Kit 0 02/14/2019 Active PreserVision AREDS 2 Oral CapsuleIndications:M acular degeneration of both eyes, unspecified type Take 1 Cap by mouth 2 times a day. 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 Atopic dermatitis 10/11/2023 CAD in [place] artery 03/28/2021 Type 2 diabetes mellitus wit [...] mRNA, LNP-s, No Pre serve, 2-Dose Series (DigiSynd) 08/04/2021,12/24/2020,11/29/2020 H1N1 2009 Influenza, IM 10/17/2009 Pneumococcal [...] Description 2023 8:10 AM EST Nurse Only Dermatology [place] [address] [facility] [address] [place] [facility] [address] [facility] [address] 10/21/2023 3:00 PM EST Telemedicine Dermatology, [place] [address] [facility] [address] [place], Pharmacist Dermatology [facility] [address] [facility] [place] [address] 11/16/2023 8:10 AM EST Nurse Only Dermatology [place] [address] [facility], [place] [address] [place], Nurse Dermatology [address] [place] [address] 12/02/2023 1:20 PM EDT Office Visit Dermatology, [place] [address] [facility], [place] [address] Aby [place] PA-C [address] [place] [address] [place] [address] 01/03/2024 8:00 AM EDT Nurse Only Ancillary Department, [place] [address] [facility], [place] [address] [place], Nurse Annual Wellness [address] [facility], [place] [address] 04/11/2024 8:20 AM EDT Office Visit Family Practice, [place] [address] [facility], [place] [phone] Donnie Johnston MD [address] [facility] [place] [phone] Health Maintenance Due Date Last Done Comments COVID-19 Vaccine (2022-2 4 season) 2023 08/04/2021, 12/24/2020, 11/29/2020 Depression Screening 12/29/2023 12/28/2022 Zoster Vaccines Completed 06/23/2018, 050 11/2017, 08/30/2007 Influenza Vaccine (FLU shot) Completed , 07/07/2022, 06/25/2021, Additional history exists documented as of this encounter Medical Devices Implanted Type Area Rig Builder Device Identifier Shelf Expiration Date Model / Serial / Lot B&L Intraocular Lens [id number] 20.5d Implanted:Qty: 1 on 05/14/2016 by Yousuf Fischer MD at OR [facility] Left: Eye 12/08/2016 [id number] / / [id number] documented as of this encounter Procedures Procedure Name Priority Date/Time Associated Diagnosis Comments CHEMISTRY-OUTSIDE Routine 10/07/2023 documented in this encounter Results * (ABNORMAL) CHEMISTRY-OUTSIDE (10/07/2023) Not all results display below - see scan for full detail OUTSIDE LAB (SEE SCANNED REPORT) Comment:SCAN INCLUDES - PREA DMISSION TESTING: CBCD, BMP, CRP, PT, INR, PTT, HBA1C CREATININE-OUTSID E LAB 1.16 0.6 - 1.4 MG/DL OUTSIDE LAB (SEE SCANNED REPORT) EGFR-OUTSIDE LAB 56.3 ML/MIN/1.7 3M2 OUTSIDE LAB (SEE SCANNED REPORT) POTASSIUM-OUTSIDE LAB 4.1 3.5 - 5.1 MMOL/L OUTSIDE LAB (SEE SCANNED REPORT) GLUCOSE-OUTSIDE LAB 141(A) 70 - 99 MG/DL OUTSIDE LAB (SEE SCANNED REPORT) HOURS FASTING OUTSID E LAB (SEE SCANNED REPORT) TRIGLYCERIDES-OUT SIDE LAB OUTSIDE LAB (SEE SCANNED REPORT) CHOLESTEROL-OUTSI DE LAB OUTSIDE LAB (SEE SCANNED REPORT) HDL-OUTSIDE LAB OUTS CHIO LAB (SEE SCANNED REPORT) CHOL/HDL RATIO-OUTSIDE LAB OUTSIDE LA B (SEE SCANNED REPORT) LDL (CALCULATED)-OUTS CHIO LAB OUTSIDE LAB (SEE SCANNED REPORT) LDL (DIRECT MEASURE)-OUTSIDE LAB OUTSIDE LAB (SEE SCANNED REPORT) HEMOGLOBIN, V8Z-HCELMOC LAB 7.1(A) 4.5 - 5.6 % OUTSIDE LAB (SEE SCANNED REPORT) PHOSPHORUS-OUTSID E LAB OUTSIDE LAB (SEE SCANNED REPORT) PTH-OUTSIDE LAB OUTS CHIO LAB (SEE SCANNED REPORT) MICROALBUMIN RATIO-OUTSIDE LAB OUTSIDE LA B (SEE SCANNED REPORT) PROTEIN, UA-OUTSIDE LAB OUTSIDE LAB (SEE SCANNED REPORT) HEMOGLOBIN-OUTSID E LAB 15.0 14.0 - 18.0 G/DL OUTSIDE LAB (SEE SCANNED REPORT) 10/07/2023 Rohith Bob MD LABORATORY OUTSIDE LAB (SEE SCANNED REPORT) documented in this encounter Advance Directives Latest Code Status on File Code Status Date Activated Date Inactivated Comments Full Code 05/14/2016 8:14 AM 05/14/2016 2:01 PM This or steven reflects the patients wishes and were consensually agreed upon. Care Teams Stack Attendant Relationship Specialty Start Date End Date Donnie Johnston MD [address] [place] [address] PCP - General 11/10/02 documented as of this encounter
--- OUTSIDE RECORDS SUMMARY | 2023-11-02 11:19 | External Medical Summary | Summary of Care ---
Author Name Unknown Organization [facility] Address [address] [place] [address] Phone [phone] Care Team Providers Care Labor Law Professor Name Role Phone Celso Johnston MD Primary Care Provider [phone] Reason for Visit * Reason Comments Outpatient Testing Encounter Details Date Type Department Care Team (Late st Contact Info) Description 10/11/2023 8:40 AM EST Laboratory Laboratory, [place] [address] [place] [address] [place], Laboratory [address] [place] [address] Dyslipidemia, goal LDL below 70; Encounter for long-term (current) use of medications; HTN, goal below 140/90 Allergies Active Allergy Reactions Criticality Noted Date Comments Nitrofuran Derivatives 02/17/1999 macrodantin Penicillins Hives 02/17/1999 Sulfa Antibiotics 02/17/1999 rash Trimethoprim 10/24/2019 documented as of this encounter (statuses as of 10/24/2023) Medications Medication Sig Dispensed Refills Start Date End Date Status DAILY MULTIVITAMIN PO TABS 1 daily 0 Active VITAMIN D 1000 UNITS PO CAPSIndications:Vit hawley D deficiency 1 capsule daily 30 Cap 11 06/08/2013 Active ASPIRIN 81 MG PO CHEWIndications:Chr onic ischemic heart disease One pill by mouth once a day with food 100 Tab 5 04/09/2014 Active RESTASIS 0.05 % ophthalmic emulsion 0 12/30/2017 Activ e Blood Glucose Monitoring Suppl (ONETOUCH VERIO) w/Device KIT Use to check blood sugar daily Dx: E11.9 1 Kit 0 02/14/2019 Active PreserVision AREDS 2 Oral CapsuleIndications: Macular degeneration of both eyes, unspecified type Take 1 Cap by mouth 2 times a day. 60 Cap 5 03/28/2021 Active Glucose Blood In Vitro Strip USE TO CHECK GLUCOSE ONCE DAILY 100 Strip 3 01/02/2023 4 Active OneTouch Delica Plus [id number] USE TO CHECK GLUCOSE ONCE DAILY 100 Each 3 01/02/2023 4 Active Triamcinolone Acetonide 0.5 % External Cream (Aristocort)Indicat ions:Rash and nonspecific skin eruption Apply 2x daily to rash (or more if itchy instead of scratching) 454 g 0 04/22/2023 Active Additional Information Patient not taking.Reported on 10/11/2023 Probiotic Blend Oral Capsule Take by mouth. 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 coronary artery disease TAKE ONE TABLET BY [...] 09/30/2023 Active Lisinopril 10 MG Oral Tablet (Prinivil)Indicatio ns:Chronic ischemic heart disease,HTN, goal below 140/90 TAKE ONE TABLET BY MOUTH EVERY MORNING 90 Tablet 3 11/03/2022 4 Discontinu ed(Refill) Hospital, Clinic, or Other Facility Administered Medication Ordered Dose Route Frequency Start Date End Date Status Dupilumab (Dupixent) 300 mgIndications:Encounter for medication administration,Rash and nonspecific skin eruption 300 mg SC [id number] 08/10/2023 Active documented as of this encounter (statuses as of 10/24/2023) Active Problems Problem Noted Date Diagnosed Date 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 DIVERTICULOSIS OF COLON 06/13 Heartburn 06/23/2017 Hepatitis 01/16/2019 documented as of this encounter (statuses as of 10/24/2023) Immunizations Name Administration Dates Next Due COVID-19 mRNA, LNP-s, No Pre serve, 2-Dose Series (Biscoot) 08/04/2021,12/24/2020,11/29/2020 H1N1 2009 Influenza, IM 10/17/2009 Pneumococcal Conjugate Vacc, 13 Valent (Prevnar) 06/03/2015 Pneumococcal Polysaccharide PPV23 (Pneumovax) 08/03/2002,05/04/1990 Seasonal Influenza Virus Vac cine, Unspecified Formulation 07/15/1998 Seasonal Influenza, PF, 6 M & above, IM , (FluLaval or Fluzone) 05/27/2020,07/20/2019,06/23/2018,06/1306/23/2018 Seasonal Influenza, Quadriva lent Hd (Fluzone Hd) 06/01/2023,07/07/2022,06/25/2021 Seasonal Influenza, Quadriva lent, No Preserve, IM 06/09/2016 Seasonal Influenza, Split, I IV3, With Preserve, Inj 06/03/2015,07/30/2014,06/02/2013,05/14,06/15/2011,07/14/2010,06/17/20 09,07/30/2008,07/13/2007,07/14/2006,1 ,07/02/2004,07/24/2003,07/04,08/15/2001,10/13/2000, 9 TD - Tetanus/Diptheria (ADULT) 04/11/2002 TD, Preservative Free 11/23/2011 TDAP (age 10 and older)(Boostrix) 09/24/2021 Varicella Zoster Vaccine (Adult) 08/30/2007 Zoster Vaccine Recombinant (Shingrix) 06/23/2018 ,01/13/2018 documented as of this encounter Social History [...] on file documented as of this encounter Miscellaneous Notes * Addendum Note - Celso Johnston MD - 10/24/2023 8:29 AM ESTAddended by: CELSO JOHNSTON on: 10/24/2023 08:29 AM Modules accepted: Orders documented in this encounter Plan of Treatment Upcoming Encounters Date Type Department Care Team (Late st Contact Info) Description 11/16/2023 8:10 AM EST Nurse Only Dermatology, [place] [address] [place] [facility] [address] [place], Nurse Dermatology [address] [place] [facility] [address] 12/02/2023 1:20 PM EDT Office Visit Dermatology, [place] [address] [facility], [place] [address] Aby [place] PA-C [address] [place] [address] [place] [address] 01/03/2024 8:00 AM EDT Nurse Only Ancillary Department, [place] [address] [address] [facility], [place] [address] [place], Nurse Annual Wellness [address] [facility], [place] [address] 04/11/2024 8:20 AM EDT Office Visit Family [facility], [place] [address] [address] [facility], [place] [phone] Celso Johnston MD [address] [place], [place] [phone] 07/20/2024 9:00 AM EST Telemedicine Dermatology, [place]ran Foster [address] [place] [address] [place], Pharmacist Dermatology [place] [address] [facility] [place] [address] Scheduled Orders Name Type Priority Associated Diagnoses Orde r Schedule LIPID PANEL WITH DIRECT LDL IF TG IS HIGH Lab Routine Dyslipidemia, goal LDL below 70 Expected: 10/24/2023, Expires: 10/24/2024 Health Maintenance Due Date Last Done Comments COVID-19 Vaccine (4 - 2022-2 4 season) 2023 08/04/2021, 12/24/2020, 11/29/2020 Depression Screening 12/29/2023 12/28/2022 Zoster Vaccines Completed 06/23/2018, 05/0 11/2017, 08/30/2007 Influenza Vaccine (FLU shot) Completed , 07/07/2022, 06/25/2021, Additional history exists documented as of this encounter Medical Devices Implanted Type Area Director Educational Radio Device Identifier Shelf Expiration Date Model / Serial / Lot B&L Intraocular Lens Mi60l 20.5d Implanted:Qty: 1 on 05/14/2016 by Yousuf Fischer MD at [facility] Left: Eye 12/08/2016 [id number] / / [id number] documented as of this encounter Procedures Procedure Name Priority Date/Time Associated Diagnosis Comments LIPID PANEL WITH DIRECT LDL IF TG IS HIGH Routine 10/11/2023 8:22 AM EST Dyslipidemia, goal LDL below 70 ALBUMIN / CREATININE RATIO, URINE Routine 10/11/2023 8:22 AM EST HTN, goal below 140/90 LDL CHOLESTEROL (DIRECT MEASURE) Routine 10/11/2023 8:22 AM EST Dyslipidemia, goal LDL below 70 VITAMIN B12 Routine 10/11/2023 8:22 AM EST Encounter for long-term (current) use of medications documented in this encounter Results * LDL CHOLESTEROL (DIRECT MEASURE) (10/11/2023 8:22 AM EST) LDL Cholesterol (Direct Measure) 37 <=129 mg/dL 10/11/2023 4:13 PM EST LABORATORY [facility] Comment: LDL Cholesterol Reference Ranges (mg/dL): <70 Target level for high risk ASCVD patient <100 Optimal for general population 100-129 Near optimal for general population 130-159 Borderline high 160-189 High >=190 Very high Blood Venous blood specimen / Unknown Venipuncture / Unknown 10/11/2023 8:22 AM EST 10/11/2023 8:25 AM EST Celso Johnston MD LAB BLOOD ORDERABLES Performing Organization Address [facility] Co de Phone Number LABORATORY [facility] [address] [place] [address] * ALBUMIN / CREATININE RATIO, URINE (10/11/2023 8:22 AM EST) Albumin, Random Urine 2.70 mg/dL 10/11/2023 5:44 PM EST LAB[facility]ATORY [facility] Creatinine, Random Urine 126 mg/dL 10/11/2023 5:44 PM EST LAB[facility]ATORY [facility] Albumin / Creatinine Ratio, Urine 21 <30 mg/g Creat 10/11/2023 5:44 PM EST LAB[facility]ATORY [facility] Urine Urine specimen obtained by clean catch procedure / Unknown Non-blood Collection / Unknown 10/11/2023 8:22 AM EST 10/11/2023 8:25 AM EST Narrative LABORATORY [facility] - 10/11/2023 5:44 PM EST Normal: <30 mg/g creatinine High: 30-300 mg/g creatinine Very High: >300 mg/g creatinine Nephrotic: >2200 mg/g creatinine Celso Johnston MD LAB URINE ORDERABLES Performing Organization Address [facility] de Phone Number LABORATORY [facility] [address] [place] [address] * VITAMIN B12 (10/11/2023 8:22 AM EST) Vitamin B12 450 232 - 1,245 pg/mL 10/11/2023 4:48 PM EST LAB[facility]ATORY [facility] Blood Venous blood specimen / Unknown Venipuncture / Unknown 10/11/2023 8:22 AM EST 10/11/2023 8:25 AM EST Celso Johnston MD LAB BLOOD ORDERABLES Performing Organization Address City/[facility] Co de Phone Number LABORATORY [facility] [address] [place] [address] * (ABNORMAL) LIPID PANEL WITH DIRECT LDL IF TG IS HIGH (10/11/2023 8:22 AM EST) Triglycerides 483(H) <=174 mg/dL 10/11/2023 3:59 PM EST LAB[facility]ATORY [facility] Comment: Triglyceride Reference Ranges (mg/dL): <150 Acceptable 150-174 Borderline high 175-499 High >=500 Very high Cholesterol 143 <200 mg/dL 10/11/2023 3:59 PM EST LAB[facility]ATORY [facility] Comment: Total Cholesterol Reference Ranges (mg/dL): <200 Desirable 200-239 Borderline high >=240 High HDL Cholesterol 31(L) >39 mg/dL 3:59 PM EST LAB[facility]ATORY [facility] Comment: HDL Cholesterol Reference Ranges (mg/dL): >=60 High (Desirable) <50 Low (Undesirable) For Females <40 Low (Undesirable) For Males Non-HDL Cholesterol 112 <=159 mg/dL 10/11/2023 3:59 PM EST LAB[facility]ATORY [facility] Comment: Non-HDL Cholesterol Reference Range (mg/dL): <100 Target level for high risk ASCVD patient <130 Optimal for general population 130-159 Near optimal for general population 160-189 Borderline High 190-219 High >=220 Very High Blood Venous blood specimen / Unknown Venipuncture / Unknown 10/11/2023 8:22 AM EST 10/11/2023 8:25 AM EST Celso Johnston MD LAB BLOOD ORDERABLES LABORATORY [facility] [address] [place] [address] documented in this encounter Visit Diagnoses Diagnosis Dyslipidemia, goal [...] and were consensually agreed upon. Care Teams Labor Law Professor Relationship Specialty Start Date End Date Celso Johnston MD [address] [place] [address] PCP - General 11/10/02 documented as of this encounter
--- OUTSIDE RECORDS SUMMARY | 2023-11-02 11:19 | External Medical Summary ---
Author Name Unknown Address Unknown Organization [id number]:LABORATORY [facility] - [address] [place] [address] Laboratory Report Ordering Provider Test Date Status PIOTR HOUSTON 10/11/2023 08:22:43 Final Observation Date Value Abnormality Reference (Units ) Status Triglyceride 10/11/2023 08:22:43 483 Above high normal <=174 (mg/dL) Final Triglyceride Reference Range s (mg/dL):
<150 Acceptable
150-174 Borderline high
175-499 High
>=500 Very high Cholesterol 10/11/2023 08:22:43 143 <200 (mg /dL) Final Total Cholesterol Reference Ranges (mg/dL):
<200 Desirable
200-239 Borderline high
>=240 High HDL 10/11/2023 08:22:43 31 Below low normal >39 (mg/dL) Final HDL Cholesterol Reference Ra nges (mg/dL):
>=60 High (Desirable)
<50 Low (Undesirable) For Females
<40 Low (Undesirable) For Males NON-HDL CHOLESTEROL 10/11/2023 08:22:43 112 <=159 (mg/dL) Final Non-HDL Cholesterol Referenc e Range (mg/dL):
<100 Target level for high risk ASCVD patient
<130 Optimal for general population
130-159 Near optimal for general population
160-189 Borderline High
190-219 High
>=220 Very High Performing Location LABORATORY [facility] - [address] [place] [address]
--- OUTSIDE RECORDS SUMMARY | 2023-11-02 11:19 | External Medical Summary | Summary of Care ---
Author Name Unknown Organization [facility] Address [address] [place] [address] Phone [phone] Care Team Providers Care Dispatch Associate Name Role Phone Celso Johnston MD Primary Care Provider [phone] Reason for Visit * Reason Comments Medication Refill Encounter Details Date Type Department Care Team (Late st Contact Info) Description 10/15/2023 [address]ill [facility] [address] [place] [address] Celso Johnston MD [address] [place] [address] CHR ISCHEMIC HRT DIS NOS; HTN, goal below 140/90 Allergies Active Allergy Reactions Criticality Noted Date Comments Nitrofuran Derivatives 02/17/1999 macrodantin Penicillins Hives 02/17/1999 Sulfa Antibiotics 02/17/1999 rash Trimethoprim 10/24/2019 documented as of this encounter (statuses as of 10/15/2023) Medications Medication Sig Dispensed Refills Start Date [...] 12/30/2017 Activ e Blood Glucose Monitoring Suppl (Skiin FundementalsTOUCH VERIO) w/Device KIT Use to check blood sugar daily Dx: E11.9 1 Kit 0 02/14/2019 Active PreserVision AREDS 2 Oral CapsuleIndications: Macular degeneration of both eyes, unspecified type Take 1 Cap by mouth 2 times a day. 60 Cap 5 03/28/2021 Active Glucose Blood In Vitro Strip USE TO CHECK GLUCOSE ONCE DAILY 100 Strip 3 01/02/2023 4 Active OneTouch Delica Plus [id number] USE TO CHECK GLUCOSE ONCE DAILY 100 [...] Oral Tablet Extended Release 24 Hour (toPROL XL)Indications:Er Registrar nina coronary artery disease TAKE ONE TABLET [...] MORNING 90 Tablet 2 10/15/2023 5 Active Lisinopril 10 MG Oral Tablet (Prinivil)Indicatio ns:Chronic ischemic heart disease,HTN, goal below 140/90 TAKE ONE TABLET BY MOUTH EVERY MORNING 90 Tablet 3 11/03/2022 4 Discontinu ed(Refill) Hospital, Clinic, or Other Facility Administered Medication Ordered Dose Route Frequency Start Date End Date Status Dupilumab (Dupixent) 300 mgIndications:Encounter for medication administration,Rash and nonspecific skin eruption 300 mg SC [id number] 08/10/2023 Active documented as of this encounter (statuses as of 10/15/2023) Active Problems Problem Noted Date Diagnosed Date 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 Atopic dermatitis 10/11/2023 CAD in [place] artery 03/28/2021 Type 2 diabetes mellitus wit [...] as of this encounter (statuses as of 10/15/2023) Resolved Problems Problem Noted Date Diagnosed Date [...] as of this encounter (statuses as of 10/15/2023) Immunizations Name Administration Dates Next Due COVID-19 [...] as of this encounter Miscellaneous Notes * Telephone Encounter - Savana Fernandes [facility] - 10/15/2023 1:17 PM ESTSigned Prescriptions: Disp Refills Lisinopril 10 MG Oral Tablet (Prinivil) 90 Tab*2 Sig: TAKE ONE TABLET BY MOUTH EVERY MORNING Authorizing Provider: CELSO JOHNSTON Ordering User: SAVANA FERNANDES * Telephone Encounter - Laura Murray CPhT - 10/15/2023 12:43 PM EST Did you pend patient's preferred pharmacy and medication before forwarding?yes Pharmacy: [facility] Pending Prescriptions: Disp Refills Lisinopril 10 MG Oral Tablet (Prinivil) 90 Tab*3 Sig: TAKE ONE TABLET BY MOUTH EVERY MORNING Last Visit: 10/11/2023 (in office), Visit date not found (telemedicine) Next Visit: 04/11/2024 If no future appointments scheduled, and last appointment is greater than a year ago, please schedule patient for a follow-up appointment Last date the medication was ordered: 11/03/2022 Is this request for a controlled substance?No Urine Drug Screen:No results found for this or any previous visit. Patient Phone Numbers [employer] [phone] Labs: Lab Results Component Value Date/Time CREAT 1.16 10/07/2023 12:00 AM CREAT 1.3 (H) 08/14/2020 08:18 AM POTASSIUM 4.1 10/07/2023 12:00 AM POTASSIUM 4.8 08/14/2020 08:18 AM POTASSIUM 4.1 09/16/1996 07:55 AM TSH 2.97 09/12/2018 04:51 PM LDLCALC 38 07/18/2018 08:25 AM LDLCALC 123. 09/16/1996 07:55 AM LDLDIRECT 37 10/11/2023 08:22 AM LDLDIRECT 49 08/14/2020 08:18 AM LDLDIRECT 19 11/05/2010 09:05 AM LDLDIRECT RESULTS RECHECKED 11/05/2010 09:05 AM ALT 25 04/08/2023 09:21 AM ALT 29 08/14/2020 08:18 AM HGBA1C 7.1 (A) 10/07/2023 12:00 AM HGBA1C 6.6 (H) 03/25/2020 09:36 AM documented in this encounter Plan of Treatment Upcoming Encounters Date Type Department Care Team (Late st Contact Info) Description 2023 8:10 AM EST Nurse Only Dermatology, [place] [address] [facility], [place] [address] [place], Nurse Dermatology [address] [facility], [place] [address] 10/21/2023 3:00 PM EST Telemedicine Dermatology, Eran Foster [address] [facility] [place] [id number] [place], Pharmacist Dermatology [facility] [address] [facility] [place] [address] 11/16/2023 8:10 AM EST Nurse Only Dermatology, [place] [address] [facility], [place] [address] [place], Nurse Dermatology [address] [facility], [place] [address] 12/02/2023 1:20 PM EDT Office Visit Dermatology, [place] [address] [facility], [place] [address] Aby [place] PA-C [address] [place] [address] [place] [address] 01/03/2024 8:00 AM EDT Nurse Only Ancillary Department, [place] [address] [place] [facility] [address] [place], Nurse Annual Wellness [address] [facility], [place] [address] 04/11/2024 8:20 AM EDT Office Visit Family Practice, [place] [address] [facility], [place] [id number] Celso Johnston MD [address] [facility] [place] [address] Health Maintenance Due Date Last Done Comments COVID-19 Vaccine (4 2022-2 4 season) 2023 08/04/2021, 12/24/2020, 11/29/2020 Depression Screening 12/29/2023 12/28/2022 Zoster Vaccines Completed 06/23/2018, 05/0 11/2017, 08/30/2007 Influenza Vaccine (FLU shot) Completed , 07/07/2022, 06/25/2021, Additional history exists documented as of this encounter Medical Devices Implanted Type Area Deicer Finisher Device Identifier Shelf Expiration Date Model / Serial / Lot B&L Intraocular Lens [id number] 20.5d Implanted:Qty: 1 on 05/14/2016 by Yousuf Fischer MD at OR [facility] Left: Eye 12/08/2016 [id number] / / [id number] documented as of this encounter Visit Diagnoses Diagnosis CHR ISCHEMIC HRT DIS NOS Chronic ischemic heart disease, unspecified HTN, goal below 140/90 Unspecified essential hypertension documented in this encounter Advance Directives Latest Code Status on File Code Status Date Activated Date Inactivated Comments Full Code 05/14/2016 8:14 AM 05/14/2016 2:01 PM This or steven reflects the patients wishes and were consensually agreed upon. Care Teams Dispatch Associate Relationship Specialty Start Date End Date Celso Johnston MD [address] [facility] [place] [address] PCP - General 11/10/02 documented as of this encounter
--- OUTSIDE RECORDS SUMMARY | 2023-11-02 11:20 | External Medical Summary ---
Author Name Unknown Address Unknown Organization K01:[facility] [place] [facility] [address] [place] [address] Laboratory Report Ordering Provider Test Date Status PIOTR HOUSTON 10/11/2023 08:22:43 Final Normal: <30 mg/g creatinine< br/>High: 30-300 mg/g creatinine
Very High: >300 mg/g creatinine
Nephrotic: >2200 mg/g creatinine Observation Date Value Abnormality Reference (Units ) Status Albumin, Urine 10/11/2023 08:22:43 2.70 (mg/dL) Final Creatinine, Urine 10/11/2023 08:22:43 126 (mg/dL) Final Albumin/Creatinine [Mass Ratio] in Urine 10/11/2023 08:22:43 21 <30 (mg/g Creat) Final Performing Location [facility] [place] [facility] [address] [place] [address]
--- NOTE | 2023-11-02 12:03 | XRay Report ---
RIGHT KNEE 2 VIEWS History: Right total knee arthroplasty. Degenerative arthritis. Postop. FINDINGS: The patient is status post a right total knee arthroplasty. The hardware is intact. No frac ture or dislocation. Skin rohan are in place. IMPRESSION: Right total knee arthroplasty. No evidence for hardware complication. ACT 112: Negative or not required by law. Electronically signed by: Goran Irby M.D. 11/02/2023 12:01 PM
[2023-11-02] MEDS ORDERED: ALUMINUM/MAGNESIUM SUSP 30 ML UDC PO PRN (12:54)
[2023-11-02] MEDS ORDERED: PHARMACY GLYCEMIC MGMT CONSULT PRN (12:54)
[2023-11-02] MEDS ORDERED: MAGNESIUM HYDROXIDE SUSP 30 ML UDC PO PRN (12:54)
[2023-11-02] MEDS ORDERED: NALOXONE HCL 0.4 MG/1 ML VIAL/CARP IV PRN (12:54)
[2023-11-02] MEDS ORDERED: bisacodyL 10 MG SUPP PR PRN (12:54)
[2023-11-02] MEDS ORDERED: METOCLOPRAMIDE HCL INJ 5 MG/ML 2 ML VIAL IV PRN (12:54)
[2023-11-02] MEDS ORDERED: HYDROmorphone INJ 0.5 MG/0.5 ML SYR IV PRN (12:54)
[2023-11-02] MEDS: SODIUM CHLORIDE 0.9% 1,000 ML IV SCH (13:01)
[2023-11-02] MEDS ORDERED: ARTIFICIAL TEARS OP PRN (13:06)
--- NOTE | 2023-11-02 13:18 | Anesthesiology Progress Note ---
Date of Service November 02, 2023 Anesthesia Post Procedure Vital Signs Vital Signs: Temp Pulse Pulse Resp BP Pulse Ox O2 Del Method 11/02/23 13:10 97.3 F L 63 16 128/77 98 Room Air 11/02/23 12:47 97.3 F L 64 18 122/69 97 Room Air 11/02/23 12:25 61 19 111/52 L 96 Room Air 11/02/23 11:55 60 22 114/59 L 96 Room Air 11/02/23 11:45 62 20 111/59 L 94 Room Air 11/02/23 11:35 62 20 104/56 L 94 Room Air 11/02/23 11:25 65 20 107/58 L 93 Room Air 11/02/23 11:15 97.5 F L 65 20 101/53 L 95 Oxymask 11/02/23 11:05 65 20 99/54 L 96 Oxymask 11/02/23 10:55 67 21 105/57 L 97 Oxymask 11/02/23 10:45 96.8 F L 78 20 93/47 L 97 Oxymask 11/02/23 07:25 97.5 F L 72 20 154/80 H 97 Room Air O2 Flow Rate 11/02/23 13:10 11/02/23 12:47 11/02/23 12:25 11/02/23 11:55 11/02/23 11:45 11/02/23 11:35 11/02/23 11:25 11/02/23 11:15 4 11/02/23 11:05 4 11/02/23 10:55 8 11/02/23 10:45 8 11/02/23 07:25 Transfer of Care Handoff Completed per policy Notes Mental Status: alert / awake / arousable and participated in evaluation Patient Amnestic to Procedure: Yes Nausea / Vomiting: adequately controlled Pain: adequately controlled Airway Patency, RR, SpO2: stable & adequate BP & HR: stable & adequate Hydration State: stable & adequate Neuraxial Anesthesia: was administered and sensory block is resolving Anesthetic Complications: no major complications apparent and Pt Satisfied with anesthetic care
[2023-11-02] MEDS: KETOROLAC TROMETHAMINE 15 MG/ML VIAL IV SCH (13:38)
--- NOTE | 2023-11-02 13:54 | Pharmacy Report ---
Pharmacy Glycemic Short Note 2 - Date of Service November 02, 2023 - Glycemic Short BSG Results (Last 24 hours): 11/02/23 11/02/23 07:39 10:47 POC Glucose 156 H 151 H OUTPATIENT ANTIDIABETIC REGIMEN: * metformin ER 500mg BID * HbA1c 7.1% (10/07/23) ASSESSMENT: * Sarah is a 88 YOM admitted status post right total knee arthroplasty and a history of type 2 diabetes mellitus. Pharmacy has been consulted to assist with glycemic management while inpatient * Preoperative BSG acceptable, it does not appear that he received any steroids preoperatively. Will defer basal at this time, dexamethasone 10mg IV ordered for tomorrow morning, will likely need some basal insulin to cover. * Novolog initiated at a weight based stress of 2. PLAN FOR INPATIENT GLYCEMIC CONTROL: * Hold outpatient oral diabetes medications * Basal insulin * Hold for now, reassess in AM with dexamethasone. * Bolus insulin * NovoLog per scale ACHS or Q6hrs while NPO * Goal Range: Low 110 mg/dL - High 140 mg/dL * Correction Factor: 35 mg/dL/unit * Nutritional / Prandial insulin per carb ratio of 1 unit per 12 grams CHO consumed
[2023-11-02] MEDS ORDERED: NON-FORMULARY MEDICATION (Amino Acids [Amino Acid] Capsule) PO SCH (14:00)
[2023-11-02] MEDS: INSULIN ASPART PER UNIT CHARGE SC SCH (14:09)
[2023-11-02] MEDS: ceFAZolin 1000MG 1,000 MG/7.5 ML SYR IV SCH (17:26)
[2023-11-02] MEDS: ASCORBIC ACID 500 MG TAB PO SCH (17:27)
[2023-11-02] MEDS: TRANEXAMIC ACID / 0.7% NACL 1,000 MG/100 ML BAG IV SCH (17:36)
[2023-11-02] MEDS: SENNA 8.6 MG TAB PO SCH (19:27)
[2023-11-02] MEDS: TRIAMTERENE/HCTZ 37.5/25MG CAP PO SCH (20:28)
[2023-11-02] MEDS: ASPIRIN 81 MG ECTAB PO SCH (20:28)
[2023-11-02] MEDS: DOCUSATE SODIUM 100 MG CAP PO SCH (20:29)
[2023-11-02] MEDS: ROSUVASTATIN CALCIUM 10 MG TAB PO SCH (20:29)
[2023-11-02] MEDS ORDERED: NON-FORMULARY MEDICATION (Multivitamin [Multiple Vitamins] Tablet) PO SCH (21:00)
[2023-11-02] MEDS ORDERED: NON-FORMULARY MEDICATION (Bifidobacterium Infantis [Align] 4 mg Capsule) PO SCH (21:00)
[2023-11-02] MEDS ORDERED: SENNA 8.6 MG TAB PO SCH (21:00)
[2023-11-02] MEDS ORDERED: DOCUSATE SODIUM 100 MG CAP PO SCH (21:00)
[2023-11-03] MEDS: traMADol HCL 50 MG TABLET PO PRN (00:31)
[2023-11-03 07:03] LABS: Hematocrit (blood only) 33.8 % (42.0-52.0); Hemoglobin 11.1 g/dl (14.0-18.0); Mean Corpuscular Hemoglobin 32.2 pg (25.0-34.0); Mean Corpuscular Hgb Conc 32.8 g/dL (32.0-36.0); Mean Platelet Volume 11.9 fL (9.4-12.4); Platelet Count 143 K/uL (130-400); RDW Coefficient of Variation 14.9 % (11.5-14.5); RDW Standard Deviation 53.8 fL (36.4-46.3); Red Blood Count 3.45 M/uL (4.70-6.10); White Blood Count 11.05 K/ul (4.8-10.8)
[2023-11-03] MEDS: dexAMETHasone 10 MG in SYRINGE 0 ML IV SCH (07:24)
[2023-11-03 07:31] LABS: BUN Creatinine Ratio 27.3 (10-20); Calcium 8.2 mg/dl (8.6-10.3); Creatinine Clr Calc Pharmacy 36.7 ml/min; Est GFR (African American) 61.6 ml/min; Est GFR (Non-African American) 53.1 ml/min; Potassium 4.4 mmol/L (3.5-5.1)
[2023-11-03] MEDS: METOPROLOL SUCC 50MG EXT REL TAB PO SCH (08:28)
[2023-11-03] MEDS: TAMSULOSIN HCL 0.4 MG CAP PO SCH (08:28)
[2023-11-03] MEDS: lisinopril 10 MG TAB PO SCH (08:28)
[2023-11-03] MEDS: CHOLECALCIFEROL 25 MCG (1000 UNITS) TAB PO SCH (08:28)
[2023-11-03] MEDS: MULTIVITAMIN TAB PO SCH (08:29)
--- NOTE | 2023-11-03 12:02 | Pharmacy Report ---
Pharmacy Glycemic Short Note 2 - Date of Service November 03, 2023 - Glycemic Short BSG Results (Last 24 hours): 11/02/23 11/02/23 11/03/23 16:23 20:05 06:42 Glucose 120 H POC Glucose 169 H 131 H 11/03/23 11/03/23 07:32 11:33 Glucose POC Glucose 120 H 190 H OUTPATIENT ANTIDIABETIC REGIMEN: * metformin ER 500mg BID * HbA1c 7.1% (10/07/23) ASSESSMENT: 11/03 * Patient received only 4 units of correctional insulin yesterday, PO intake poor * Fasting BSG 120 mg/dL - ordered one time dose of IV dexamethasone this AM, anticipate BSGs to rise. Held NPH this AM due to BSG value, however now trending up at lunch time so reasonable to add on small dose of NPH to cover steroid effects 11/02 * Sarah is a 88 YOM admitted status post right total knee arthroplasty and a history of type 2 diabetes mellitus. Pharmacy has been consulted to assist with glycemic management while inpatient * Preoperative BSG acceptable, it does not appear that he received any steroids preoperatively. Will defer basal at this time, dexamethasone 10mg IV ordered for tomorrow morning, will likely need some basal insulin to cover. * Novolog initiated at a weight based stress of 2. PLAN FOR INPATIENT GLYCEMIC CONTROL: * Hold outpatient oral diabetes medications * Basal insulin * NPH 10 units x 1 now with IV dexamethasone 10 mg iv * Bolus insulin * NovoLog per scale ACHS or Q6hrs while NPO * Goal Range: Low 110 mg/dL - High 140 mg/dL * Correction Factor: 25 mg/dL/unit * Nutritional / Prandial insulin per carb ratio of 1 unit per 8 grams CHO consumed
[2023-11-03] MEDS: NovoLIN-N (NPH) PER UNIT CHARGE SQ ONE (12:18)
--- NOTE | 2023-11-03 12:31 | Surgery Progress Note ---
Date of Service November 03, 2023 Assessment & Plan (1) Status post right knee replacement: Plan: 88-year-old gentleman postop day 1 from right knee replacement doing well. His pain is controlled. He is neurologically intact. Therapy went well. He is hoping to go home. Plan: 1. DVT prophylaxis including thigh-high teds, SCDs, aspirin twice a day. 2. PT/OT. Weight-bear as tolerated. Right total knee protocol. 3. Pain control doing okay with current pain regimen. 4. Disposition plan to discharge home with some home health today Admission and Anticipated Discharge Date Admission Date: November 02, 2023 Subjective 88-year-old gentleman postop day 1 from right knee replacement. He is doing well. Describes some soreness in his leg and that is it. Therapy went well. No chest pain or shortness of breath. Not feeling dizzy or lightheaded. He is open to go home today. Therapy went well. Physical Exam Physical Exam: Physical examination is a pleasant elderly male. Sitting by the bedside chair looks comfortable. Examination the right leg reveals a dressing clean dry and intact. He can dorsiflex and plantarflex his foot appropriately. He is neurologically intact he can do a straight leg raise. Respiratory: normal respiratory effort, lungs clear to auscultation Cardiovascular: RRR, no murmur, no edema Gastrointestinal (Abdomen): normal bowel sounds, soft, nontender, no hepatosplenomegaly Results & Data Vital Signs (Past 12 Hours) Vital Signs Temp Pulse Resp BP Pulse Ox O2 Del Method 11/03/23 11:24 36.4 C L 72 16 129/69 95 Room Air 11/03/23 08:41 36.5 C 69 16 156/67 H 97 Room Air 11/03/23 02:35 36.9 C 66 18 112/64 94 Room Air Laboratory Results Hemoglobin is 11.1. Hematocrit 33.8. Electrolytes are stable. PG Care Time/CCT Total # of Minutes Spent Total Time Spent with Patient: Total time spent is greater than 50% in coordination of care (as documented) at patient's floor/unit and/or counseling patient: Coding Level of Care Code 79924 Post Operative Follow-Up Diagnoses Status post right knee replacement Z96.651
--- NOTE | 2023-11-08 06:39 | Discharge Summary ---
Date of Service November 08, 2023 Discharge Data Procedures Performed Operation Date: 11/02/23 08:50 Actual Procedures p Right Total Knee Arthroplasty(Right) - Rohith Bob MD Hospital Course (1) Status post right knee replacement: This is a 88 year old patient admitted on 11/02/23 and underwent total knee arthroplasty. He tolerated the procedure well and there were no complications. Transferred to the PACU post op and later to the orthopedic floor for further care. He was given ancef for antibiotic prophylaxis. He was also given CLAUDIA stockings, SCDs, and aspirin for DVT prophylaxis. Hemoglobin, hematocrit, and vital signs were monitored during his hospital stay and remained stable. Did not require any blood transfusions. There were no complications during his hospital stay. By post op day #1 the patient was tolerating a diabetic diet, pain was reasonably controlled with oral pain medicine, and he was participating in physical therapy. On post op day #1 the patient was discharged home and set up with home health care. He was given printed discharge instructions including prescriptions for extra strength tylenol, aspirin, cefadroxil, ketorolac, zofran, senokot, flomax, and tramadol. Continue physical therapy, weight bearing as tolerated. Continue CLAUDIA stockings. Follow up approximately 2 weeks post op or sooner if there are problems or concerns. Coding Level of Care Code None Diagnoses Status post right knee replacement Z96.651
== END 2023-11-03 13:45 | disposition home health service (06) ==
LOC: 3E 07:01 → ASU 07:01

== ENCOUNTER 2024-12-16 19:27 | Inpatient (IN) ==
--- OUTSIDE RECORDS SUMMARY | 2024-12-16 19:31 | External Medical Summary | Summary of Care ---
Author Name Unknown Organization [facility] Address [address] [place] [address] Phone [phone] Care Team Providers Care Hazardous Waste Management Specialist Name Role Phone Donnie Johnston MD Primary Care Provider [phone] Encounter Details Date Type Department Care Team (Late st Contact Info) Description 12/13/2024 11:00 AM EDT [facility] [address] [place] [address] [place], Nurse [address] [place] [address] Arrived Allergies Active Allergy Reactions Criticality Noted Date Comments Nitrofuran Derivatives 02/17/1999 macrodantin Penicillins Hives 02/17/1999 Sulfa Antibiotics 02/17/1999 rash Trimethoprim 10/24/2019 documented as of this encounter (statuses as of 12/13/2024) Medications DAILY MULTIVITAMIN PO TABS 1 daily Active VITAMIN D 1000 UNITS PO CAPSIndications:Vi tamin D deficiency 1 capsule daily 30 Cap 11 06/08/20 13 Active ASPIRIN 81 MG PO CHEWIndications:Ch ronic ischemic heart disease One pill by mouth once a day with food 100 Tab 5 04/09/20 14 Active PreserVision AREDS 2 Oral CapsuleIndications :Macular degeneration of both eyes, unspecified type Take 1 Cap by mouth 2 times a day. 60 Cap 5 03/28/20 21 Active Probiotic Blend Oral Capsule Take by mouth. Ac tive cycloSPORINE 0.05 % Ophthalmic Emulsion (Restasis) instill 1 drop into both eyes twice a day 180 Each 1 12/02/2023 9:43 AM EDT 09/08/20 23 Active Docusate Sodium 100 MG Oral Capsule (Colace) 2 Capsules. 09/30/19 24 Active OneTouch Verio w/Device Kit Use to check blood sugar daily Dx: E11.9 1 Kit 06/27/2024 5:32 PM EDT 06/27/20 24 Active OneTouch Delica Plus [id number] ns:Type 2 diabetes mellitus with hemoglobin A1c goal of less than 8.0% (HCC) Use to check blood sugar 3 times daily 300 Each 3 07/27/2024 12:22 PM EST 07/26/20 24 Active OneTouch Verio In Vitro Strip (Glucose Blood)Indications: Type 2 diabetes mellitus with hemoglobin A1c goal of less than 8.0% (HCC) USE TO CHECK GLUCOSE THREE TIMES DAILY 300 Strip 3 07/27/2024 12:22 PM EST 07/26/20 24 Active Fluticasone Propionate 50 MCG/ACT Nasal Suspension (Flonase)Indicatio ns:Dysfunction of left eustachian tube Administer 2 Sprays into each nostril in the morning. 16 g 1 08/02/20 24 Active cycloSPORINE 0.05 % Ophthalmic Emulsion (Restasis) Instill 1 drop into both eyes twice a day 180 Each 2 08/17/2024 4:49 PM EST 08/16/20 24 Active Triamcinolone Acetonide 0.5 % External Cream (Aristocort)Indica tions:Rash and nonspecific skin eruption Apply topically to affected area 2 times a day. To rash 30 g 09/08/20 24 Active traMADol HCl 50 MG Oral Tablet (Ultram)Indication s:Primary osteoarthritis of both knees Take 1 Tablet by mouth every 6 hours as needed for moderate Pain 60 Tablet 1 11/21/2024 2:11 PM EDT 09/11/20 24 Active Diclofenac Sodium 1 % External Gel (Voltaren)Indicati ons:Generalized osteoarthritis Apply 4 grams to affected joints up to 4 times daily as needed 400 g 3 09/12/20 24 Active Colchicine 0.6 MG Oral Tablet Take 1 Tablet by mouth in the morning. 90 Tablet 1 12/09/2024 10:11 AM EDT 01/02/20 25 Active Additional Information Patient not taking.Reported on 12/01/2024 cycloSPORINE 0.05 % Ophthalmic Emulsion (Restasis) instill one drop into both eyes twice daily 180 Each 1 10/20/2024 1:44 PM EST 09/20/19 25 Active Metoprolol Succinate ER 100 MG Oral Tablet Extended Release 24 Hour (toPROL XL)Indications:Chr onic coronary artery disease TAKE ONE TABLET BY MOUTH EVERY MORNING 100 Tablet 10/07/2024 10:29 AM EST 10/05/19 25 026 Active Rosuvastatin Calcium 10 MG Oral Tablet (Crestor)Indicatio ns:Dyslipidemia, goal LDL below 100 TAKE ONE TABLET BY MOUTH EVERY DAY 90 Tablet 1 10/14/2024 2:57 PM EST 10/13/19 25 026 Active Lisinopril 10 MG Oral Tablet (Prinivil)Indicati ons:Chronic ischemic heart disease,HTN, goal below 140/90 Take 1 Tablet by mouth every evening. 90 Tablet 3 11/07/19 25 Active Furosemide 20 MG Oral Tablet (Lasix) 1 tab 3 days per week in AM : Wed 45 Tablet 3 11/07/19 25 Active Potassium Chloride Brooke ER 10 MEQ Oral Tablet Extended Release 1 tab 3 days per week: Wed 45 Tablet 3 11/07/19 25 Active metFORMIN HCl ER 500 MG Oral Tablet Extended Release 24 Hour (Glucophage XR)Indications:Typ e 2 diabetes mellitus with hemoglobin A1c goal of less than 8.0% (HCC) TAKE ONE TABLET BY MOUTH TWICE A DAY WITH MORNING AND EVENING MEALS 180 Tablet 1 11/10/2024 8:12 AM EST 11/09/19 25 026 Active traZODone HCl 100 MG Oral Tablet (Desyrel)Indicatio ns:Insomnia, unspecified type Take 1 Tablet by mouth at bedtime. 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 03/25/2020 Overview (09/08/2024): Latest Reference Range & Units 04/08/23 09:21 10/07/23 00:00 04/03/24 11:16 EGFR >=60 mL/min 71 56.3 (E) 61 (E): External lab result Type 2 diabetes mellitus wit h hemoglobin A1c goal of less than 8.0% 07/18/2018 Dyslipidemia, goal LDL below 70 01/19/2018 Hemidiaphragm paralysis 06/23/2017 Frequent PVCs 01/18/2017 Vitamin D deficiency 06/08/2013 CHR ISCHEMIC HRT DIS NOS 04/08/2001 HTN, goal below 140/90 documented as of this encounter (statuses as of 12/13/2024) Resolved Problems Problem Noted Date Diagnosed Date Resolved Date CAD in [place] artery 03/28/2021 024 Dysfunction of eustachian tube 12/31/2015 06/23/2017 Allergic rhinitis 12/31/2015 11/01/2018 Biceps tendon rupture 05/14/20112018 Type 2 diabetes mellitus wit h hemoglobin A1c goal of less than 7.0% 06/15/2010 07/18/2018 Overview (01/07/2016): ICD-10 update of inactive term Retinal edema 11/19/2009 06/23/2017 Dyslipidemia, goal LDL below 100 08/22/2009 01/19/2018 Overview (08/22/2009): Per Lipid Taxonomy. Unilateral inguinal hernia 01/26/2008 1 ADVANCE DIRECTIVE INFORMATION 12/08/2007 03/14/2019 Overview (03/18/2005): No, Advance Directive brochure offered , patient declined. Chronic sinusitis 01/04/2007 06/23/2017 Chronic rhinitis 01/04/2007 06/23/2017 Screening for prostate cancer 06/08/2006 11/21/2008 Overview (11/21/2008): Resolved per Screening Diagnosis Protocol #6 Disorder of diaphragm 02/17/20052016 Dermatitis 04/11/2002 06/23/2017 Mixed dyslipidemia 9 Overview (08/22/2009): Per Lipid Taxonomy. DIVERTICULOSIS OF COLON 06/13 Heartburn 06/23/2017 Hepatitis 01/16/2019 documented as of this encounter (statuses as of 12/13/2024) Immunizations Name Administration Dates Next Due COVID-19 mRNA, LNP-s, No Pre serve, 2-Dose Series (Pfizer) 08/04/2021,12/24/2020,11/29/2020 COVID-19, MRNA-LNP, PF, 30 M CG/0.3 mL, 12 YRS AND ABOVE, IM (PFIZER-Comirnaty) 09/08/2024 H1N1 2009 Influenza, IM 10/17/2009 Pneumococcal Conjugate Vacc, 13 Valent (Prevnar) 06/03/2015 RSV Vac., Recomb, Adjuvant, PF,0.5 Ml (Arexvy) 07/27/2024 Seasonal Influenza Vac., MDV , IM, 0.5 mL (Fluzone) 06/03/2015,07/30/2014,06/02/2013,05/30,06/15/2011,07/14/2010,06/17/2009 ,07/30/2008,07/13/2007,07/14/2006 Seasonal Influenza, High Dos e, Trivalent, PF, IM (Fluzone HD) 05/30/2024 Seasonal Influenza, PF, 6 M & above, IM , (FluLaval or Fluzone) 05/27/2020,07/20/2019,06/23/2018,06/2306/23/2018 Seasonal Influenza, Quadriva lent Hd (Fluzone Hd) 06/01/2023,07/07/2022,06/25/2021 Seasonal Influenza, Quadriva lent, No Preserve, IM 06/09/2016 TD, Preservative Free 11/23/2011 TDAP (age 10 and older)(Boostrix) 09/24/2021 Varicella Zoster Vaccine Blake lt (Zostavax) 08/30/2007 Zoster Vaccine Recombinant (Shingrix) 06/23/2018,01/13/2018 documented as of this encounter Social History Tobacco Use Types Packs/Day Years Used Date Smoking Tobacco: Never Passive Smoke Exposure: Never Smokeless Tobacco: Former Chew Quit: 01/11/2005 Comments:Quit Alcohol Use Standard Drinks/Week Comments Yes 0 (1 standard drink = 0.6 oz pur e alcohol) beer0-3/ weekend PHQ-2 Answer Date Recorded PHQ Adult Total Score 0 01/26/2024 Hunger Vital Sign Answer Date Recorded Within the past 12 months, y ou worried that your food would run out before you got the money to buy more. Never true 01/26/20 24 Within the past 12 months, t he food you bought just didn't last and you didn't have money to get more. Never true 01/26/2024 Childcare Answer Date Recorded Do you feel overwhelmed with taking care of a child, family member or friend? No 01/26/2024 Does your family need help f inding childcare? (Household - for ages 0-17 years) Not on file 01/26/2024 Clothing Answer Date Recorded Have you been unable to get clothing when it was really needed? No 01/26/2024 Is your family able to get c lothes or diapers when needed? (Household - for ages 0-17 years) Not on file 01/26/2024 Personal Safety Answer Date Recorded Do you feel unsafe or have concerns for your saf ety? No 01/26/2024 Do you have concerns for you r family's safety? (Household - for ages 0-17 years) Not on file 01/26/2024 Utilities Answer Date Recorded Do you have trouble paying y our heating, water, or electric bill? No 01/26/2024 Is your family able to pay t he heat, water, or electric bill? (Household - for ages 0-17 years) Not on file 01/26/2024 Does your family have access to good internet? (Household - for ages 0-17 years) Not on file 01/26/2024 Employment Status Answer Date Recorded Are you unemployed or without regular income? No 01/26/2024 Does the household have a re gular source of income? (Household - for ages 0-17 years) Not on file 01/26/2024 Social Connections Answer Date Recorded How often do you feel lonely or isolated from th ose around you? Never 01/26/2024 Financial Resource Strain Answer Date R ecorded Do you have any trouble payi ng for your medications, or do you think you might in the future? No 01/26/2024 Does your family have troubl e paying for medicine? (Household - for ages 0-17 years) Not on file 01/26/2024 Transportation Needs Answer Date Record ed READ ONLY Do you have troubl e getting a ride to medical visits or work? Never True 01/26/2024 Does your family have a hard time getting a ride to doctors visits? (Household - for ages 0-17 years) Not on file 01/26/2024 Has lack of transportation k ept you from medical appointments, meetings, work, or from getting things needed for daily living? Check all that apply. (Adult - for ages 18 years and over) Not on file 01/26/2024 Do you (or your family) have trouble finding or paying for a ride (transportation)? (Household - for ages 0-17 years) Not on file 01/26/2024 Housing Stability Answer Date Recorded Do you currently live in a s helter or have no steady place to sleep at night? No 01/26/2024 READ ONLY Do you think you a re at risk of becoming homeless? No 01/26/2024 Does your family worry about paying for your home or becoming homeless? (Household - for ages 0-17 years) Not on file 0 01/26/2024 Are you homeless or worried that you might be in the future? (Adult - for ages 18 years and over) Not on file Are you (or your family) claire eless or worried that you might be in the future? (Household - for ages 0-17 years) Not on file Food Insecurity Answer Date Recorded Do you need food for this week? No 01/26/2024 Are you able to get enough f ood for your family? (Household - for ages 0-17 years) Not on file 01/26/2024 Does your family need food t his week? (Household - for ages 0-17 years) Not on file 01/26/2024 Do you always have enough fo od for your family? (Household - for ages 0-17 years) Not on file 01/26/2024 Food Insecurity Answer Date Recorded Within the past 12 months, y ou worried that your food would run out before you got the money to buy more. Never true 01/26/20 24 Within the past 12 months, t he food you bought just didn't last and you didn't have money to get more. Never true 01/26/2024 Do you need food for this week? No 01/26/2024 Sex and Gender Information Value Date Recorded Sex Assigned at Male 03/14/2019 7:45 AM EDT Legal Sex Male 5:57 AM EST Gender Identity Male 03/14/2019 7:45 AM EDT Sexual Orientation Straight 03/14/2019 7: 45 AM EDT documented as of this encounter Progress Notes * Dorothy Muhammad LPN - 12/13/2024 11:11 AM EDT EKG obtained after identifying patient by name and date of . documented in this encounter Plan of Treatment Upcoming Encounters Date Type Department Care Team (Late st Contact Info) Description 01/10/2025 8:00 AM EDT Office Visit Rheumatology [facility] [address] [place] [phone] Sweta Park CRNP [address] [place] [address] [place] [address] 01/30/2025 8:00 AM EDT Nurse Only Ancillary Department, [address] [place] [address] [place], Nurse Annual Wellness [address] [place] [address] 02/15/2025 2:20 PM EDT Office Visit Dermatology, [address] [place] [address] Aby Canada PA-C [address] [place] [address] [place] [address] 06/12/2025 7:40 AM EDT Office Visit [facility] [place] [address] [place] [phone] Donnie Johnston MD [address] [place] [address] 06/26/2025 8:00 AM EDT Office Visit Cardiology, [facility] [address] [place] [phone] Rohith Wiggins DO [address] [place] [address] Health Maintenance Due Date Last Done Comments Adult Wellness Visit 01/25/2025 01/26/2024, 12/28/2022, 12/25/2021 Depression Screening 01/25/2025 01/26/2024 COVID-19 Vaccine ( season) 2025 09/08/2024, 07/15/2022, 08/04/2021, Additional history exists Zoster Vaccines Completed 06/23/2018, 11/2017, 08/30/2007 Influenza Vaccine (FLU shot) Completed 05/30/2024, 05/30/2024, 06/01/2023, Additional history exists Meningitis B Vaccine (Bexsero/Trumemba) Aged Out No longer eligible based on patient's age to complete this topic documented as of this encounter Medical Devices Implanted Type Area Process Improvement Specialist Device Identifier Shelf Expiration Date Model / Serial / Lot B&L Intraocular Lens Mi60l 20.5d Implanted:Qty: 1 on 05/14/2016 by Yousuf Fischer MD at OR [facility] Left: Eye 12/08/2016 [id number] / / [id number] documented as of this encounter Visit Diagnoses Diagnosis EKG abnormalities- Primary Nonspecific abnormal electrocardiogram (ECG) (EKG) Other cardiac arrhythmia documented in this encounter Advance Directives * Full Code (Latest Code Status on File) Date Activated Date Inactivated Comments 05/14/2016 8:14 AM 05/14/2016 2:01 PM This order ref lects the patients wishes and were consensually agreed upon. Care Teams Hazardous Waste Management Specialist Relationship Specialty Start Date End Date Donnie Johnston MD [address] [place] [address] PCP - General Family Medicine 09/08/24 documented as of this encounter
--- OUTSIDE RECORDS SUMMARY | 2024-12-16 19:31 | External Medical Summary | Summary of Care ---
Author Name Unknown Organization [facility] Address [address] [place] [address] Phone [phone] Care Team Providers Care Cellophaner Name Role Phone Donnie Johnston MD Primary Care Provider [phone] Reason for Visit * Reason Onset Date Comments Test Results 12/16/2024 Encounter Details Date Type Department Care Team (Late st Contact Info) Description 12/16/2024 Telephone [facility] [address] [place] [address] Donnie Johnston MD [address] [place] [address] Test Results Allergies Active Allergy Reactions Criticality Noted Date Comments Nitrofuran Derivatives 02/17/1999 macrodantin Penicillins Hives 02/17/1999 Sulfa Antibiotics 02/17/1999 rash Trimethoprim 10/24/2019 documented as of this encounter (statuses as of 12/16/2024) Medications DAILY MULTIVITAMIN PO TABS 1 daily [...] EDT 06/27/20 24 Active OneTouch Delica Plus [id number] ns:Type 2 diabetes mellitus with hemoglobin A1c goal of less than 8.0% ([facility]) Use to check blood sugar 3 times daily 300 Each 3 07/27/2024 12:22 PM EST 07/26/20 24 Active OneTouch Verio In Vitro Strip (Glucose Blood)Indications: Type 2 diabetes mellitus with hemoglobin A1c goal of less than 8.0% ([facility]) USE TO CHECK GLUCOSE THREE TIMES DAILY [...] 90 Tablet 1 12/09/2024 10:11 AM EDT 09/14/19 Active Additional Information Patient not taking.Reported on 12/01/2024 cycloSPORINE 0.05 % Ophthalmic Emulsion (Restasis) instill one drop into both eyes twice daily 180 Each 1 10/20/2024 1:44 PM EST 09/20/19 25 Active Metoprolol Succinate ER 100 MG Oral Tablet Extended Release 24 Hour (toPROL XL)Indications:Chr onic coronary artery disease TAKE ONE TABLET BY MOUTH EVERY MORNING 100 Tablet 10/07/2024 10:29 AM EST 10/05/19 026 Active Rosuvastatin Calcium 10 MG Oral [...] as of this encounter (statuses as of 12/16/2024) Active Problems Problem Noted Date Diagnosed Date Stage 3 chronic kidney disease 12/01/2024 Systolic heart failure 11/07/2024 Primary osteoarthritis of both shoulders 024 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 Atopic dermatitis 10/11/2023 Hypertension in stage 2 line lead nina 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 [...] as of this encounter (statuses as of 12/16/2024) Resolved Problems Problem Noted Date Diagnosed Date Resolved Date CAD in [place] artery 03/28/2021 024 Dysfunction of eustachian tube [...] as of this encounter (statuses as of 12/16/2024) Immunizations Name Administration Dates Next Due COVID-19 mRNA, LNP-s, No Pre serve, 2-Dose Series ([employer]) 08/04/2021,12/24/2020,11/29/2020 COVID-19, MRNA-LNP, PF, 30 M CG/0.3 mL, 12 YRS AND ABOVE, IM ([facility]) 09/08/2024 H1N1 2009 Influenza, IM 10/17/2009 Pneumococcal [...] AM EDT documented as of this encounter Miscellaneous Notes * Telephone Encounter - Donnie Johnston MD - 12/16/2024 9:40 AM EDT EKG confirms atrial fib (controlled rate) as was noted on recent echocardiogram. I would suggest hestart anticoagulation with Eliquis 2.5mg twice daily. He already is on Metoprolol for ischemic heart disease. Will make sure cardiology (Dr Wiggins) OK with plan, Pt has cardiology apt with Dr Wiggins 08/07. documented in this encounter Plan of Treatment Upcoming Encounters Date Type Department Care Team (Late st Contact Info) Description 01/10/2025 8:00 AM EDT Office Visit Rheumatology [facility] [address] [place] [phone] Sweta Park CRNP [address] [facility] [place] [address] 01/30/2025 8:00 AM EDT Nurse Only Ancillary Department, [address] [place] [phone] Neda, Nurse Annual Wellness [address] [place] [address] 02/15/2025 2:20 PM EDT Office Visit Dermatology, [address] [place] [phone] Aby [place] PA-C [address] [place] [address] [place] [address] 06/12/2025 7:40 AM EDT Office Visit Family Practice, [address] [place] [phone] Donnie Johnston MD [address] [place] [address] 06/26/2025 8:00 AM EDT Office Visit Cardiology, [facility] [address] [place] [phone] Rohith Wiggins, [address] [place] [address] Health Maintenance Due Date Last Done Comments [...] this encounter Medical Devices Implanted Type Area Steam Station Supervisor Device Identifier Shelf Expiration Date Model / Serial / Lot B&L Intraocular Lens Mi60l 20.5d Implanted:Qty: 1 on 05/14/2016 by Yousuf Fischer MD at [facility] Left: Eye 12/08/2016 [id number] / / [id number] documented as of this encounter Advance Directives * Full Code (Latest Code Status on File) Date Activated Date Inactivated Comments 05/14/2016 8:14 AM 05/14/2016 2:01 PM This order ref lects the patients wishes and were consensually agreed upon. Care Teams Cellophaner Relationship Specialty Start Date End Date Donnie Johnston MD [address] [place] [address] PCP - General Family Medicine 09/08/24 documented as of this encounter
--- OUTSIDE RECORDS SUMMARY | 2024-12-16 19:32 | External Medical Summary | Summary of Care ---
Author Name Unknown Organization [facility] Address [address] [place] [address] Phone [phone] Care Team Providers Care Manager Mission Name Role Phone Donnie Johnston MD Primary Care Provider [phone] Reason for Visit * Reason Onset Date Comments Scheduling 12/09/2024 Encounter Details Date Type Department Care Team (Late st Contact Info) Description 12/09/2024 Telephone [facility] [address] [place] [address] Donnie Johnston MD [address] [place] [address] Scheduling Allergies Active Allergy Reactions Criticality Noted Date Comments Nitrofuran Derivatives 02/17/1999 macrodantin Penicillins Hives 02/17/1999 Sulfa Antibiotics 02/17/1999 rash Trimethoprim 10/24/2019 documented as of this encounter (statuses as of 12/11/2024) Medications DAILY MULTIVITAMIN PO TABS 1 daily [...] EDT 06/27/20 24 Active OneTouch Delica Plus [id number] ns:Type 2 diabetes mellitus with hemoglobin A1c goal of less than 8.0% ([facility]) Use to check blood sugar 3 times [...] as of this encounter (statuses as of 12/11/2024) Active Problems Problem Noted Date Diagnosed Date Stage 3 chronic kidney disease 12/01/2024 Systolic heart failure 11/07/2024 Primary osteoarthritis of both shoulders 024 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 Atopic dermatitis 10/11/2023 Hypertension in stage 2 library aide nina 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 [...] as of this encounter (statuses as of 12/11/2024) Resolved Problems Problem Noted Date Diagnosed Date Resolved Date CAD in [place] artery 03/28/2021 024 Dysfunction of eustachian tube [...] as of this encounter (statuses as of 12/11/2024) Immunizations Name Administration Dates Next Due COVID-19 mRNA, LNP-s, No Pre serve, 2-Dose Series (Pfizer) 08/04/2021,12/24/2020,11/29/2020 COVID-19, MRNA-LNP, PF, 30 M CG/0.3 mL, 12 YRS AND ABOVE, IM (PFIZER-Comirnat) 09/08/2024 H1N1 2009 Influenza, IM 10/17/2009 Pneumococcal Conjugate Vacc, 13 Valent (Prevnar) 06/03/2015 Pneumococcal Polysaccharide PPV23 (Pneumovax) 08/03/2002,05/04/1990 RSV Vac., Recomb, Adjuvant, PF,0.5 Ml (Arexvy) 07/27/2024 Seasonal Influenza Vac., MDV , IM, 0.5 mL (Fluzone) 06/03/2015,07/30/2014,06/02/2013,05/14,06/15/2011,07/14/2010,06/17/20 09,07/30/2008,07/13/2007,07/14/2006,1 ,07/02/2004,07/24/2003,07/04,08/15/2001,10/13/2000, 9 Seasonal Influenza Virus Vac cine, Unspecified Formulation 07/15/1998 Seasonal Influenza, High Dos e, Trivalent, PF, IM (Fluzone HD) 05/30/2024 Seasonal Influenza, PF, 6 M & above, IM , (FluLaval or Fluzone) 05/27/2020,07/20/2019,06/23/2018,06/1306/23/2018 Seasonal Influenza, Quadriva lent Hd (Fluzone Hd) 06/01/2023,07/07/2022,06/25/2021 Seasonal Influenza, Quadriva lent, No Preserve, IM 06/09/2016 TD - Tetanus/Diptheria (ADULT) 04/11/2002 TD, Preservative [...] money to buy more. Never true 01/26/20 Within the past 12 months, t he [...] encounter Miscellaneous Notes * Telephone Encounter - Jessica Watkins LPN - 12/11/2024 1:30 PM EDT Spoke with pt and made aware of message below. Pt stated understanding and was transferred to scheduling to make a nurse visit. Please call pt to schedule nurse visit for EKG Thanks * Telephone Encounter - Donnie Johnston MD - 12/09/2024 9:34 AM EDT Notify Pt: Abnormal rhythm suspected when he had echocardiogram recently. Need for Joseph to come in for nurse visit for EKG. Ordered documented in this encounter Plan of Treatment Upcoming Encounters Date Type Department Care Team (Late st Contact Info) Description 12/13/2024 11:00 AM EDT Nurse Only Ancillary Department, [address] [place] [address] Neda Nurse [address] [place] [address] 01/10/2025 8:00 AM EDT Office Visit Rheumatology [facility] [address] [place] [phone] Sweta Park CRNP [facility] [address] 01/30/2025 8:00 AM EDT Nurse Only Ancillary Department, Neda [address] [place] [address] Neda, Nurse Annual Wellness [address] [place] [address] 02/15/2025 2:20 PM EDT Office Visit Dermatology, [place] [address] Aby Canada PA-C [address] [place] [address] [place] [address] 06/12/2025 7:40 AM EDT Office Visit Family Practice, Neda Brasher [address] [place] [address] Donnie Johnston MD [address] [facility] [place] [address] 06/26/2025 8:00 AM EDT Office Visit Cardiology, [facility] [address] [place] [phone] Rohith Wiggins DO [address] [place] [address] Scheduled Orders Name Type Priority Associated Diagnoses Orde r Schedule EKG EKG Routine Other cardiac arrhythmia Expected: 12/10/2024 (Approximate), Expires: 01/09/2025 Health Maintenance Due Date Last Done Comments [...] this encounter Medical Devices Implanted Type Area Gre Instructor Device Identifier Shelf Expiration Date Model / Serial / Lot B&L Intraocular Lens Mi60l 20.5d Implanted:Qty: 1 on 05/14/2016 by Yousuf Fischer MD at OR [facility] Left: Eye 12/08/2016 [id number] / / [id number] documented as of this encounter Visit Diagnoses Diagnosis Other cardiac arrhythmia- Primary documented in this encounter Advance Directives * Full Code (Latest Code Status on File) Date Activated Date Inactivated Comments 05/14/2016 8:14 AM 05/14/2016 2:01 PM This order ref lects the patients wishes and were consensually agreed upon. Care Teams Manager Mission Relationship Specialty Start Date End Date Donnie Johnston MD [address] [place] [address] PCP - General Family Medicine 09/08/24 documented as of this encounter
--- OUTSIDE RECORDS SUMMARY | 2024-12-16 19:32 | External Medical Summary | Summary of Care ---
Author Name Unknown Organization [facility] Address [address] [place] [address] Phone [phone] Care Team Providers Care Director Equipment Name Role Phone Donnie Johnston MD Primary Care Provider Reason for Visit * Reason Onset Date Comments Scheduling 12/09/2024 Encounter Details Date Type Department Care Team (Late st Contact Info) Description 12/09/[address] [facility] [address] [place] [address] Donnie Johnston MD [address] [place] [address] Scheduling Allergies Active Allergy Reactions Criticality Noted [...] EDT 06/27/20 24 Active OneTouch Delica Plus [id number] ns:Type 2 diabetes mellitus with hemoglobin A1c goal of less than 8.0% ([facility]) Use to check blood sugar 3 times [...] Atopic dermatitis 10/11/2023 Hypertension in stage 2 chrome polisher nina 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 [...] Date Diagnosed Date Resolved Date CAD in [place] artery 03/28/2021 024 Dysfunction of eustachian tube [...] [place] [address] Neda Nurse [address] [place] [address] 01/10/2025 8:00 AM EDT Office Visit Rheumatology [facility] [address] [place] [phone] Sweta Park CRNP [facility] [address] 01/30/2025 8:00 AM EDT Nurse Only Ancillary Department, Neda [address]manlizzy [address] [place] [address] Neda, Nurse Annual Wellness [address] [place] [address] 02/15/2025 2:20 PM EDT Office Visit Dermatology, [place] [address] Aby Canada PA-C [address] [place] [address] [place] [address] 06/12/2025 7:40 AM EDT Office Visit Family Practice, Neda Brasher [address] [place] [address] Donnie Johnston MD [address] [facility] [place] [address] 06/26/2025 8:00 AM EDT Office Visit Cardiology, [facility] [address] [place] [phone] Rohith Wiggins DO [address] [place] [address] Scheduled Orders Name Type Priority Associated Diagnoses [...] this encounter Medical Devices Implanted Type Area Issuing Operator Device Identifier Shelf Expiration Date Model / Serial / Lot B&L Intraocular Lens Mi60l 20.5d Implanted:Qty: 1 on 05/14/2016 by Yousuf Fischer MD at OR [facility] Left: Eye 12/08/2016 [id number] / / [id number] documented as of this encounter Visit Diagnoses Diagnosis Other cardiac arrhythmia- Primary documented in this encounter Advance Directives * Full Code (Latest Code Status on File) Date Activated Date Inactivated Comments 05/14/2016 8:14 AM 05/14/2016 2:01 PM This order ref lects the patients wishes and were consensually agreed upon. Care Teams Director Equipment Relationship Specialty Start Date End Date Donnie Johsnton MD [address] [place] [address] PCP - General Family Medicine 09/08/24 documented as of this encounter
--- OUTSIDE RECORDS SUMMARY | 2024-12-16 19:32 | External Medical Summary | Summary of Care ---
Author Name Unknown Organization [facility] Address [address] [place] [address] Phone [phone] Care Team Providers Care Senior Geotechnical Engineer Name Role Phone Donnie Johnston MD Primary Care Provider [phone] Encounter Details Date Type Department Care Team (Late st Contact Info) Description 12/11/2024 Orders Only Outcomes Research Department [address] [place], [place] [id number] Rhonda Sharma CHRA MyCode Research Other*[id number] Allergies Active Allergy Reactions Criticality Noted Date [...] EDT 06/27/20 24 Active OneTouch Delica Plus [id number] ns:Type 2 diabetes mellitus with hemoglobin A1c goal of less than 8.0% ([facility]) Use to check blood sugar [...] Tablet 1 12/09/2024 10:11 AM EDT 09/14/19 25 Active Additional Information Patient not taking.Reported [...] Atopic dermatitis 10/11/2023 Hypertension in stage 2 self pay collector nina 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 [...] Date Diagnosed Date Resolved Date CAD in [place] artery 03/28/2021 024 Dysfunction of eustachian tube [...] AM EDT documented as of this encounter Plan of Treatment Upcoming Encounters Date Type Department Care Team (Late st Contact Info) Description 01/10/2025 8:00 AM EDT Office Visit Rheumatology [facility] [address] [place] [phone] Sweta Park CRNP [address] [place] [address] [place] [address] 01/30/2025 8:00 AM EDT Nurse Only Ancillary Department, Neda [address] [place] [address] Neda, Nurse Annual Wellness [address] [place] [address] 02/15/2025 2:20 PM EDT Office Visit Dermatology, [address] [place] [address] Aby [place] PALove [address] [place] [address] [place] [address] 06/12/2025 7:40 AM EDT Office Visit Family Practice, Neda [address]her [address] [place] [address] Donnie Johnston MD [address] [place] [address] 06/26/2025 8:00 AM EDT Office Visit Cardiology, [facility] [address] [place] [phone] Rohith Wiggins, DO [address] [place] [address] Scheduled Orders Name Type Priority Associated Diagnoses Orde r Schedule MYCODE SUBSEQUENT ADULT Lab Routine MyCode Research Other*[id number] Every 6 Months for 2 Occurrences starting 12/11/2024 until 12/31/2025 Health Maintenance Due Date Last Done Comments [...] this encounter Medical Devices Implanted Type Area Distribution Sales Representative Device Identifier Shelf Expiration Date Model / Serial / Lot B&L Intraocular Lens Mi60l 20.5d Implanted:Qty: 1 on 05/14/2016 by Yousuf Fischer MD at OR [facility] Left: Eye 12/08/2016 [id number] / / [id number] documented as of this encounter Visit Diagnoses Diagnosis MyCode Research Other*[id number] documented in this encounter Advance Directives * Full Code (Latest Code Status on File) Date Activated Date Inactivated Comments 05/14/2016 8:14 AM 05/14/2016 2:01 PM This order ref lects the patients wishes and were consensually agreed upon. Care Teams Senior Geotechnical Engineer Relationship Specialty Start Date End Date Donnie Johnston MD [address] [place] [address] PCP - General Family Medicine 09/08/24 documented as of this encounter
--- OUTSIDE RECORDS SUMMARY | 2024-12-16 19:32 | External Medical Summary | Summary of Care ---
Author Name Unknown Organization [facility] Address [address] [place] [address] Phone [phone] Care Team Providers Care Spinning Lathe Operator Automatic Name Role Phone Donnie Johnston MD Primary Care Provider [phone] Reason for Visit * Reason Onset Date Comments Medication Question 12/08/2024 Encounter Details Date Type Department Care Team (Late st Contact Info) Description 12/08/2024 Telephone [facility] [address] [place] [address] Donnie Johnston MD [address] [place] [address] Medication Question Allergies Active Allergy Reactions Criticality Noted Date Comments Nitrofuran Derivatives 02/17/1999 macrodantin Penicillins Hives 02/17/1999 Sulfa Antibiotics 02/17/1999 rash Trimethoprim 10/24/2019 documented as of this encounter (statuses as of 12/08/2024) Medications DAILY MULTIVITAMIN PO TABS 1 daily [...] eyes twice a day 180 Each 1 4 9:43 AM EDT 09/08/20 23 Active Docusate Sodium 100 MG Oral Capsule (Colace) 2 Capsules. 09/30/19 24 Active OneTouch Verio w/Device Kit Use to check blood sugar daily Dx: E11.9 1 Kit 4 5:32 PM EDT 06/27/20 24 Active OneTouch Delica Plus [id number] ns:Type 2 diabetes mellitus with hemoglobin A1c goal of less than 8.0% ([facility]) Use to check blood sugar 3 times daily 300 Each 3 4 12:22 PM EST 07/26/20 24 Active OneTouch Verio In Vitro Strip (Glucose Blood)Indications: Type 2 diabetes mellitus with hemoglobin A1c goal of less than 8.0% ([facility]) USE TO CHECK GLUCOSE THREE TIMES DAILY 300 Strip 3 4 12:22 PM EST 07/26/20 24 Active Fluticasone Propionate 50 MCG/ACT Nasal Suspension (Flonase)Indicatio ns:Dysfunction of left eustachian tube Administer 2 Sprays into each nostril in the morning. 16 g 1 08/02/20 24 Active cycloSPORINE 0.05 % Ophthalmic Emulsion (Restasis) Instill 1 drop into both eyes twice a day 180 Each 2 4 4:49 PM EST 08/16/20 24 Active Triamcinolone Acetonide 0.5 % External Cream (Aristocort)Indica tions:Rash and nonspecific skin eruption Apply topically to affected area 2 times a day. To rash 30 g 09/08/20 24 Active traMADol HCl 50 MG Oral Tablet (Ultram)Indication s:Primary osteoarthritis of both knees Take 1 Tablet by mouth every 6 hours as needed for moderate Pain 60 Tablet 1 5 2:11 PM EDT 09/11/20 24 Active Diclofenac Sodium 1 % External Gel (Voltaren)Indicati ons:Generalized osteoarthritis Apply 4 grams to affected joints up to 4 times daily as needed 400 g 3 09/12/20 24 Active Colchicine 0.6 MG Oral Tablet Take 1 Tablet by mouth in the morning. 90 Tablet 1 01/04/202 5 11:52 AM EST 09/14/19 25 Active Additional Information Patient not taking.Reported on 12/01/2024 cycloSPORINE 0.05 % Ophthalmic Emulsion (Restasis) instill one drop into both eyes twice daily 180 Each 1 5 1:44 PM EST 09/20/19 25 Active Metoprolol Succinate ER 100 MG Oral Tablet Extended Release 24 Hour (toPROL XL)Indications:Chr onic coronary artery disease TAKE ONE TABLET BY MOUTH EVERY MORNING 100 Tablet 5 10:29 AM EST 10/05/19 25 026 Active Rosuvastatin Calcium 10 MG Oral Tablet (Crestor)Indicatio ns:Dyslipidemia, goal LDL below 100 TAKE ONE TABLET BY MOUTH EVERY DAY 90 Tablet 1 5 2:57 PM EST 10/13/19 25 026 Active [...] Release 1 tab 3 days per week: - Wed 45 Tablet 3 11/07/19 25 Active metFORMIN HCl ER 500 MG Oral Tablet Extended Release 24 Hour (Glucophage XR)Indications:Typ e 2 diabetes mellitus with hemoglobin A1c goal of less than 8.0% ([facility]) TAKE ONE TABLET BY MOUTH TWICE A DAY WITH MORNING AND EVENING MEALS 180 Tablet 1 5 8:12 AM EST 11/09/19 25 026 Active traZODone HCl 100 MG Oral Tablet (Desyrel)Indicatio ns:Insomnia, unspecified type Take 1 Tablet by mouth at bedtime. 30 Tablet 5 12/09/19 25 Active traZODone HCl 50 MG Oral Tablet (Desyrel)Indicatio ns:Insomnia, unspecified type Take 1 Tablet by mouth at bedtime. 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 Atopic dermatitis 10/11/2023 Hypertension in stage 2 claim trainee nina 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 [...] as of this encounter (statuses as of 12/08/2024) Resolved Problems Problem Noted Date Diagnosed Date Resolved Date CAD in [place] artery 03/28/2021 024 Dysfunction of eustachian tube [...] as of this encounter (statuses as of 12/08/2024) Immunizations Name Administration Dates Next Due COVID-19 mRNA, LNP-s, No Pre serve, 2-Dose Series ([place]) 08/04/2021,12/24/2020,11/29/2020 COVID-19, MRNA-LNP, PF, 30 M CG/0.3 [...] encounter Miscellaneous Notes * Addendum Note - Jen Reynoso RPh - 12/08/2024 9:31 AM EDTAddended by: JEN REYNOSO on: 12/08/2024 09:31 AM Modules accepted: Orders * Telephone Encounter - Jen Reynoso RPh - 12/08/2024 9:28 AM EDT Pt requests high priority due to being completely out of the medication. Pt calling in to request a dose change on their traZODone HCl 50 MG Oral Tablet (Desyrel) . Current dose: 50mg Requested dose: 100mg Reason for request: Current dose not effective Per 12/01 OV note: Insomnia-increase trazodone from 50-100 mg a day. Rx sent to pharmacy Jen Ibrahim PharmD Clinical Pharmacist [facility] [phone] 12/08/2024 9:30 AM * Telephone Encounter - Clay Corona fly fishing guide - 12/08/2024 9:09 AM EDT Pt requests high priority due to being completely out of the medication. Pt calling in to request a dose change on their traZODone HCl 50 MG Oral Tablet (Desyrel) . Current dose: 50mg Requested dose: 100mg Reason for request: Current dose not effective Preferred pharmacy: [id number] Patient unwilling to speak with pharmacist at this time. Routing to pharmacist pool to advise. Pt. States that Dr. Johnston had confirmed the change from 50mg to 100mg in a prior visit. No such prescription has been ordered. Please Advise. Thank you, Clay Corona Sustainable Communities Designer I [facility] 12/08/2024,9:12 AM documented in this encounter Plan of Treatment Upcoming Encounters Date Type Department Care Team (Late st Contact Info) Description 01/10/2025 8:00 AM EDT Office Visit Rheumatology [facility] [address] [place] [phone] Sweta Park CRNP [address] [facility] [place] [address] 01/30/2025 8:00 AM EDT Nurse Only Ancillary Department, Neda [address] [place] [phone] Neda, Nurse Annual Wellness [address] [place] [address] 02/15/2025 2:20 PM EDT Office Visit Dermatology, [address] [place] [phone] Aby Canada PA-C [address] [place] [address] [place] [address] 06/12/2025 7:40 AM EDT Office Visit Family Practice, Neda Brasher [address] [place] [phone] Donnie Johnston MD [address] [place] [address] 06/26/2025 8:00 AM EDT Office Visit Cardiology, [facility] [address] [place] [phone] Rohith Wiggins DO [address] [place] [address] Health Maintenance Due Date Last Done Comments [...] this encounter Medical Devices Implanted Type Area Figurine Maker Device Identifier Shelf Expiration Date Model / Serial / Lot B&L Intraocular Lens Mi60l 20.5d Implanted:Qty: 1 on 05/14/2016 by Yousuf Fischer MD at OR [facility] Left: Eye 12/08/2016 [id number] / / [id number] documented as of this encounter Visit Diagnoses Diagnosis Insomnia, unspecified type documented in this encounter Advance Directives * Full Code (Latest Code Status on File) Date Activated Date Inactivated Comments 05/14/2016 8:14 AM 05/14/2016 2:01 PM This order ref lects the patients wishes and were consensually agreed upon. Care Teams Spinning Lathe Operator Automatic Relationship Specialty Start Date End Date Donnie Johnston MD [address] [facility] [place] [address] PCP - General Family Medicine 09/08/24 documented as of this encounter
--- OUTSIDE RECORDS SUMMARY | 2024-12-16 19:32 | External Medical Summary | Summary of Care ---
Author Name Unknown Organization [facility] Address [address] [place] [address] Phone [phone] Care Team Providers Care Health Information Systems Technician Name Role Phone Donnie Johnston MD Primary Care Provider [phone] Reason for Visit * Reason Comments Follow Up Patient is here toda y for a follow up. Patient would like to discuss his Lisinopril, states his Blood sugar has jumped the last two mornings since taking the lisinopril and Rosuvastatin together. Encounter Details Date Type Department Care Team (Late st Contact Info) Description 12/01/2024 7:40 AM EDT Office Visit [facility] [address] [place] [address] Donnie Johnston MD [address] [place], [place] [phone] Type 2 diabetes mellitus with hemoglobin A1c goal of less than 8.0% ([facility])*; Hypertension in stage 2 chronic 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 diabetes mellitus ([facility]); Stage 3 chronic kidney disease, unspecified whether stage 3a or 3b CKD ([facility]); Dyslipidemia, goal LDL below 70; Abnormal CBC Allergies Active Allergy Reactions Criticality Noted Date Comments Nitrofuran Derivatives 02/17/1999 macrodantin Penicillins Hives 02/17/1999 Sulfa Antibiotics 02/17/1999 rash Trimethoprim 10/24/2019 documented as of this encounter (statuses as of 12/01/2024) Medications DAILY MULTIVITAMIN PO TABS 1 daily [...] Capsule (Colace) 2 Capsules. 09/30/19 24 Active traZODone HCl 50 MG Oral Tablet (Desyrel)Indicatio ns:Insomnia, unspecified type Take 1 Tablet by mouth at bedtime. 30 Tablet 5 06/14/20 24 Active OneTouch Verio w/Device Kit Use to check blood sugar daily Dx: E11.9 1 Kit 06/27/2024 5:32 PM EDT 06/27/20 24 Active OneTouch Delica Plus [id number] ns:Type 2 diabetes mellitus with hemoglobin A1c goal of less than 8.0% ([facility]) Use to check blood sugar 3 times daily 300 Each 3 07/27/2024 12:22 PM EST 07/26/20 24 Active OneTouch Verio In Vitro Strip (Glucose Blood)Indications: Type 2 diabetes mellitus with hemoglobin A1c goal of less than 8.0% ([facility]) USE TO CHECK GLUCOSE THREE [...] mouth in the morning. 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 Atopic dermatitis 10/11/2023 Hypertension in stage 2 payment poster nina 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 [...] as of this encounter (statuses as of 12/01/2024) Resolved Problems Problem Noted Date Diagnosed Date Resolved Date CAD in [place] artery 03/28/2021 024 Dysfunction of eustachian tube [...] as of this encounter (statuses as of 12/01/2024) Immunizations Name Administration Dates Next Due COVID-19 [...] AM EDT documented as of this encounter Last Filed Vital Signs Vital Sign Reading Time Taken Comments Blood Pressure 130/68 12/01/2024 7:35 AM EDT Pulse 115 12/01/2024 7:35 AM EDT Temperature 35.8 °C (96.5 °F) 12/01/2024 7:35 AM ED T Respiratory Rate 18 12/01/2024 7:35 AM EDT Oxygen Saturation 98% 12/01/2024 7:35 AM EDT Inhaled Oxygen Concentration - - Weight 68 kg (150 lb) 12/01/2024 7:35 AM EDT Height 162.6 cm (5' 4") 12/01/2024 7:35 AM EDT Body Mass Index 25.75 12/01/2024 7:35 AM EDT documented in this encounter Progress Notes * Donnie Johnston MD - 12/01/2024 7:54 AM EDT Subjective: Sarah Garcia is a 89 year old male. Chief Complaint Patient presents with Follow Up Patient is here today for a follow up. Patient would like to discuss his Lisinopril, states his Blood sugar has jumped the last two mornings since taking the lisinopril and Rosuvastatin together. HPI: 89-year-old seen today as a routine six-month recheck but also in follow-up after recent injury. About 3 weeks ago he had a fall down his basement steps. As he recalls he was reaching for the door knob at the top of the steps in missed the doorknob and fell. He does not recall exactly how he fell but he thinks that was onto his left side. Ultimately he was able to get himself up and call for family help and transported to [facility] ER. Evaluation there showed that he had injury to his left knee. Had a good bit of bruising elsewhere but that all has for the most part cleared up. He had follow-up with [facility]. Had an MRI of the knee which showed a small fracture what sounds like the internal aspect of the knee. May have been a tibial plateau fracture. I do not have details in that regard. He is wearing a full knee immobilizer with hinges. He is able to bear weight. He is certain to get up move about stands more so than the 1st week after injury. They told him to use Tylenol for discomfort but he does not like to use more than a 1000 mg a day. His biggest problem is in has been even before the injury, difficulty with sleep. He currently is on trazodone 50 mg a day and get help some. He also takes a 650 mg of Tylenol with that at nighttime. He has not tried higher dose oftrazodone. He does continue follow with Rheumatology dating back to a diagnosis of PMR. He is not on prednisone. He had a sed rate recently of 35. Although that is slightly elevated his prior sed rate done 3 months ago was 60. He also follows with Cardiology in has a routine echocardiogram coming up i later this month primarily looking at overall systolic function. Last 2 warnings his blood sugars were elevated compared to his usual less than 120 in the morning. These blood sugars were still less than 150 he questions whether might be related to his switching is lisinopril taking it at nighttime I told him though that if there was any relationship at all. 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 60 Cap 5 Probiotic Blend Oral Capsule Take by mouth. cycloSPORINE 0.05 % Ophthalmic Emulsion (Restasis) instill 1 drop into both eyes twice a day 180 Each 1 Docusate Sodium 100 MG Oral Capsule (Colace) 2 Capsules. traZODone HCl 50 MG Oral Tablet (Desyrel) Take 1 Tablet by mouth at bedtime. 30 Tablet 5 [employer] Verio w/Device Kit Use to check blood sugar daily Dx: E11.9 1 Kit 0 Pure[employer] Delica Plus [id number] Use to check blood sugar 3 times daily 300 Each 3 SenscientTouch Verio In Vitro Strip (Glucose Blood) USE TO CHECK GLUCOSE THREE TIMES DAILY 300 Strip 3 Fluticasone Propionate 50 MCG/ACT Nasal Suspension (Flonase) Administer 2 Sprays into each nostril in the morning. 16 g 1 cycloSPORINE 0.05 % Ophthalmic Emulsion (Restasis) Instill 1 drop into both eyes twice a day 180 Each 2 Triamcinolone Acetonide 0.5 % External Cream (Aristocort) Apply topically to affected area 2 times a day. To rash 30 g 0 traMADol HCl 50 MG Oral Tablet (Ultram) Take 1 Tablet by mouth every 6 hours as needed for moderatePain 60 Tablet 1 Diclofenac Sodium 1 % External Gel (Voltaren) Apply 4 grams to affected joints up to 4 times daily as needed 400 g 3 cycloSPORINE 0.05 % Ophthalmic Emulsion (Restasis) instill one drop into both eyes twice daily 180 Each 1 Metoprolol Succinate ER 100 MG Oral Tablet Extended Release 24 Hour (toPROL XL) TAKE ONE TABLET BY MOUTH EVERY MORNING 100 Tablet 0 Rosuvastatin Calcium 10 MG Oral Tablet (Crestor) TAKE ONE TABLET BY MOUTH EVERY DAY 90 Tablet 1 Lisinopril 10 MG Oral Tablet (Prinivil) Take 1 Tablet by mouth every evening. 90 Tablet 3 Furosemide 20 MG Oral Tablet (Lasix) 1 tab 3 days per week in AM : Wed 45 Tablet 3 Potassium Chloride Brooke ER 10 MEQ Oral Tablet Extended Release 1 tab 3 days per week: Wed-Wed- Wed 45 Tablet 3 metFORMIN HCl ER 500 MG Oral Tablet Extended Release 24 Hour (Glucophage XR) TAKE ONE TABLET BY MOUTH TWICE A DAY WITH MORNING AND EVENING MEALS 180 Tablet 1 Colchicine 0.6 MG Oral Tablet Take 1 Tablet by mouth in the morning. (Patient not taking: Reported on 10/04/2024) 90 Tablet 1 No current facility-administered medications for this visit. Review of patient's allergies indicates: Allergen Reactions Nitrofuran Derivatives macrodantin Penicillins Hives Sulfa Antibiotics rash Trimethoprim Objective: BP 130/68 (BP Site: Left Arm, BP Position: Sitting, BP Cuff Size: Regular) | Pulse 115 | Temp 96.5 °F (35.8 °C) (Tympanic) | Resp 18 | Ht 5' 4" (1.626 m) | Wt 150 lb (68 kg) | SpO2 98% | BMI 25.75 kg/m² | BSA 1.75 m² Physical Exam: CONST: alert, pleasant, no acute distress HEAD: normocephalic, atraumatic M'I OROPHARYNX: clear, no swelling or erythema, moist CV: regular rate and rhythm, no murmur CHEST: clear to auscultation bilaterally, no rales or wheezing ABD: soft, non tender, non distended, no masses or hepatosplenomegaly EXT: Full knee immobilizer in place. He also has a thigh-high support stocking on the left leg. I did not appreciate any significant edema at the ankle NEURO: AAOx3, no gross focal deficits, cerebellar signs normal, affect appropriate MENTAL STATUS: no evidence of thought disorder, no delusional thought, no evidence of paranoia, thought is non-tangential. 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 Nochange needed Stage 3 chronic kidney disease, unspecified whether stage 3a or 3b CKD (HCC)- stable per blood work that was just done earlier this month Dyslipidemia, goal LDL below 70 Status post fall with injury to left knee that includes a fracture but the details Um unsure. He will continue follow with Orthopedics. I asked when he is seen again which will be about 4-1/2 weeks have [facility] send me a copy of their note. Insomnia-increase trazodone from 50-100 mg a day. Diabetes mellitus-check hemoglobin A1c. I do not think that were going to see any significant change. Abnormal CBC-recent CBC had shown slightly elevated white blood cell count which may have been related prednisone therapy at the time. Will repeat see where he stands. Donnie Johnston MD documented in this encounter Nursing Notes * Fern Garcia LPN - 12/01/2024 7:34 AM EDT The patient has been properly identified by confirmation of name and date of . Chief Complaint Patient presents with Follow Up Patient is here today for a follow up. Patient would like to discuss his Lisinopril, states his Blood sugar has jumped the last two mornings since taking the lisinopril and Rosuvastatin together. documented in this encounter Plan of Treatment Upcoming Encounters Date Type Department Care Team (Late st Contact Info) Description 12/08/2024 7:45 AM EDT Cardiac Studies Cardiac Studies, [address] [place] [phone] 01/10/2025 8:00 AM EDT Office Visit Rheumatology [facility] [address] [place] [phone] Sweta [place] CRNP [address] [facility] [place] [address] 01/30/2025 8:00 AM EDT Nurse Only Ancillary Department, Neda [address] [place] [phone] Neda, Nurse Annual Wellness [address] [place] [address] 02/15/2025 2:20 PM EDT Office Visit Dermatology, [address] [place] [phone] Aby Canada PA-C [address] [place] [address] [place] [address] 06/12/2025 7:40 AM EDT Office Visit Family Practice, [address] [place] [phone] Donnie Johnston MD [address] [place] [address] 06/26/2025 8:00 AM EDT Office Visit Cardiology, [facility] [address] [place] [phone] Rohith Wiggins DO [address] [place] [address] Pending Results Name Type Priority Associated Diagnoses Date /Time HEMOGLOBIN A1C Lab Routine Type 2 diabetes mellitus with hemoglobin A1c goal of less than 8.0% (HCC) 12/01/2024 8:38 AM EDT CBC WITH WBC DIFFERENTIAL Lab Routine Abnormal CBC 12/01/2024 8:38 AM EDT Scheduled Orders Name Type Priority Associated Diagnoses Orde r Schedule HEMOGLOBIN A1C Lab Routine Type 2 diabetes mellitus with hemoglobin A1c goal of less than 8.0% (HCC) Expected: 12/01/2024 (Approximate), Expires: 12/01/2025 CBC WITH WBC DIFFERENTIAL Lab Routine Abnormal CBC Expected: 12/01/2024 (Approximate), Expires: 12/01/2025 Health Maintenance Due Date Last Done Comments [...] this encounter Medical Devices Implanted Type Area Automotive Airconditioning Mechanic Device Identifier Shelf Expiration Date Model / Serial / Lot B&L Intraocular Lens Mi60l 20.5d Implanted:Qty: 1 on 05/14/2016 by Yousuf Fischer MD at [facility] Left: Eye 12/08/2016 [id number] / / [id number] documented as of this encounter Visit Diagnoses Diagnosis Type 2 diabetes mellitus with hemoglobin A1c goal of less than 8.0% (HCC)- Primary Hypertension in 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 Care Teams Health Information Systems Technician Relationship Specialty Start Date End Date Donnie Johnston MD [address] [facility] [place] [address] PCP - General Family Medicine 09/08/24 documented as of this encounter
--- OUTSIDE RECORDS SUMMARY | 2024-12-16 19:32 | External Medical Summary ---
Author Name Unknown Address Unknown Organization [id number]:[facility] - [address] [facility] [address] Laboratory Report Ordering Provider Test Date Status PIOTR [place]ST[place] 12/01/2024 08:38:29 Final Observation Date Value Abnormality Reference (Units ) Status HbA1C 12/01/2024 08:38:29 6.5 Above high normal 4. 0-5.6 (%) Final The use of HbA1c to monitor glycemic status is based on normal hemoglobin and HbA composition. This test should not be used in patients with abnormal hemoglobin that affects the half life of the red blood cell or the in vivo glycation rates. Glucose, estimated average 12/01/2024 08:38:29 140 Above high normal <126 (mg/dL) Garcia howard Performing Location [facility] - [address] [facility] [address]
--- OUTSIDE RECORDS SUMMARY | 2024-12-16 19:32 | External Medical Summary | Summary of Care ---
Author Name Unknown Organization [facility] Address [address] [place] [address] Phone [phone] Care Team Providers Care Pediatric Surgeon Name Role Phone Donnie Johnston MD Primary Care Provider [phone] Reason for Visit * Reason Onset Date Comments Medication Question 12/08/2024 Encounter Details Date Type Department Care Team (Late st Contact Info) Description 12/08/2024 Telephone [facility] [address] [place] [address] Donnie Johnston MD [address] [place] [address] Medication Question Allergies Active Allergy Reactions Criticality [...] EDT 06/27/20 24 Active OneTouch Delica Plus [id number] ns:Type 2 diabetes mellitus with hemoglobin A1c goal of less than 8.0% ([facility]) Use to check blood sugar 3 times daily 300 Each 3 4 12:22 PM EST 07/26/20 24 Active OneTouch Verio In Vitro Strip (Glucose Blood)Indications: Type 2 diabetes mellitus with hemoglobin A1c goal of less than 8.0% ([facility]) USE TO CHECK GLUCOSE THREE [...] Atopic dermatitis 10/11/2023 Hypertension in stage 2 molder foam rubber nina 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 [...] Date Diagnosed Date Resolved Date CAD in [place] artery 03/28/2021 024 Dysfunction of eustachian tube [...] mRNA, LNP-s, No Pre serve, 2-Dose Series (Cignifi) 08/04/2021,12/24/2020,11/29/2020 COVID-19, MRNA-LNP, PF, 30 M CG/0.3 [...] Clinical Pharmacist [facility] ([facility]) [phone] 12/08/2024 9:30 AM * Telephone Encounter - Clay Corona wet end helper - 12/08/2024 9:09 AM EDT Pt requests high priority due to being completely out of the medication. Pt calling in to request a dose change on their traZODone HCl 50 MG Oral Tablet (Desyrel) . Current dose: 50mg Requested dose: 100mg Reason for request: Current dose not effective Preferred pharmacy: [id number] Patient unwilling to speak with pharmacist at this time. Routing to pharmacist pool to advise. Pt. States that Dr. Johnston had confirmed the change from 50mg to 100mg in a prior visit. No such prescription has been ordered. Please Advise. Thank you, Clay Corona Paraffin Machine Operator I [facility] ([facility]) 12/08/2024,9:12 AM documented in this encounter Plan of Treatment Upcoming Encounters Date Type Department Care Team (Late st Contact Info) Description 01/10/2025 8:00 AM EDT Office Visit Rheumatology [facility] [address] [place] [phone] Sweta [place] CRNP [address] [facility] [place] [address] 01/30/2025 8:00 AM EDT Nurse Only Ancillary Department, Neda [address] [place] [phone] Neda, Nurse Annual Wellness [address] [place] [address] 02/15/2025 2:20 PM EDT Office Visit Dermatology, [address] [place] [phone] Aby Canada PA-C [address] [place] [address] [place] [address] 06/12/2025 7:40 AM EDT Office Visit Family Practice, Neda [address] [place] [phone] Donnie Johnston MD [address] [place] [address] 06/26/2025 8:00 AM EDT Office Visit Cardiology, [facility] [address] [place] [phone] Rohith Wiggins DO [address] [place] [address] Health Maintenance Due Date Last Done Comments [...] this encounter Medical Devices Implanted Type Area Analytical Clerk Device Identifier Shelf Expiration Date Model / Serial / Lot B&L Intraocular Lens [id number] 20.5d Implanted:Qty: 1 on 05/14/2016 by Yousuf Fischer MD at [facility] Left: Eye 12/08/2016 [id number] / / [id number] documented as of this encounter Visit Diagnoses Diagnosis Insomnia, unspecified type documented in this encounter Advance Directives * Full Code (Latest Code Status on File) Date Activated Date Inactivated Comments 05/14/2016 8:14 AM 05/14/2016 2:01 PM This order ref lects the patients wishes and were consensually agreed upon. Care Teams Pediatric Surgeon Relationship Specialty Start Date End Date Donnie Johnston MD [address] [facility] [place] [address] PCP - General Family Medicine 09/08/24 documented as of this encounter
--- OUTSIDE RECORDS SUMMARY | 2024-12-16 19:32 | External Medical Summary | Summary of Care ---
Author Name Unknown Organization [facility] Address [address] [place] [address] Phone [phone] Care Team Providers Care Press Feeder Broomcorn Name Role Phone Donnie Johnston MD Primary Care Provider [phone] Reason for Visit * Reason Comments Outpatient Testing Encounter Details Date Type Department Care Team (Late st Contact Info) Description 12/01/2024 8:40 AM EDT [facility] [address] [place] [address] [facility] [address] [place] [address] Type 2 diabetes mellitus with hemoglobin A1c goal of less than 8.0% ([facility]); Abnormal CBC Allergies Active Allergy Reactions Criticality [...] EDT 06/27/20 24 Active OneTouch Delica Plus [id number] ns:Type 2 diabetes mellitus with hemoglobin A1c [...] Atopic dermatitis 10/11/2023 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 [...] Date Diagnosed Date Resolved Date CAD in [place] artery 03/28/2021 024 Dysfunction of eustachian tube [...] AM EDT Cardiac Studies Cardiac Studies, Neda [address] [place] [phone] 01/10/2025 8:00 AM EDT Office Visit Rheumatology [facility] [address] [place] [phone] Sweta Park CRNP [address] [place] [address] [place] [address] 01/30/2025 8:00 AM EDT Nurse Only Ancillary Department, Neda [address] [place] [phone] Neda, Nurse Annual Wellness [address] [place] [address] 02/15/2025 2:20 PM EDT Office Visit Dermatology, [address] [place] [phone] Aby Canada PA-C [address] [place] [address] [place] [address] 06/12/2025 7:40 AM EDT [facility] [place] [address] [place] [phone] Donnie Johnston MD [address] [place] [address] 06/26/2025 8:00 AM EDT Office Visit Cardiology, [facility] [address] [place] [phone] Rohith Wiggins DO [address] [place] [address] Pending Results Name Type Priority Associated Diagnoses Date /Time HEMOGLOBIN A1C Lab Routine Type 2 diabetes mellitus with hemoglobin A1c goal of less than 8.0% ([facility]) 12/01/2024 8:38 AM EDT CBC WITH WBC DIFFERENTIAL Lab Routine Abnormal CBC 12/01/2024 8:38 AM EDT CBC Lab Routine Abnormal CBC 12/01/2024 8:38 AM EDT DIFFERENTIAL, AUTOMATED Lab Routine Abnormal CBC 12/01/2024 8:38 AM EDT Health Maintenance Due Date Last Done Comments Adult Wellness Visit 01/25/2025 01/26/2024, 12/28/2022, 12/25/2021 Depression Screening 01/25/2025 01/26/2024 COVID-19 Vaccine ( season) 2025 09/08/2024, 07/15/2022, 08/04/2021, Additional history exists Zoster Vaccines Completed 06/23/2018, 050 11/2017, 08/30/2007 Influenza Vaccine (FLU shot) Completed 05/30/2024, 05/30/2024, 06/01/2023, Additional history exists Meningitis B Vaccine (Bexsero/Trumemba) Aged Out No longer eligible based on patient's age to complete this topic documented as of this encounter Medical Devices Implanted Type Area Gear Straightener Device Identifier Shelf Expiration Date Model / Serial / Lot B&L Intraocular Lens [id number] 20.5d Implanted:Qty: 1 on 05/14/2016 by Yousuf Fischer MD at OR [facility] Left: Eye 12/08/2016 [id number] / / [id number] documented as of this encounter Visit Diagnoses Diagnosis Type 2 diabetes mellitus with hemoglobin A1c goal of less than 8.0% (HCC) Abnormal CBC Other abnormal blood chemistry documented in this encounter Advance Directives * Full Code (Latest Code Status on File) Date Activated Date Inactivated Comments 05/14/2016 8:14 AM 05/14/2016 2:01 PM This order ref lects the patients wishes and were consensually agreed upon. Care Teams Press Feeder Broomcorn Relationship Specialty Start Date End Date Donnie Johnston MD [address] [facility] [place] [address] PCP - General Family Medicine 09/08/24 documented as of this encounter
--- OUTSIDE RECORDS SUMMARY | 2024-12-16 19:32 | External Medical Summary ---
Author Name Unknown Address Unknown Organization [id number]:[place] [facility] [place] [address] [facility] [address] Laboratory Report Ordering Provider Test Date Status PIOTR HOUSTON 12/01/2024 08:38:29 Final Observation Date Value Abnormality Reference (Units ) Status SYNC LEUKOCYTES IN BLOOD BY AUTOMATED COUNT 12/01/2024 08:38:29 13.33 Above high normal 4.00-10.80 (K/uL) Final Segs 12/01/2024 08:38:29 74.3 40.0-75.0 (%) Final Lymphs % 12/01/2024 08:38:29 9.7 Below low normal 18.0-42.0 (%) Final Monos 12/01/2024 08:38:29 9.4 1.0-11.0 (%) Final Eosinophils 12/01/2024 08:38:29 4.4 0.0-6.0 (%) Final Basos 12/01/2024 08:38:29 1.5 0.0-2.0 (%) Final Immature Granulocyte, Percent 12/01/2024 08:38:29 0.7 0.0-2.0 (%) Final Absolute Segs 12/01/2024 08:38:29 9.91 Above high normal 1.80-7.70 (K/uL) Final Lymphs, absolute 12/01/2024 08:38:29 1.29 1.00-4.80 (K/ul) Final Monos, Abs 12/01/2024 08:38:29 1.25 Above high normal 0.00-1.10 (K/uL) Final Eos, Abs 12/01/2024 08:38:29 0.59 0.00-0.70 (K/uL) Final Basos, Abs 12/01/2024 08:38:29 0.20 0.00-0.20 (K/uL) Final Immature Granulocytes, Number 12/01/2024 08:38:29 0.09 0.00-0.20 (K/uL) Final Performing Location [facility] [place] [facility] [address] [facility] [address]
--- OUTSIDE RECORDS SUMMARY | 2024-12-16 19:32 | External Medical Summary ---
Author Name Unknown Address Unknown Organization K01:LABORATORY [place] [address] [place] [address] Laboratory Report Ordering Provider Test Date Status PIOTR HOUSTON 12/01/2024 08:38:29 Final Observation Date Value Abnormality Reference (Units ) Status WBC, Total 12/01/2024 08:38:29 13.33 Above high normal 4.00-10.80 (K/uL) Final RBC 12/01/2024 08:38:29 4.37 4.50-5.25 (M/uL) Final Hemoglobin 12/01/2024 08:38:29 12.5 Below low normal 14.0-16.8 (g/dL) Final HCT 12/01/2024 08:38:29 41.9 40.0-48.4 (%) Final MCV 12/01/2024 08:38:29 95.9 82.0-99.5 (fL) Final MCH 12/01/2024 08:38:29 28.6 27.0-34.0 (pg) Final MCHC 12/01/2024 08:38:29 29.8 32.0-36.0 (g/dL) Final RDW 12/01/2024 08:38:29 16.9 11.5-15.5 (%) Final Platelets 12/01/2024 08:38:29 519 Above high normal 140-400 (K/uL) Final MPV 12/01/2024 08:38:29 11.3 6.6-11.1 (fL) Final Nucleated erythrocytes/100 leukocytes [Ratio] in Blood by Automated count 12/01/2024 08:38:29 0 <=0 (/100 WBCs) Final Performing Location [facility]ATORY [facility] – [place] - [address] [place] [address]
[2024-12-16 20:15] LABS: Basophils # (auto) 0.14 K/uL (0.00-0.20); Eosinophils # (auto) 0.28 K/uL (0.00-0.50); Eosinophils % (auto) 1.9 %; Hematocrit (blood only) 40.7 % (42.0-52.0); Hemoglobin 12.6 g/dl (14.0-18.0); Immature Granulocytes # (auto) 0.06 K/uL (0.01-0.20); Immature Granulocytes % (auto) 0.4 %; Lymphocytes # (auto) 1.13 K/uL (1.20-3.40); Lymphocytes % (auto) 7.8 %; Mean Corpuscular Hemoglobin 28.1 pg (25.0-34.0); Mean Corpuscular Volume 90.6 fL (80.0-100.0); Mean Platelet Volume 11.5 fL (9.4-12.4); Monocytes # (auto) 1.47 K/uL (0.11-0.59); Monocytes % (auto) 10.2 %; Neutrophils # (auto) 11.32 K/uL (1.40-6.50); Neutrophils % (auto) 78.7 %; Platelet Count 549 K/uL (130-400); RDW Coefficient of Variation 16.4 % (11.5-14.5); RDW Standard Deviation 54.2 fL (36.4-46.3); Red Blood Count 4.49 M/uL (4.70-6.10)
[2024-12-16 20:34] LABS: Alanine Aminotransferase 38 U/L (7-52); Albumin Level 4.4 gm/dl (3.4-5.0); Alkaline Phosphatase 109 U/L (34-104); Anion Gap 7 (3-11); Aspartate Aminotransferase 29 U/L (13-39); BUN Creatinine Ratio 22.7 (10-20); Bilirubin Direct 0.3 mg/dl (0-0.2); Bilirubin,Total 1.3 mg/dl (0.2-1.0); Blood Urea Nitrogen 20 mg/dl (6-23); Calcium 9.5 mg/dl (8.6-10.3); Carbon Dioxide 24 mmol/L (21-32); Chloride 108 mmol/L (98-107); Glucose 172 mg/dl (70-99(Fasting)); Lipase 25 U/L (11-82); Magnesium 1.8 mg/dl (1.7-2.4); Potassium 3.9 mmol/L (3.5-5.1); Sodium 139 mmol/L (136-145); Total Protein 7.3 gm/dl (6.0-8.3)
[2024-12-16 20:40] LABS: Troponin I High Sensitivity 12.7 pg/ml (0-20)
[2024-12-16] MEDS: OPTIRAY 320 125ml IV ONE (20:43)
[2024-12-16 20:44] LABS: INR 1.2 (0.9-1.1); Partial Thromboplastin Ratio 1.3; Partial Thromboplastin Time 35 Seconds (21-31); Prothrombin Time 12.8 Seconds (9.0-12.0)
[2024-12-16 20:57] LABS: Adenovirus PCR Not Detected (NotDetected); Bordetella parapertussis PCR Not Detected (NotDetected); Bordetella pertussis PCR Not Detected (NotDetected); Chlamydia pneumoniae PCR Not Detected (NotDetected); Coronavirus 229E PCR Not Detected (NotDetected); Coronavirus CoV-2 (COVID19)PCR Not Detected (NotDetected); Coronavirus HKU1 PCR Not Detected (NotDetected); Coronavirus NL63 PCR Not Detected (NotDetected); Coronavirus OC43PCR Not Detected (NotDetected); Human Metapneumovirus PCR Not Detected (NotDetected); Influenza A PCR Not Detected (NotDetected); Influenza B PCR Not Detected (NotDetected); Mycoplasma pneumoniae PCR Not Detected (NotDetected); Parainfluenza Virus 1 PCR Not Detected (NotDetected); Parainfluenza Virus 2 PCR Not Detected (NotDetected); Parainfluenza Virus 3 PCR Not Detected (NotDetected); Parainfluenza Virus 4 PCR Not Detected (NotDetected); Respiratory Syncytial VirusPCR Not Detected (NotDetected); Rhinovirus/Enterovirus PCR Not Detected (NotDetected)
--- NOTE | 2024-12-16 21:00 | Emergency Department Note ---
History of Present Illness General Chief Complaint: Nausea Stated Complaint: NAUSEA, SOB Time Seen by Provider: 12/16/24 19:39 History of Present Illness Provider Complaint: abdominal pain Onset (ago): 2 day(s) Pain Consistency: constant Location: diffuse Quality: + cramping Relieved By: + nothing Exacerbated By: + nothing Associated Symptoms: + breathing difficulty; no nausea, no vomiting, no diarrhea, no fever, no chills, no constipation, no dysuria, no hematemesis, no hematochezia, no melena, no hematuria, no anorexia, no headache and no chest pain Home Medications Medication Instructions Recorded Confirmed Type lisinopril 10 mg tablet 10 mg PO QPM 10/24/19 12/16/24 History metformin 500 mg tablet,extended 500 mg PO BIDM 10/24/19 12/16/24 History release 24 hr metoprolol succinate 100 mg 100 mg PO QAM 10/24/19 12/16/24 History tablet,extended release 24 hr multivitamin (Multiple Vitamins 1 tab PO QPM 10/24/19 12/16/24 History tablet) rosuvastatin 10 mg tablet 10 mg PO HS 10/24/19 12/16/24 History cyclosporine 0.05 % eye drops in a 1 drp ophthalmic (eye) BID 09/30/23 12/16/24 History dropperette (Restasis) docusate sodium 100 mg capsule 200 mg PO QPM 09/30/23 12/16/24 History (Stool Softener) aspirin 81 mg chewable tablet 81 mg PO DAILY 12/16/24 12/16/24 History (Aspirin Childrens) cholecalciferol (vitamin D3) 25 25 mcg PO DAILY 12/16/24 12/16/24 History mcg (1,000 unit) tablet (Vitamin D3) furosemide 20 mg tablet 20 mg PO 3XWK 12/16/24 12/16/24 History potassium chloride 10 mEq 10 meq PO 3XWK 12/16/24 12/16/24 History tablet,extended release(part/cryst) trazodone 100 mg tablet 100 mg PO HS 12/16/24 12/16/24 History trazodone 50 mg tablet 50 mg PO Q6 PRN pain,moderate 12/16/24 12/16/24 History Allergies Allergy/AdvReac Type Severity Reaction Status Date / Time nitrofurantoin Allergy Unknown Hives Verified 11/14/24 13:21 Penicillins Allergy Unknown Hives Verified 11/14/24 13:21 Sulfa (Sulfonamide Allergy Unknown Hives Verified 11/14/24 13:21 Antibiotics) sulfamethoxazole Allergy Unknown Hives Verified 11/14/24 13:21 trimethoprim Allergy Unknown Hives Verified 11/14/24 13:21 Past Med/Surg History Problem List (Updated 12/16/24 @ 22:55 by Balbir Sy MD) Pulmonary edema (Acute) Status post right knee replacement Encounter for pre-operative examination DVT prophylaxis Partial small bowel obstruction (Acute) Diarrhea (Acute) Vomiting (Acute) Left knee DJD Right knee DJD CKD (chronic kidney disease) stage 3, GFR 30-59 ml/min CAD (coronary artery disease) s/p 3 vessel CABG 2004 Hypertension (Chronic) Diabetes (Chronic) Glucose stable per patient Medical History Hx of drug rash Per patient- follows with dermatology- said rash he is being treated for stems from initial injections in his knees, 09/2022>currently using dupixent injections- rash improving (no current rash to knees at this at point- surgeon aware) History of COVID-19 2021, PCP test, not hosp; "bad" sinus infection>resolved summer 2022, PCP test, not hosp; "bad" sinus infection>resolved Hx of myocardial infarction "silent" 2004>CABG x3 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 cordero [facility] HLD (hyperlipidemia) Surgical History Hx of cystoscopy History of detached retina repair rt. Hx of cardiac cath 2004, following "silent" heart attack, no stents>triple CABG, [facility] History of colonoscopy with polypectomy Last 03/20/2015 adenomatous polyp History of arthroscopic knee surgery rt. History of cataract extraction rt/lt History of hernia repair Bilateral Family History Mother , 72 No problems noted. 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: No Beliefs That Will Affect Care: None marital status: Current Living Situation: Spouse Current Living Situation Comment: lives with and son Feels Safe at Home: Yes Assistive Devices: Walker Physical Exam 2 Vital Signs: Vital Signs - 24 hr 12/16/24 19:28 12/16/24 19:39 12/16/24 19:48 Temperature 36.5 C Temperature Source Oral Pulse Rate 92 H 84 Pulse Rate from Sp O2 Sensor Pulse Rhythm Regular Pulse Strength Normal Respiratory Rate 20 Respiratory Effort / Characteristics Non-Labored Sponta neous Respiratory Depth Normal Respiratory Patter n Regular Blood Pressure 165/97 H Blood Pressure Mckenzie n 119 Blood Pressure Pos ition Sitting Pulse Oximetry 95 94 Oxygen Delivery Me thod Room Air Room Air Sepsis Recent Feve r Within 48 Hours No Sepsis New/Unexpla ined Change in Men eron Status N/A Sepsis Action Take n by Nursing No Action Required 12/16/24 20:09 12/16/24 21:33 Temperature Temperature Source Pulse Rate 73 75 Pulse Rate from Sp O2 Sensor 80 75 Pulse Rhythm Pulse Strength Respiratory Rate 20 19 Respiratory Effort / Characteristics Respiratory Depth Respiratory Patter n Blood Pressure 160/83 H 149/85 H Blood Pressure Mckenzie n 108 106 Blood Pressure Pos ition Pulse Oximetry 94 91 Oxygen Delivery Me thod Sepsis Recent Feve r Within 48 Hours Sepsis New/Unexpla ined Change in Men eron Status Sepsis Action Take n by Nursing Physical Exam: Physical Exam HENT: Exam performed. -Head: Normocephalic and atraumatic. -Right Ear: External ear normal. No mastoid erythema -Left Ear: External ear normal. No mastoid erythema -Mouth/Throat: The oropharynx is clear and moist. No trismus in the jaw. No dental abscesses or uvula swelling. No oropharyngeal exudate or tonsillar abscesses. EYES: Conjunctivae and EOM are normal.Right eye exhibits no discharge. Left eye exhibits no discharge. No scleral icterus. NECK: Normal range of motion. Neck supple. No JVD present. No tracheal deviation and normal range of motion present. CV: Normal rate, irregular rhythm, normal heart sounds and intact distal pulses. There is no peripheral edema. Palpable radial pulses bue. PULM/CHEST: Effort normal and breath sounds normal. No respiratory distress. No stridor. no wheezes.no rales. ABD: The abdomen is soft. no distension. No mass is present. There is no tenderness. There is no rebound, no guarding MUSC/SKEL: Normal range of motion. There is no peripheral edema, tenderness or deformity. NEURO: Motor and sensation grossly intact. SKIN: Skin is warm and dry. not diaphoretic. PSYCH: normal mood and affect. Behavior is normal. Judgment and thought content normal. Course Course 1938: The patient was evaluated in room C4. A complete history and physical exam was performed Cardiac monitoring: An order was placed for continuous cardiac monitoring. The monitor shows a rate of 90 with atrial fibrilation rhythm interpreted by me Patient reports he had an outpatient echo done but does not know the results. 2114: External medical records reviewed and case operator Miranda was able to obtain the records from the [facility] system. The patient had an echo done on December 08, 2024 which showed an ejection fraction 50 to 54% with atrial fibrillation. There is left ventricular wall thickness and the base of the inferior wall appeared thinned and hypokinetic. There is a communication note from today which stated that Dr. Garcia planned on starting the patient on Eliquis. Labs show a leukocytosis of 14.4 hemoglobin 12.6 coagulation studies are unremarkable. Urinalysis COVID swab are negative. Imaging shows gallbladder wall thickening and fluid overload and pulmonary edema. Discussed case with Dr. Chan on-call [facility] cardiology who recommends admission and IV diuresis. Lasix ordered for the patient. [facility] Administered Medications Magnesium Sulfate/Dextrose (Magnesium Sulfate / D5w) 1 gm in 100 mls @ 50 mls/hr IV ONE STA Stop: 12/16/24 23:33 Last Admin: 12/16/24 22:10 Dose: 50 mls/hr Documented By: KIKA Discontinued Medications Al Hydrox/Mg Hydrox/Simethicone (Aluminum/Magnesium Susp 30 Ml Udc) 15 ml PO NOW STA Stop: 12/16/24 22:04 Last Admin: 12/16/24 22:10 Dose: 15 ml Documented By: KIKA Furosemide (Furosemide 40 Mg/4 Ml Vial) 40 mg IV ONE ONE Stop: 12/16/24 21:21 Last Admin: 12/16/24 21:25 Dose: 40 mg Documented By: KIKA Ioversol (Optiray 320 125ml) 119 ml IV ONCE ONE Stop: 12/16/24 20:44 Last Admin: 12/16/24 20:43 Dose: 119 ml Documented By: TRACY Potassium Chloride (Potassium Chloride Crtab 20 Meq Tabcr) 20 meq PO NOW STA Stop: 12/16/24 21:32 Last Admin: 12/16/24 22:10 Dose: 20 meq Documented By: KIKA Medical Decision Making Laboratory Data Attestation: I reviewed the patient's lab results. 12/16/24 19:44 12/16/24 19:44 Lab Results 12/16/24 12/16/24 12/16/24 Range/Units 19:44 19:54 22:11 WBC 14.40 H (4.8-10.8) K/ul RBC 4.49 L (4.70-6.10) M/uL Hgb 12.6 L (14.0-18.0) g/dl Hct 40.7 L (42.0-52.0) % MCV 90.6 (80.0-100.0) fL MCH 28.1 (25.0-34.0) pg MCHC 31.0 L (32.0-36.0) g/dL RDW Std Deviation 54.2 H (36.4-46.3) fL RDW Coeff of Mague 16.4 H (11.5-14.5) % Plt Count 549 H (130-400) K/uL MPV 11.5 (9.4-12.4) fL Immature Gran % (Auto) 0.4 % Neut % (Auto) 78.7 % Lymph % (Auto) 7.8 % [place] % (Auto) 10.2 % Eos % (Auto) 1.9 % Baso % (Auto) 1.0 % Neut # (Auto) 11.32 H (1.40-6.50) K/uL Lymph # (Auto) 1.13 L (1.20-3.40) K/uL [place] # (Auto) 1.47 H (0.11-0.59) K/uL Eos # (Auto) 0.28 (0.00-0.50) K/uL Baso # (Auto) 0.14 (0.00-0.20) K/uL Immature Gran # (Auto) 0.06 (0.01-0.20) K/uL PT 12.8 H (9.0-12.0) Seconds INR 1.2 H (0.9-1.1) APTT 35 H (21-31) Seconds PTT Ratio 1.3 Sodium 139 (136-145) mmol/L Potassium 3.9 (3.5-5.1) mmol/L Chloride 108 H (98-107) mmol/L Carbon Dioxide 24 (21-32) mmol/L Anion Gap 7 (3-11) BUN 20 (6-23) mg/dl Creatinine 0.88 (0.6-1.4) mg/dl Est Cr Clr Drug Dosing Not Reportable eGFR 82.19 BUN/Creatinine Ratio 22.7 H (10-20) Glucose 172 H (70-99(Fasting)) mg/dl Calcium 9.5 (8.6-10.3) mg/dl Magnesium 1.8 (1.7-2.4) mg/dl Total Bilirubin 1.3 H (0.2-1.0) mg/dl Direct Bilirubin 0.3 H (0-0.2) mg/dl AST 29 (13-39) U/L ALT 38 (7-52) U/L Alkaline Phosphatase 109 H (34-104) U/L Troponin I High Sens 12.7 (0-20) pg/ml Total Protein 7.3 (6.0-8.3) gm/dl Albumin 4.4 (3.4-5.0) gm/dl Lipase 25 (11-82) U/L Urine Color Yellow Urine Appearance Clear (Clear) Urine pH 5.5 (4.5-7.5) Ur Specific [place] 1.020 (1.000-1.030) Urine Protein Negative (Negative) Urine Glucose (UA) Negative (Negative) Urine Ketones Negative (Negative) Urine Blood Negative (Negative) Urine Nitrite Negative (Negative) Urine Bilirubin Negative (Negative) Urine Urobilinogen Negative (Negative) Ur Leukocyte Esterase Negative (Negative) Adenovirus (PCR) Not Detected (NotDetected) B. pertussis DNA (PCR) Not Detected (NotDetected) B.parapertussis DNA PCR Not Detected (NotDetected) C. pneumoniae DNA (PCR) Not Detected (NotDetected) Coronavirus OC43 (PCR) Not Detected (NotDetected) Coronavirus HKU1 (PCR) Not Detected (NotDetected) Coronavirus 229E (PCR) Not Detected (NotDetected) SARS-CoV-2 (PCR) Not Detected (NotDetected) Coronavirus NL63 (PCR) Not Detected (NotDetected) Human Metapneumovir PCR Not Detected (NotDetected) Influenza Type A (PCR) Not Detected (NotDetected) Influenza Type B (PCR) Not Detected (NotDetected) M. pneumoniae (PCR) Not Detected (NotDetected) Parainfluenza 1 (PCR) Not Detected (NotDetected) Parainfluenza 2 (PCR) Not Detected (NotDetected) Parainfluenza 3 (PCR) Not Detected (NotDetected) Parainfluenza 4 (PCR) Not Detected (NotDetected) RSV (PCR) Not Detected (NotDetected) Entero/Rhino (PCR) Not Detected (NotDetected) Imaging Data Radiologist's Impression: Abdomen/Pelvis CT 12/16/24 20:10 EXAMINATION: CT of the abdomen and pelvis performed after the administration of IV contrast TECHNIQUE: Helical CT images from the lung bases through the symphysis pubis were obtained with contrast. Coronal and sagittal reformatted images were generated at a workstation for further assessment. Dose reduction techniques were achieved by using automatic exposure control and/or adjustment of mA and/or kV according to patient size and/or use of iterative reconstruction technique. COMPARISON: CT from 11/06/2024 HISTORY: Abdominal pain FINDINGS: Liver: No suspicious liver lesions. Portal veins appear patent. The liver is enlarged at 18.7 cm, and appears fatty infiltrated. Gallbladder: There are are a few small calcified gallstones. No abnormal distention. There is mild pericholecystic fluid. Spleen: Normal size. Pancreas: No suspicious pancreatic lesions. The pancreatic duct is not dilated. Adrenal glands: No adrenal nodules. Kidneys: No hydronephrosis or obstructing renal stones. Bladder / Pelvic organs: Significantly enlarged prostate gland. The urinary bladder is incompletely distended and demonstrates mild wall thickening, which may be due to chronic outlet obstruction.. Bowel: No bowel obstruction. No abnormal bowel wall thickening. The appendix is unremarkable. Lymph nodes: No retroperitoneal, mesenteric, or pelvic lymphadenopathy. Peritoneum / Retroperitoneum: No free fluid or air within the abdomen. Vessels: No infrarenal aortic aneurysm. Moderate aortoiliac calcification. Bones and soft tissues: No suspicious lesion in the bones. Small fat-containing inguinal hernias. IMPRESSION: Cholelithiasis. There is mild pericholecystic fluid, which is nonspecific in the setting of CHF. No abnormal distention. Hepatic steatosis/hepatomegaly. Mild wall thickening of the urinary bladder may be due to chronic outlet obstruction, given significant enlargement of the prostate gland, versus possibly cystitis. Electronically signed by Chon Gomez 12-16-2024 9:01 PM Chest CTA 12/16/24 20:11 CT pulmonary angiogram with IV contrast History: Shortness of breath COMPARISON: None TECHNIQUE: CT angiography of the chest was performed without IV contrast followed by IV contrast, including 3D post processing CTA image reconstruction. Dose reduction techniques were achieved by using automatic exposure control and/or adjustment of mA and/or kV according to patient size and/or use of iterative reconstruction technique. FINDINGS: Diagnostic quality: Adequate There is no evidence for pulmonary embolism. The heart is significantly enlarged. There are CABG changes. Moderate aortic valve calcification. No significant pericardial effusion. There are small pleural effusions. Mild, scattered shotty appearing mediastinal and hilar lymph nodes, are likely reactive. There is diffuse interstitial and alveolar pulmonary edema. Limited visualized upper abdomen. No destructive osseous changes are seen. IMPRESSION: No evidence for pulmonary embolism. Findings suggestive of CHF. Significant cardiomegaly, pulmonary edema and pleural effusions are present. Electronically signed by Chon Gomez 12-16-2024 9:01 PM ECG Data Attestation: I personally reviewed and interpreted this ECG as follows: Rate (beats per minute): 88 Rhythm: atrial fibrillation Findings: no ST depression, no ST elevation or no prolonged QT MDM Narrative 1938: The patient was evaluated in room C4. A complete history and physical exam was performed Cardiac monitoring: An order was placed for continuous cardiac monitoring. The monitor shows a rate of 90 with atrial fibrilation rhythm interpreted by me Patient reports he had an outpatient echo done but does not know the results. 2114: External medical records reviewed and case operator Miranda was able to obtain the records from the [facility] system. The patient had an echo done on December 08, 2024 which showed an ejection fraction 50 to 54% with atrial fibrillation. There is left ventricular wall thickness and the base of the inferior wall appeared thinned and hypokinetic. There is a communication note from today which stated that Dr. Garcia planned on starting the patient on Eliquis. Labs show a leukocytosis of 14.4 hemoglobin 12.6 coagulation studies are unremarkable. Urinalysis COVID swab are negative. Imaging shows gallbladder wall thickening and fluid overload and pulmonary edema. Discussed case with Dr. Chan on-call [facility] cardiology who recommends admission and IV diuresis. Lasix ordered for the patient. Patient will be admitted to the [facility] hospitalist team. Impression & Plan Pulmonary edema Discharge Plan Visit Data Chief Complaint: Nausea Stated Complaint: NAUSEA, SOB ED Provider: Balbir Sy Discharge Problem: Pulmonary edema Patient Disposition: Admitted As Inpatient Forms Stand Alone Forms: [facility] [place] Join The Wellness Team Prescriptions Prescriptions: No Action multivitamin [Multiple Vitamins] Tablet 1 tab PO QPM Patient Comments: lunch time metoprolol succinate 100 mg tablet extended release 24 hr 100 mg PO QAM lisinopril 10 mg tablet 10 mg PO QPM metformin 500 mg tablet extended release 24 hr 500 mg PO BIDM rosuvastatin 10 mg tablet 10 mg PO HS docusate sodium [Stool Softener] 100 mg Capsule 200 mg PO QPM Patient Comments: cyclosporine [Restasis] 0.05 % Dropperette 1 drp OPHTHALMIC (EYE) BID trazodone 100 mg tablet 100 mg PO HS trazodone 50 mg tablet 50 mg PO Q6 PRN (Reason: pain,moderate) aspirin [Aspirin Childrens] 81 mg Tablet,Chewable 81 mg PO DAILY Rx Instructions: take with food furosemide 20 mg tablet 20 mg PO 3XWK Rx Instructions: wednesday/wednesday/fridays potassium chloride 10 mEq tablet,ER particles/crystals 10 meq PO 3XWK Rx Instructions: mondays/wednesdays/fridays cholecalciferol (vitamin D3) [Vitamin D3] 25 mcg (1,000 unit) Tablet 25 mcg PO DAILY Referrals Referrals: Donnie Jhonston MD [Primary Care Provider] -
[2024-12-16] MEDS: FUROSEMIDE 40 MG/4 ML VIAL IV ONE (21:25)
--- NOTE | 2024-12-16 21:50 | History & Physical Report ---
Date of Service December 16, 2024 Assessment & Plan (1) CHF (congestive heart failure): Plan: Acute CHF Diastolic dysfunction, pulmonary hypertension on recent outpatient TTE Possibly from new onset A-fib Arrhythmia detected during outpatient TTE study last week CAD status post CABG valvular heart disease (moderate to severe TR, mild MR) hypertension, elevated hyperlipidemia, on statin Rx GERD, currently not on maintenance medications chronic anemia, hemoglobin at baseline DM2 on oral medications, well-controlled as of recent hemoglobin A1c of 6.5 last month past tobacco abuse Admit to PCU Diuretic Rx Strict I/Os, daily weights, CHF education Titrate home BP meds IV heparin for thromboembolic prophylaxis for A-fib Cardiology consult re: CHF, new onset A-fib (ED provider already in touch with Dr. Chan.) ISS BG goal 110-140, carb count coverage DVT prophylaxis. Heparin Full code Text document was generated using [employer] voice recognition software. It may contain grammatical or spelling errors. Kindly contact undersigned for clarification of any documentation item in question. History of Present Illness Chief Complaint: Abdominal discomfort, SOB Primary Care Provider: Donnie Johnston MD History obtained from patient, family, and records. Medical history significant for CAD status post CABG, valvular heart disease (moderate to severe TR, mild MR), hypertension, hyperlipidemia, pulmonary hypertension, GERD, chronic anemia (baseline hemoglobin of 12), PMR, DM2 on oral medications, past tobacco abuse. Last confinement October 2023 under Orthopedics service for elective total right knee arthroplasty. Unremarkable postop course. Recent ER visit last month for traumatic left knee hematoma/contusion secondary to fall. PT recommended by local orthopedics group. Outpatient TTE done last week following PCP request. EF 50 to 54%. Severe biatrial enlargement. Mild MR, moderate to severe TR, estimated PASP of 61 mmHg. Patient requested to proceed to PCP's office 3 days ago to have an EKG done due to abnormal rhythm detected during recent outpatient TTE. EKG showed A-fib. 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 Patient not feeling well the last 2 days. SOB, sick and gassy stomach. No diarrhea symptoms. No cough, no chest pain, No fluid retention. Not sure about sick contacts. IV Lasix administered at the ER. 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 Allergies Allergy/AdvReac Type Severity Reaction Status Date / Time nitrofurantoin Allergy Unknown Hives Verified 11/14/24 13:21 Penicillins Allergy Unknown Hives Verified 11/14/24 13:21 Sulfa (Sulfonamide Allergy Unknown Hives Verified 11/14/24 13:21 Antibiotics) sulfamethoxazole Allergy Unknown Hives Verified 11/14/24 13:21 trimethoprim Allergy Unknown Hives Verified 11/14/24 13:21 Home Medications Medication Instructions Recorded Confirmed Type lisinopril 10 mg tablet 10 mg PO QPM 10/24/19 12/16/24 History metformin 500 mg tablet,extended 500 mg PO BIDM 10/24/19 12/16/24 History release 24 hr metoprolol succinate 100 mg 100 mg PO QAM 10/24/19 12/16/24 History tablet,extended release 24 hr multivitamin (Multiple Vitamins 1 tab PO QPM 10/24/19 12/16/24 History tablet) rosuvastatin 10 mg tablet 10 mg PO HS 10/24/19 12/16/24 History cyclosporine 0.05 % eye drops in a 1 drp ophthalmic (eye) BID 09/30/23 12/16/24 History dropperette (Restasis) docusate sodium 100 mg capsule 200 mg PO QPM 09/30/23 12/16/24 History (Stool Softener) aspirin 81 mg chewable tablet 81 mg PO DAILY 12/16/24 12/16/24 History (Aspirin Childrens) cholecalciferol (vitamin D3) 25 25 mcg PO DAILY 12/16/24 12/16/24 History mcg (1,000 unit) tablet (Vitamin D3) furosemide 20 mg tablet 20 mg PO 3XWK 12/16/24 12/16/24 History potassium chloride 10 mEq 10 meq PO 3XWK 12/16/24 12/16/24 History tablet,extended release(part/cryst) trazodone 100 mg tablet 100 mg PO HS 12/16/24 12/16/24 History trazodone 50 mg tablet 50 mg PO Q6 PRN pain,moderate 12/16/24 12/16/24 History Past Med/Surg History Problem List (Updated 12/16/24 @ 23:48 by Javier Aguayo MD) CHF (congestive heart failure) Pulmonary edema (Acute) Status post right knee replacement Encounter for pre-operative examination DVT prophylaxis Partial small bowel obstruction (Acute) Diarrhea (Acute) Vomiting (Acute) Left knee DJD Right knee DJD CKD (chronic kidney disease) stage 3, GFR 30-59 ml/min CAD (coronary artery disease) s/p 3 vessel CABG 2004 Hypertension (Chronic) Diabetes (Chronic) Glucose stable per patient Medical History Hx of drug rash Per patient- follows with dermatology- said rash he is being treated for stems from initial injections in his knees, 09/2022>currently using dupixent injections- rash improving (no current rash to knees at this at point- surgeon aware) History of COVID-2021, PCP test, not hosp; "bad" sinus infection>resolved summer 2022, PCP test, not hosp; "bad" sinus infection>resolved Hx of myocardial infarction "silent" 2004>CABG x3 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 cordero, [facility] HLD (hyperlipidemia) Surgical History Hx of cystoscopy History of detached retina repair rt. Hx of cardiac cath 2004, following "silent" heart attack, no stents>triple CABG, [facility] History of colonoscopy with polypectomy Last 03/20/2015 adenomatous polyp History of arthroscopic knee surgery rt. History of cataract extraction rt/lt History of hernia repair Bilateral Family History Mother , 72 No problems noted. 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 Beliefs That Will Affect Care: None marital status: Current Living Situation: Spouse Current Living Situation Comment: lives with and son Feels Safe at Home: Yes Assistive Devices: Walker Review of Systems Review of Systems: As per HPI, all other systems reviewed and negative Physical Exam Physical Exam: GENERAL: Comfortable, episodic tachypnea during speech, no respiratory distress SKIN: Normal color, warm HEENT: Barnett palpebral conjunctivae, no ptosis, dry buccal mucosa NECK : Supple, prominent JVD, no tenderness CHEST : Decreased breath sounds, no tenderness HEART : Irregular, no obvious murmurs ABDOMEN: Some distention, nontender EXTREMITIES : Minimal LE swelling, left knee brace, left knee tenderness, palpable pulses, no other conspicuous deformities noted NEUROLOGIC : Coherent, no facial asymmetry, no other gross focality Results & Data Results & Data Vital Signs (Past 12 Hours) Vital Signs Temp Pulse Resp BP Pulse Ox O2 Del Method 12/16/24 21:33 75 19 149/85 H 91 12/16/24 20:09 73 20 160/83 H 94 12/16/24 19:48 94 Room Air 12/16/24 19:39 84 12/16/24 19:28 36.5 C 92 H 20 165/97 H 95 Room Air Laboratory Results Laboratory Results WBC 14.40 K/ul (4.8-10.8) H 12/16/24 19:44 RBC 4.49 M/uL (4.70-6.10) L 12/16/24 19:44 Hgb 12.6 g/dl (14.0-18.0) L 12/16/24 19:44 Hct 40.7 % (42.0-52.0) L 12/16/24 19:44 MCV 90.6 fL (80.0-100.0) 12/16/24 19:44 MCH 28.1 pg (25.0-34.0) 12/16/24 19:44 MCHC 31.0 g/dL (32.0-36.0) L 12/16/24 19:44 RDW Std Deviation 54.2 fL (36.4-46.3) H 12/16/24 19:44 RDW Coeff of Mague 16.4 % (11.5-14.5) H 12/16/24 19:44 Plt Count 549 K/uL (130-400) H 12/16/24 19:44 MPV 11.5 fL (9.4-12.4) 12/16/24 19:44 Immature Gran % (Auto) 0.4 % 12/16/24 19:44 Neut % (Auto) 78.7 % 12/16/24 19:44 Lymph % (Auto) 7.8 % 12/16/24 19:44 Victoria % (Auto) 10.2 % 12/16/24 19:44 Eos % (Auto) 1.9 % 12/16/24 19:44 Baso % (Auto) 1.0 % 12/16/24 19:44 Neut # (Auto) 11.32 K/uL (1.40-6.50) H 12/16/24 19:44 Lymph # (Auto) 1.13 K/uL (1.20-3.40) L 12/16/24 19:44 Victoria # (Auto) 1.47 K/uL (0.11-0.59) H 12/16/24 19:44 Eos # (Auto) 0.28 K/uL (0.00-0.50) 12/16/24 19:44 Baso # (Auto) 0.14 K/uL (0.00-0.20) 12/16/24 19:44 Immature Gran # (Auto) 0.06 K/uL (0.01-0.20) 12/16/24 19:44 PT 12.8 Seconds (9.0-12.0) H 12/16/24 19:44 INR 1.2 (0.9-1.1) H 12/16/24 19:44 APTT 35 Seconds (21-31) H 12/16/24 19:44 PTT Ratio 1.3 12/16/24 19:44 Sodium 139 mmol/L (136-145) 12/16/24 19:44 Potassium 3.9 mmol/L (3.5-5.1) 12/16/24 19:44 Chloride 108 mmol/L (98-107) H 12/16/24 19:44 Carbon Dioxide 24 mmol/L (21-32) 12/16/24 19:44 Anion Gap 7 (3-11) 12/16/24 19:44 BUN 20 mg/dl (6-23) 12/16/24 19:44 Creatinine 0.88 mg/dl (0.6-1.4) 12/16/24 19:44 Est Cr Clr Drug Dosing Not Reportable 12/16/24 19:44 eGFR 82.19 12/16/24 19:44 BUN/Creatinine Ratio 22.7 (10-20) H 12/16/24 19:44 Glucose 172 mg/dl (70-99(Fasting)) H 12/16/24 19:44 Calcium 9.5 mg/dl (8.6-10.3) 12/16/24 19:44 Magnesium 1.8 mg/dl (1.7-2.4) 12/16/24 19:44 Total Bilirubin 1.3 mg/dl (0.2-1.0) H 12/16/24 19:44 Direct Bilirubin 0.3 mg/dl (0-0.2) H 12/16/24 19:44 AST 29 U/L (13-39) 12/16/24 19:44 ALT 38 U/L (7-52) 12/16/24 19:44 Alkaline Phosphatase 109 U/L (34-104) H 12/16/24 19:44 Troponin I High Sens 12.7 pg/ml (0-20) 12/16/24 19:44 Total Protein 7.3 gm/dl (6.0-8.3) 12/16/24 19:44 Albumin 4.4 gm/dl (3.4-5.0) 12/16/24 19:44 Lipase 25 U/L (11-82) 12/16/24 19:44 Adenovirus (PCR) Not Detected (NotDetected) 12/16/24 19:54 B. pertussis DNA (PCR) Not Detected (NotDetected) 12/16/24 19:54 B.parapertussis DNA PCR Not Detected (NotDetected) 12/16/24 19:54 C. pneumoniae DNA (PCR) Not Detected (NotDetected) 12/16/24 19:54 Coronavirus OC43 (PCR) Not Detected (NotDetected) 12/16/24 19:54 Coronavirus HKU1 (PCR) Not Detected (NotDetected) 12/16/24 19:54 Coronavirus 229E (PCR) Not Detected (NotDetected) 12/16/24 19:54 SARS-CoV-2 (PCR) Not Detected (NotDetected) 12/16/24 19:54 Coronavirus NL63 (PCR) Not Detected (NotDetected) 12/16/24 19:54 Human Metapneumovir PCR Not Detected (NotDetected) 12/16/24 19:54 Influenza Type A (PCR) Not Detected (NotDetected) 12/16/24 19:54 Influenza Type B (PCR) Not Detected (NotDetected) 12/16/24 19:54 M. pneumoniae (PCR) Not Detected (NotDetected) 12/16/24 19:54 Parainfluenza 1 (PCR) Not Detected (NotDetected) 12/16/24 19:54 Parainfluenza 2 (PCR) Not Detected (NotDetected) 12/16/24 19:54 Parainfluenza 3 (PCR) Not Detected (NotDetected) 12/16/24 19:54 Parainfluenza 4 (PCR) Not Detected (NotDetected) 12/16/24 19:54 RSV (PCR) Not Detected (NotDetected) 12/16/24 19:54 Entero/Rhino (PCR) Not Detected (NotDetected) 12/16/24 19:54 Impressions Abdomen/Pelvis CT 12/16/24 20:10 EXAMINATION: CT of the abdomen and pelvis performed after the administration of IV contrast TECHNIQUE: Helical CT images from the lung bases through the symphysis pubis were obtained with contrast. Coronal and sagittal reformatted images were generated at a workstation for further assessment. Dose reduction techniques were achieved by using automatic exposure control and/or adjustment of mA and/or kV according to patient size and/or use of iterative reconstruction technique. COMPARISON: CT from 11/06/2024 HISTORY: Abdominal pain FINDINGS: Liver: No suspicious liver lesions. Portal veins appear patent. The liver is enlarged at 18.7 cm, and appears fatty infiltrated. Gallbladder: There are are a few small calcified gallstones. No abnormal distention. There is mild pericholecystic fluid. Spleen: Normal size. Pancreas: No suspicious pancreatic lesions. The pancreatic duct is not dilated. Adrenal glands: No adrenal nodules. Kidneys: No hydronephrosis or obstructing renal stones. Bladder / Pelvic organs: Significantly enlarged prostate gland. The urinary bladder is incompletely distended and demonstrates mild wall thickening, which may be due to chronic outlet obstruction.. Bowel: No bowel obstruction. No abnormal bowel wall thickening. The appendix is unremarkable. Lymph nodes: No retroperitoneal, mesenteric, or pelvic lymphadenopathy. Peritoneum / Retroperitoneum: No free fluid or air within the abdomen. Vessels: No infrarenal aortic aneurysm. Moderate aortoiliac calcification. Bones and soft tissues: No suspicious lesion in the bones. Small fat-containing inguinal hernias. IMPRESSION: Cholelithiasis. There is mild pericholecystic fluid, which is nonspecific in the setting of CHF. No abnormal distention. Hepatic steatosis/hepatomegaly. Mild wall thickening of the urinary bladder may be due to chronic outlet obstruction, given significant enlargement of the prostate gland, versus possibly cystitis. Electronically signed by Chon Gomez 12-16-2024 9:01 PM Chest CTA 12/16/24 20:11 CT pulmonary angiogram with IV contrast History: Shortness of breath COMPARISON: None TECHNIQUE: CT angiography of the chest was performed without IV contrast followed by IV contrast, including 3D post processing CTA image reconstruction. Dose reduction techniques were achieved by using automatic exposure control and/or adjustment of mA and/or kV according to patient size and/or use of iterative reconstruction technique. FINDINGS: Diagnostic quality: Adequate There is no evidence for pulmonary embolism. The heart is significantly enlarged. There are CABG changes. Moderate aortic valve calcification. No significant pericardial effusion. There are small pleural effusions. Mild, scattered shotty appearing mediastinal and hilar lymph nodes, are likely reactive. There is diffuse interstitial and alveolar pulmonary edema. Limited visualized upper abdomen. No destructive osseous changes are seen. IMPRESSION: No evidence for pulmonary embolism. Findings suggestive of CHF. Significant cardiomegaly, pulmonary edema and pleural effusions are present. Electronically signed by Chon Gomez 12-16-2024 9:01 PM Diagnostic Findings EKG as per my interpretation :Rate 90, A-fib, LAD, LAFB, T wave abnormalities inferior leads, PVCs
[2024-12-16] MEDS: MAGNESIUM SULFATE / D5W 1 GM/100 ML BAG IV STA (22:10)
[2024-12-16] MEDS: ALUMINUM/MAGNESIUM SUSP 30 ML UDC PO STA (22:10)
[2024-12-16] MEDS: POTASSIUM CHLORIDE CRTAB 20 MEQ TABCR PO STA (22:10)
[2024-12-16 22:32] LABS: Appearance Urine Clear (Clear); Bilirubin Urine Negative (Negative); Blood Urine Negative (Negative); Color Urine Yellow; Glucose Urine UA Negative (Negative); Ketones Urine Negative (Negative); Leukocyte Esterase Urine Negative (Negative); Nitrite Urine Negative (Negative); Protein Urine Negative (Negative); Urobilinogen Urine Negative (Negative); pH Urine 5.5 (4.5-7.5)
[2024-12-16] MEDS ORDERED: traMADol HCL 50 MG TABLET PO PRN (22:36)
[2024-12-16] MEDS ORDERED: ACETAMINOPHEN 325 MG TAB PO PRN (22:36)
[2024-12-16] MEDS ORDERED: ARTIFICIAL TEARS OP PRN (22:46)
[2024-12-16] MEDS: Heparin IV Adult Wt-Based Standard *NO* INITIAL Bolus Protocol IV STA (23:10)
[2024-12-16] MEDS: PROMETHAZINE 6.25 MG/50.25 ML BAG IV PRN (23:54)
[2024-12-17 00:06] LABS: Thyroid Stimulating Hormone 3.263 uIu/ml (0.300-4.500)
[2024-12-17] MEDS: HEPARIN 25000 UNIT/500 ML D5W 25,000 UNITS/500 ML BAG IV SCH (00:08)
[2024-12-17] MEDS ORDERED: DEXTROSE 50% 50 ML SYRINGE IV PRN (00:15)
[2024-12-17] MEDS ORDERED: GLUCAGON FOR INJ 1 MG VIAL SQ PRN (00:15)
[2024-12-17] MEDS ORDERED: GLUCOSE 40% GEL 15 GM TUBE PO PRN (00:15)
[2024-12-17] MEDS ORDERED: CARBOHYDRATES FOR HYPOGLYCEMIA PO PRN (00:15)
[2024-12-17] MEDS ORDERED: ACETAMINOPHEN 325 MG TAB PO PRN (00:15)
[2024-12-17] MEDS ORDERED: GLUCOSE 10 TAB/TUBE PO PRN (00:15)
[2024-12-17] MEDS ORDERED: NITROGLYCERIN SL 0.4 MG/TAB TAB SL PRN (00:15)
[2024-12-17] MEDS: traZODone HCL 100 MG TAB PO SCH (00:26)
[2024-12-17] MEDS: MELATONIN 3 MG TAB PO PRN (03:41)
[2024-12-17] MEDS: INSULIN ASPART PER UNIT CHARGE SC SCH (04:19)
[2024-12-17] MEDS ORDERED: MELATONIN 3 MG TAB PO PRN (05:28)
[2024-12-17] MEDS ORDERED: ATROPINE SULFATE 0.1 MG/ML 10ML SYR IV PRN (05:29)
--- NOTE | 2024-12-17 05:30 | Communication Note ---
Date of Service: December 17, 2024 Patient noted to be bradycardic heart rate 40 to 50s. SBP 80s Patient asymptomatic as per RN. AP Possible tachybradycardia syndrome Hold beta-radha for now until patient seen by cardiology. IV atropine as needed symptomatic bradycardia.
[2024-12-17 05:54] LABS: Basophils # (auto) 0.11 K/uL (0.00-0.20); Eosinophils % (auto) 1.7 %; Hematocrit (blood only) 34.1 % (42.0-52.0); Hemoglobin 10.7 g/dl (14.0-18.0); Immature Granulocytes # (auto) 0.06 K/uL (0.01-0.20); Immature Granulocytes % (auto) 0.5 %; Lymphocytes # (auto) 1.21 K/uL (1.20-3.40); Lymphocytes % (auto) 10.5 %; Mean Corpuscular Hemoglobin 27.9 pg (25.0-34.0); Mean Corpuscular Hgb Conc 31.4 g/dL (32.0-36.0); Mean Platelet Volume 11.1 fL (9.4-12.4); Monocytes # (auto) 1.26 K/uL (0.11-0.59); Neutrophils # (auto) 8.64 K/uL (1.40-6.50); Neutrophils % (auto) 75.3 %; Platelet Count 434 K/uL (130-400); RDW Coefficient of Variation 16.3 % (11.5-14.5); RDW Standard Deviation 52.7 fL (36.4-46.3); Red Blood Count 3.83 M/uL (4.70-6.10); White Blood Count 11.48 K/ul (4.8-10.8)
[2024-12-17 06:07] LABS: BUN Creatinine Ratio 20.5 (10-20); Calcium 8.9 mg/dl (8.6-10.3); Creatinine Clr Calc Pharmacy 51.6 ml/min; Potassium 3.8 mmol/L (3.5-5.1)
[2024-12-17] MEDS: ALBUMIN 25% 12.5 GM/50 ML VIAL IV ONE (06:32)
[2024-12-17] MEDS: FUROSEMIDE 40 MG/4 ML VIAL IV ONE (08:56)
[2024-12-17] MEDS: CHOLECALCIFEROL 25 MCG (1000 UNITS) TAB PO SCH (08:56)
[2024-12-17] MEDS: ASPIRIN 81 MG ECTAB PO SCH (08:56)
[2024-12-17] MEDS ORDERED: METOPROLOL SUCC 50MG EXT REL TAB PO SCH (09:00)
--- NOTE | 2024-12-17 12:41 | Electrocardiogram Report ---
Test Reason : Blood Pressure : */* mmHG Vent. Rate : 88 BPM Atrial Rate : 89 BPM P-R Int : * ms QRS Dur : 86 ms QT Int : 364 ms P-R-T Axes : * -27 -12 degrees QTcB Int : 440 ms Atrial fibrillation with premature ventricular or aberrantly conducted complexes Nonspecific ST abnormality Abnormal ECG When compared with ECG of 06-Nov-2024 09:10, Atrial fibrillation has replaced Sinus rhythm Confirmed by Jasiel Stephens ([id number]) on 12/17/2024 12:41:28 PM Referred By: REFERRED SELF Confirmed By: Jasiel Stephens
[2024-12-17 12:54] LABS: ANTI-Xa, UFH(UnfractionatedHep 0.32 IU/ml (0.3-0.7)
--- NOTE | 2024-12-17 13:51 | Cardiology Consultation ---
Date of Consultation December 17, 2024 Assessment & Plan (1) Afib: (2) Acute heart failure with preserved ejection fraction (HFpEF): (3) CAD (coronary artery disease): (4) Hypertension: Plan 89 year old male with past medical history of CAD s/p CABG, HTN, dyslipidemia, DM2, who presented to ED with abdominal discomfort and edema. Found to be in new onset afib. Symptoms also consistent with acute CHF. 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 Chan. I spent a total of 35 minutes on the date of service in preparation, delivery, and documentation of the care provided to this patient excluding any time spent in the performance of separately billed services. This visit was a split-shared visit with the substantial portion of the decision making performed by the supervising plastics design engineer/billing provider. Supervising Physician Co-Signing Physician Notes I spent a total of 40 minutes on the date of service in preparation, delivery, and documentation of the care provided to this patient, excluding any time spent in the performance of separately billed services. I have personally performed a history and physical examination on the patient. I have reviewed the advance practitioner's documentation, and I agree with, and take responsibility for the plan of care. 89-year-old male with past medical history of CAD status post CABG, HTN, HLD, DM presented to the ER with shortness of breath with exertion, abdominal discomfort and lower extremity edema. Patient states that 2 weeks ago he went to see his PCP and he was tachycardic and irregular and his PCP did an ECG which showed atrial fibrillation. At the time PCP recommended patient start Eliquis but patient wanted to think about it. Over the course of the week patient states that he was having worsening shortness of breath with exertion abdominal distention and lower extremity edema and presented to the ER last night. His ECG showed atrial fibrillation with premature ventricular contractions but no acute ischemic changes. Troponins were negative x 2 and patient denies having any chest pain. CT of the chest showed pulmonary edema with small bilateral pleural effusions. He was given a dose of Lasix in the ER and had good response with -1.5 L. He is feeling improved today but still having some abdominal distention and shortness of breath. Will give another dose of Lasix today and reevaluate patient in the morning. Echocardiogram done on 12/08/2024 showed LVEF of 50 to 54%, mildly dilated RV cavity size with normal RV systolic function, severe biatrial enlargement, mild MR, moderate to severe TR with severe pulmonary hypertension with pulmonary systolic pressure 61 mmHg. Patient on heparin drip for his atrial fibrillation. Patient denies any history of abnormal bleeding or intracranial hemorrhage and is agreeable to start anticoagulation. We can switch patient over to Eliquis. History of Present Illness Reason for Consultation: CHF Requesting Physician: Ngozi hodgesist Attending Physician: Alex Márquez MD History of Present Illness 89 year old male with past medical history of CAD s/p CABG, HTN, dyslipidemia, DM2, who presented to ED with abdominal discomfort and edema. States he was seen by PCP and was noted to have "an irregular heart rhythm", had EKG and echo. EKG with new onset afib, however, patient had not yet been contacted by PCP with results. Over past 3-4 days he had worsening edema. Noted some palpitations that would come and go. In ED, was in afib, 88 bpm. Appeared to be hypervolemic and was admitted for IV diuresis. On exam today, he states he still has some abdominal bloating. Denies chest pain, shortness of breath, edema. Has been compliant with all medications, is on furosemide 20 mg three days a week at home. Follows with outpatient cardiology, Dr. Cordero, last evaluated 06/2024. Tries to eat low sodium diet. Former tobacco use, denies alcohol and illicit drug use. Allergies Allergy/AdvReac Type Severity Reaction Status Date / Time nitrofurantoin Allergy Unknown Hives Verified 11/14/24 13:21 Penicillins Allergy Unknown Hives Verified 11/14/24 13:21 Sulfa (Sulfonamide Allergy Unknown Hives Verified 11/14/24 13:21 Antibiotics) sulfamethoxazole Allergy Unknown Hives Verified 11/14/24 13:21 trimethoprim Allergy Unknown Hives Verified 11/14/24 13:21 Home Medications Medication Instructions Recorded Confirmed Type lisinopril 10 mg tablet 10 mg PO QPM 10/24/19 12/16/24 History metformin 500 mg tablet,extended 500 mg PO BIDM 10/24/19 12/16/24 History release 24 hr metoprolol succinate 100 mg 100 mg PO QAM 10/24/19 12/16/24 History tablet,extended release 24 hr multivitamin (Multiple Vitamins 1 tab PO QPM 10/24/19 12/16/24 History tablet) rosuvastatin 10 mg tablet 10 mg PO HS 10/24/19 12/16/24 History cyclosporine 0.05 % eye drops in a 1 drp ophthalmic (eye) BID 09/30/23 12/16/24 History dropperette (Restasis) docusate sodium 100 mg capsule 200 mg PO QPM 09/30/23 12/16/24 History (Stool Softener) aspirin 81 mg chewable tablet 81 mg PO DAILY 12/16/24 12/16/24 History (Aspirin Childrens) cholecalciferol (vitamin D3) 25 25 mcg PO DAILY 12/16/24 12/16/24 History mcg (1,000 unit) tablet (Vitamin D3) furosemide 20 mg tablet 20 mg PO 3XWK 12/16/24 12/16/24 History potassium chloride 10 mEq 10 meq PO 3XWK 12/16/24 12/16/24 History tablet,extended release(part/cryst) trazodone 100 mg tablet 100 mg PO HS 12/16/24 12/16/24 History trazodone 50 mg tablet 50 mg PO Q6 PRN pain,moderate 12/16/24 12/16/24 History Patient History Medical History Hx of drug rash Per patient- follows with dermatology- said rash he is being treated for stems from initial injections in his knees, 09/2022>currently using dupixent injections- rash improving (no current rash to knees at this at point- surgeon aware) History of COVID-2021, PCP test, not hosp; "bad" sinus infection>resolved summer 2022, PCP test, not hosp; "bad" sinus infection>resolved Hx of myocardial infarction "silent" 2004>CABG x3 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 cordero, [facility] HLD (hyperlipidemia) Surgical History Hx of cystoscopy History of detached retina repair rt. Hx of cardiac cath 2004, following "silent" heart attack, no stents>triple CABG, [facility] History of colonoscopy with polypectomy Last 03/20/2015 adenomatous polyp History of arthroscopic knee surgery rt. History of cataract extraction rt/lt History of hernia repair Bilateral Family History Mother , 72 No problems noted. Father Cancer, Onset Age: 78 MDS Brother , 39 Sudden Social History Smoking Status: Never smoker Tobacco Type: Pipe Second Hand Exposure: No; Do You Dip or Chew Tobacco: No; Hx Alcohol Use: Yes Alcohol type: beer Hx Substance Use: No Preferred Language: Albanian Communication Ability: Effective Fieldwork Coordinator Required: No Beliefs That Will Affect Care: None marital status: Current Living Situation: Alone Current Living Situation Comment: lives with and son Other Information That Helps Us Care for You: No Feels Safe at Home: Yes Safety Concerns: Feels Safe At This Time Assistive Devices: Cane and Glasses Review of Systems Review of Systems: CONSTITUTIONAL: No change in weight, No weakness, No fatigue and No fevers, No sweats or chills. PULMONARY: No cough, sputum, or hemoptysis, No wheezing, No shortness of breath and No recent change in breathing. CARDIOVASCULAR: No chest pain, No dyspnea on exertion, +edema, No palpitations and No syncope. GASTROINTESTINAL: No abdominal pain, No change in bowel habits, No significant heartburn, No nausea, No vomiting, No diarrhea, No constipation, No blood in stools or black tarry stools. No dysphagia. HEMATOLOGIC: No abnormal bleeding and No bruising. NEUROLOGICAL: Normal balance, No headaches and No weakness. Physical Exam Physical Exam: General: No acute distress. A+Ox3. HEENT: Normocephalic. Atraumatic. PERRL. EOMI. Conjunctiva and sclera clear. NECK: No carotid bruits. + JVD. Carotid upstrokes are brisk. Heart: Irregularly irregular. S1 and S2 noted. No murmur. No rubs or gallops. PMI non displaced. Lungs: Clear to auscultation. No wheezes. No rhonchi. No rales. Abdomen: Normal bowel sounds. Soft. Nontender. No masses or organomegaly. No abdominal bruits. Extremities: No edema. No clubbing or cyanosis. Pulses: radial=2/4, posterior tibial=2/4, dorsalis pedis = 2/4. NEURO: No focal deficits. PSYCH: Appropriate affect and insight. Results & Data Vital Signs (Past 12 Hours) Vital Signs Temp Pulse Pulse Resp BP BP Pulse Ox 12/17/24 13:02 12/17/24 13:00 36.7 C 67 18 124/72 97 12/17/24 12:00 74 25 H 118/67 95 12/17/24 10:26 52 L 23 117/81 92 12/17/24 08:10 72 27 H 114/63 93 12/17/24 08:09 12/17/24 07:15 62 12/17/24 07:00 57 L 24 108/64 12/17/24 06:30 104/50 L 12/17/24 06:30 104/50 L 12/17/24 06:30 104/50 L 12/17/24 05:57 68 29 H 101/47 L 12/17/24 05:00 60 25 H 82/44 L Pulse Ox O2 Del Method O2 Del Method 12/17/24 13:02 Room Air 12/17/24 13:00 Room Air 12/17/24 12:00 Room Air 12/17/24 10:26 Room Air 12/17/24 08:10 Room Air 12/17/24 08:09 93 Room Air 12/17/24 07:15 12/17/24 07:00 12/17/24 06:30 12/17/24 06:30 12/17/24 06:30 12/17/24 05:57 12/17/24 05:00 Laboratory Results Cardiac Enzymes 12/16/24 Range/Units 19:44 AST 29 (13-39) U/L Troponin I High Sens 12.7 (0-20) pg/ml Coagulation 12/16/24 Range/Units 19:44 PT 12.8 H (9.0-12.0) Seconds APTT 35 H (21-31) Seconds CBC 12/16/24 12/17/24 Range/Units 19:44 05:40 WBC 14.40 H 11.48 H (4.8-10.8) K/ul RBC 4.49 L 3.83 L (4.70-6.10) M/uL Hgb 12.6 L 10.7 L (14.0-18.0) g/dl Hct 40.7 L 34.1 L (42.0-52.0) % Plt Count 549 H 434 H (130-400) K/uL Neut # (Auto) 11.32 H 8.64 H (1.40-6.50) K/uL Lymph # (Auto) 1.13 L 1.21 (1.20-3.40) K/uL [place] # (Auto) 1.47 H 1.26 H (0.11-0.59) K/uL Eos # (Auto) 0.28 0.20 (0.00-0.50) K/uL Baso # (Auto) 0.14 0.11 (0.00-0.20) K/uL Comprehensive Metabolic Panel 12/16/24 12/17/24 Range/Units 19:44 05:40 Sodium 139 139 (136-145) mmol/L Potassium 3.9 3.8 (3.5-5.1) mmol/L Chloride 108 H 106 (98-107) mmol/L Carbon Dioxide 24 27 (21-32) mmol/L BUN 20 18 (6-23) mg/dl Creatinine 0.88 0.88 (0.6-1.4) mg/dl Glucose 172 H 136 H (70-99(Fasting)) mg/dl Calcium 9.5 8.9 (8.6-10.3) mg/dl Direct Bilirubin 0.3 H (0-0.2) mg/dl AST 29 (13-39) U/L ALT 38 (7-52) U/L Alkaline Phosphatase 109 H (34-104) U/L Total Protein 7.3 (6.0-8.3) gm/dl Albumin 4.4 (3.4-5.0) gm/dl Intake and Output 12/16/24 12/17/24 12/17/24 22:59 06:59 14:59 Intake Total 150.25 / 150.25 230.167 / 230.167 Output Total 875 / 1725 850 / 1725 201 / 201 Balance -875 / -1574.75 -699.75 / -1574.75 29.167 / 29.167 Intake: IV 150.25 / 150.25 230.167 / 230.167 Albumin 25% 12.5 gm In 50 ml @ 50 / 50 50 mls/hr IV ONE ONE Rx#: [id number] Heparin 23689 Unit/500 ml D5w 180.167 / 180.167 25,000 units In 500 ml @ 1,150 UNITS/HR 23 mls/hr IV .[id number] [facility] Rx#:[id number] Magnesium Sulfate / D5w 1 gm In 100 / 100 100 ml @ 50 mls/hr IV ONE STA Rx#:[id number] Promethazine 6.25 mg In 50.25 50.25 / 50.25 ml @ 201 mls/hr IV Q6H PRN Rx#: [id number] Output: Urine 875 / 1725 850 / 1725 200 / 200 # Bowel Movements Other: Weight 71.5 kg 71.5 kg Weight Measurement Method Built in [facility] Built in [facility] Diagnostic Findings EKG 12/16/24 afib, 88 bpm Echo 12/08/24, LVEF 50-54%, moderate to severe TR, mild MR (1) Afib Atrial fibrillation type: paroxysmal Qualified Code(s): I48.0 - Paroxysmal atrial fibrillation (3) CAD (coronary artery disease) Associated angina: without angina Coronary Disease-Associated Artery/Lesion type: [place] artery [place] vs. transplanted heart: [place] heart Qualified Code(s): I25.10 - Atherosclerotic heart disease of [place] coronary artery without angina pectoris (4) Hypertension Hypertension type: unspecified Qualified Code(s): I10 - Essential (primary) hypertension
--- NOTE | 2024-12-17 15:05 | Hospitalist Progress Note ---
Date of Service December 17, 2024 Assessment & Plan (1) CHF (congestive heart failure): Plan: per admitting service notes with addendum: Acute CHF Diastolic dysfunction, pulmonary hypertension on recent outpatient TTE Possibly from new onset A-fib Arrhythmia detected during outpatient TTE study last week Given 1 dose of Lasix 40 mg IV earlier today Also placed on heparin drip Currently seems to be in sinus rhythm, heart rate 60s Cardiology service consulted, awaiting further recommendations CAD status post CABG valvular heart disease (moderate to severe TR, mild MR) hypertension, elevated hyperlipidemia, on statin Rx GERD, currently not on maintenance medications chronic anemia, hemoglobin at baseline DM2 on oral medications, well-controlled as of recent hemoglobin A1c of 6.5 last month past tobacco abuse DVT prophylaxis. Heparin Full code Lives at home with Will order PT OT evaluation once medically stable next Admission and Anticipated Discharge Date Admission Date: December 16, 2024 Subjective Follow-up for acute CHF exacerbation, atrial fibrillation RVR, episode of bradycardia, etc. seen resting in bed, sitting up, not in distress States he feels improved compared to yesterday Breathing is improving No chest pain, dizziness, palpitations Denies presyncope or syncope at home no other symptoms Review of Systems Review of Systems: all noted and negative except for above Physical Exam Physical Exam: General- oriented x 3, not in distress, speaks in sentences with no effort or accessory muscle use Eyes- anicteric Neck- no JVD Lungs- Mild rales bilateral bases, no wheezing Heart- normal rate, regular rhythm; Grade 2 holosystolic murmur Abdomen- normal bowel sounds, nondistended, soft, nontender Extremities- mild edema left lower extremity, no erythema/warmth/tenderness right lower extremity: Essentially normal Neuro- alert, oriented x 3; no gross focal neurologic deficits Skin- warm & dry Results & Data Results & Data Vital Signs (Past 12 Hours) Vital Signs Temp Pulse Pulse Resp BP BP Pulse Ox 12/17/24 13:02 12/17/24 13:00 36.7 C 67 18 124/72 97 12/17/24 12:00 74 25 H 118/67 95 12/17/24 10:26 52 L 23 117/81 92 12/17/24 08:10 72 27 H 114/63 93 12/17/24 08:09 12/17/24 07:15 62 12/17/24 07:00 57 L 24 108/64 12/17/24 06:30 104/50 L 12/17/24 06:30 104/50 L 12/17/24 06:30 104/50 L 12/17/24 05:57 68 29 H 101/47 L 12/17/24 05:00 60 25 H 82/44 L Pulse Ox O2 Del Method O2 Del Method 12/17/24 13:02 Room Air 12/17/24 13:00 Room Air 12/17/24 12:00 Room Air 12/17/24 10:26 Room Air 12/17/24 08:10 Room Air 12/17/24 08:09 93 Room Air 12/17/24 07:15 12/17/24 07:00 12/17/24 06:30 12/17/24 06:30 12/17/24 06:30 12/17/24 05:57 12/17/24 05:00 all noted and reviewed including below
[2024-12-17] MEDS: ROSUVASTATIN CALCIUM 10 MG TAB PO SCH (20:39)
[2024-12-17] MEDS: lisinopril 10 MG TAB PO SCH (20:39)
[2024-12-17] MEDS: MULTIVITAMIN TAB PO SCH (20:39)
[2024-12-17] MEDS: DOCUSATE SODIUM 100 MG CAP PO SCH (20:41)
[2024-12-18 04:30] LABS: ANTI-Xa, UFH(UnfractionatedHep 0.38 IU/ml (0.3-0.7)
[2024-12-18 09:44] LABS: BUN Creatinine Ratio 15.6 (10-20); Calcium 8.7 mg/dl (8.6-10.3); Creatinine Clr Calc Pharmacy 50.5 ml/min; Magnesium 1.8 mg/dl (1.7-2.4); Potassium 3.2 mmol/L (3.5-5.1)
--- NOTE | 2024-12-18 10:15 | Cardiology Progress Note ---
Date of Service December 18, 2024 Assessment & Plan (1) Afib: (2) Acute heart failure with preserved ejection fraction (HFpEF): (3) CAD (coronary artery disease): (4) Hypertension: Plan 89 year old male with past medical history of CAD s/p CABG, HTN, dyslipidemia, DM2, who presented to ED with abdominal discomfort and edema. Found to be in new onset afib. Symptoms also consistent with acute CHF. 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 No significant prolonged R to R. Metoprolol 100 mg held. Resume lower dose metoprolol 50 mg daily. -Transition to oral diuretics furosemide 20 mg daily (was taking 3x per week) -potassium supplemented this morning -consider low dose spironolactone -transition to Eliquis from IV heparin -patient remains on liquid diet. ? Need for any GI work up. if no work up needed - start Eliquis Case discussed with attending physician, further recommendations per Dr. Shelton. I spent a total of 25 minutes on the date of service in preparation, delivery, and documentation of the care provided to this patient excluding any time spent in the performance of separately billed services. This visit was a split-shared visit with the substantial portion of the decision making performed by the supervising accountant tax/billing provider. Admission and Anticipated Discharge Date Admission Date: December 16, 2024 Supervising Physician Co-Signing Physician Notes Patient seen and examined personally. Full assessment and plan as outlined by advanced provider above. Management discussed and personally endorsed. Atrial fibrillation with generally good rate control with planned lower dose metoprolol Succinate, 50 mg/day. Supplement potassium Signs of symptoms of volume overload/congestive heart failure improved. I spent a total of 25 minutes on the date of service in preparation, delivery, and documentation of the care provided to this patient excluding any time spent in the performance of separately billed services. Subjective Patient resting in chair comfortably. Abdominal pain and bloating improved. Denies chest pain. Had mild SOB overnight but now resolved. ? Orthopnea. No cough. Rare palpitations. There was concern for slower HR's overnight in the 40- 50's. No significant pauses. Metoprolol 100 mg held and now HR's trending higher, more tachycardic. Patient questioning why he is still on a liquid diet. Review of Systems Review of Systems: All systems reviewed & are unremarkable except as noted in HPI & below Physical Exam Physical Exam: General: No acute distress. A+Ox3. HEENT: Normocephalic. Atraumatic. PERRL. EOMI. Conjunctiva and sclera clear. NECK: No carotid bruits. + JVD. Carotid upstrokes are brisk. Heart: Irregularly irregular. S1 and S2 noted. No murmur. No rubs or gallops. PMI non displaced. Lungs: Decreased breath sounds. Faint bibasilar rales. Abdomen: Normal bowel sounds. Soft. Nontender. No masses or organomegaly. No abdominal bruits. Extremities: No edema. No clubbing or cyanosis. Pulses: radial=2/4, posterior tibial=2/4, dorsalis pedis = 2/4. NEURO: No focal deficits. PSYCH: Appropriate affect and insight. Results & Data Vital Signs (Past 12 Hours) Vital Signs Temp Pulse Pulse Resp BP BP Pulse Ox 12/18/24 08:00 12/18/24 07:42 36.7 C 111 H 18 131/90 92 12/18/24 07:36 57 L 12/18/24 04:37 36.7 C 89 16 153/70 H 90 12/18/24 00:56 36.7 C 64 17 123/70 93 12/18/24 00:55 67 O2 Del Method O2 Del Method 12/18/24 08:00 Room Air 12/18/24 07:42 Room Air 12/18/24 07:36 12/18/24 04:37 Room Air 12/18/24 00:56 Room Air 12/18/24 00:55 Laboratory Results Comprehensive Metabolic Panel 12/18/24 Range/Units 09:04 Sodium 138 (136-145) mmol/L Potassium 3.2 L (3.5-5.1) mmol/L Chloride 103 (98-107) mmol/L Carbon Dioxide 27 (21-32) mmol/L BUN 14 (6-23) mg/dl Creatinine 0.90 (0.6-1.4) mg/dl Glucose 218 H (70-99(Fasting)) mg/dl Calcium 8.7 (8.6-10.3) mg/dl Intake and Output 12/17/24 12/18/24 12/18/24 22:59 06:59 14:59 Intake Total 293.25 / 748.417 225 / 748.417 100 / 100 Output Total 100 / 501 200 / 501 100 / 100 Balance 193.25 / 247.417 25 / 247.417 0 / 0 Intake: IV 293.25 / 523.417 Heparin 03534 Unit/500 ml D5w 293.25 / 473.417 25,000 units In 500 ml @ 1,150 UNITS/HR 23 mls/hr IV .[id number] [facility] Rx#:[id number] Oral 225 / 225 100 / 100 Output: Urine 100 / 500 200 / 500 100 / 100 Other: Weight 71.5 kg Diagnostic Findings Telemetry reviewed: Afib with controlled rates at rest ranging 70-90's. Mildly tachycardic with HR ranging 120-140's with exertion. HR in the 40-50's transiently overnight during sleep. No prolonged R to R intervals/pauses. Medications Administered Current Inpatient Medications Acetaminophen (Acetaminophen 325 Mg Tab) 650 mg PO Q4H PRN PRN Reason: Pain or Fever Stop: 01/16/25 00:14 Artificial Tears (Artificial Tears) 1 drops OP QID PRN PRN Reason: Dryness Stop: 01/15/25 22:45 Aspirin (Aspirin 81 Mg Ectab) 81 mg PO DAILY [facility] Stop: 01/16/25 08:59 Last Admin: 12/18/24 08:02 Dose: 81 mg Atropine Sulfate (Atropine Sulfate 0.1 Mg/Ml 10ml Syr) 1 mg IV Q3M PRN PRN Reason: symptomatic bradycardia Dextrose (Dextrose 50% 50 Ml Syringe) 25 - 50 ml IV UD PRN; Protocol PRN Reason: Hypoglycemia Protocol Stop: 01/16/25 00:14 Docusate Sodium (Docusate Sodium 100 Mg Cap) 200 mg PO QPM [facility] Stop: 01/16/25 20:59 Last Admin: 12/17/24 20:41 Dose: Not Given Glucagon (Glucagon For Inj 1 Mg Vial) 1 mg SQ UD PRN; Protocol PRN Reason: Hypoglycemia Protocol Stop: 01/16/25 00:14 Glucose (Glucose 40% Gel 15 Gm Tube) 15 - 30 gm PO UD PRN; Protocol PRN Reason: Hypoglycemia Protocol Stop: 01/16/25 00:14 Glucose (Glucose 10 Tab/Tube) 4 - 8 tab PO UD PRN; Protocol PRN Reason: Hypoglycemia Protocol Stop: 01/16/25 00:14 Heparin Sodium/Dextrose (Heparin 59708 Unit/500 Ml D5w) 25,000 units in 500 mls @ 23 mls/hr IV .[id number] [facility]; Protocol Stop: 01/15/25 22:59 Last Admin: 12/17/24 20:43 Dose: 1,150 units/hr, 23 mls/hr Promethazine HCl (Phenergan) 6.25 mg in 50.25 mls @ 201 mls/hr IV Q6H PRN PRN Reason: Nausea And Vomiting Stop: 01/15/25 22:35 Last Infusion: 12/17/24 00:05 Dose: Infused Insulin Aspart (Insulin Aspart Per Unit Charge) 0 units SC ACHS [facility] Stop: 01/16/25 00:14 Last Admin: 12/18/24 08:01 Dose: 1 units Lisinopril (Lisinopril 10 Mg Tab) 10 mg PO QPM [facility] Stop: 01/16/25 20:59 Last Admin: 12/17/24 20:39 Dose: 10 mg Melatonin (Melatonin 3 Mg Tab) 6 mg PO HS PRN PRN Reason: Sleep Stop: 01/16/25 03:22 Metoprolol Succinate (Metoprolol Succ 50mg Ext Rel Tab) 50 mg PO QAM [facility] Stop: 01/17/25 09:59 Miscellaneous (Carbohydrates For Hypoglycemia ) 15 - 30 gm PO UD PRN PRN Reason: Hypoglycemia Protocol Stop: 01/16/25 00:14 Multivitamins (Multivitamin Tab) 1 tab PO QPM [facility] Stop: 01/16/25 20:59 Last Admin: 12/17/24 20:39 Dose: 1 tab Nitroglycerin (Nitroglycerin Sl 0.4 Mg/Tab Tab) 0.4 mg SL Q5M PRN PRN Reason: Chest Pain Stop: 01/16/25 00:14 Rosuvastatin Calcium (Rosuvastatin Calcium 10 Mg Tab) 10 mg PO HS [facility] Stop: 01/16/25 20:59 Last Admin: 12/17/24 20:39 Dose: 10 mg Tramadol HCl (Tramadol Hcl 50 Mg Tablet) 25 - 50 mg PO Q4H PRN PRN Reason: Pain Stop: 01/15/25 22:35 Trazodone HCl (Trazodone Hcl 100 Mg Tab) 100 mg PO HS [facility] Stop: 01/15/25 22:34 Last Admin: 12/17/24 20:39 Dose: 100 mg Vitamin D (Cholecalciferol 25 Mcg (1000 Units) Tab) 25 mcg PO DAILY [facility] Stop: 01/16/25 08:59 Last Admin: 12/18/24 08:02 Dose: 25 mcg (1) Afib Atrial fibrillation type: paroxysmal Qualified Code(s): I48.0 - Paroxysmal atrial fibrillation (3) CAD (coronary artery disease) Associated angina: without angina Coronary Disease-Associated Artery/Lesion type: [place] artery [place] vs. transplanted heart: [place] heart Qualified Code(s): I25.10 - Atherosclerotic heart disease of [place] coronary artery w ithout angina pectoris (4) Hypertension Hypertension type: unspecified Qualified Code(s): I10 - Essential (primary) hypertension
[2024-12-18] MEDS: METOPROLOL SUCC 50MG EXT REL TAB PO SCH (10:55)
[2024-12-18] MEDS: POTASSIUM CHLORIDE CRTAB 20 MEQ TABCR PO ONE (10:55)
[2024-12-18] MEDS: FUROSEMIDE 20 MG TAB PO SCH (10:57)
--- NOTE | 2024-12-18 16:46 | Hospitalist Progress Note ---
Date of Service December 18, 2024 Assessment & Plan (1) CHF (congestive heart failure): Plan: (1) CHF (congestive heart failure): Plan: per admitting service notes with addendum: Acute CHF Diastolic dysfunction, pulmonary hypertension on recent outpatient TTE Possibly from new onset A-fib Arrhythmia detected during outpatient TTE study last week Given 1 dose of Lasix 40 mg IV earlier today Also placed on heparin drip Currently seems to be in sinus rhythm, heart rate 60s Cardiology service consulted, awaiting further recommendations 12/18 Transition to p.o. Lasix Transition from heparin to Eliquis Monitor closely CAD status post CABG valvular heart disease (moderate to severe TR, mild MR) hypertension, elevated hyperlipidemia, on statin Rx GERD, currently not on maintenance medications chronic anemia, hemoglobin at baseline DM2 on oral medications, well-controlled as of recent hemoglobin A1c of 6.5 last month past tobacco abuse DVT prophylaxis. Heparin Full code Lives at home with PT OT Admission and Anticipated Discharge Date Admission Date: December 16, 2024 Subjective follow-up with CHF exacerbation, etc. Seen resting in bedside chair, comfortable, not in distress States he feels improving overall Breathing is improving On room air No chest pain, palpitation, dizziness No other new symptoms Review of Systems Review of Systems: all noted and negative except for above Physical Exam Physical Exam: General- oriented x 3, not in distress, speaks in sentences with no effort or a ccessory muscle use Eyes- anicteric Neck- no JVD Lungs- clear breath sounds bilaterally, no rales/wheezes Heart- normal rate, irregularly irregular rhythm; no murmurs Abdomen- normal bowel sounds, nondistended, soft, nontender Extremities- no pretibial edema, no calf tenderness Neuro- alert, oriented x 3; no gross focal neurologic deficits Skin- warm & dry Results & Data Results & Data Vital Signs (Past 12 Hours) Vital Signs Temp Pulse Pulse Resp BP Pulse Ox O2 Del Method 12/18/24 16:21 36.7 C 78 18 145/75 H 100 Room Air 12/18/24 12:00 36.8 C 93 H 18 159/84 H 97 Room Air 12/18/24 10:18 Room Air 12/18/24 08:00 12/18/24 07:42 36.7 C 111 H 18 131/90 92 Room Air 12/18/24 07:36 57 L O2 Del Method 12/18/24 16:21 12/18/24 12:00 12/18/24 10:18 12/18/24 08:00 Room Air 12/18/24 07:42 12/18/24 07:36 all noted and reviewed including below
[2024-12-18] MEDS: APIXABAN 5 MG TABLET PO SCH (21:02)
[2024-12-19 02:46] VITALS: TEMP 98.1
[2024-12-19 06:55] LABS: BUN Creatinine Ratio 15.8 (10-20); Calcium 8.7 mg/dl (8.6-10.3); Magnesium 1.9 mg/dl (1.7-2.4); Potassium 3.7 mmol/L (3.5-5.1)
[2024-12-19 08:45] VITALS: RESP 18; O2SAT 98
--- NOTE | 2024-12-19 11:06 | Cardiology Progress Note ---
Date of Service December 19, 2024 Assessment & Plan (1) Acute heart failure with preserved ejection fraction (HFpEF): (2) Afib: (3) CAD (coronary artery disease): (4) Hypertension: Plan New onset atrial fibrillation. Prior to arrival dosing of metoprolol succinate was 100 mg/day. Heart rates transiently slow with metoprolol succinate initially held then resumed at 50 mg/day. Heart rates remain acceptably controlled on metoprolol succinate 50 mg daily. Resting echocardiography on December 08, 2024 with severe biatrial enlargement. Recommend rate control strategy. Continue metoprolol succinate 50 mg/day. Recommend Eliquis anticoagulation 5 mg twice per day for stroke prophylaxis. Acute decompensated diastolic congestive heart failure, HFpEF. Resting echocardiography on December 08, 2024 notable for preserved LV systolic function, EF 50 to 54%, mild mitral regurgitation, moderate to severe tricuspid regurgitation, estimated pulmonary artery systolic pressure 61 mmHg. Volume status improved following IV diuresis. Recommend oral furosemide at 20 mg/day along with spironolactone 12.5 mg/day. Discontinue potassium chloride 10 mEq/day. ASCVD. Status post CABG. Patient asymptomatic. Continue appropriate medical management. Hypertension. Mildly elevated. Add spironolactone as above. Dyslipidemia. Continue rosuvastatin. Recommend close outpatient cardiology follow-up at [facility]. Admission and Anticipated Discharge Date Admission Date: December 16, 2024 Supervising Physician Co-Signing Physician Notes Patient seen and personally examined. Full assessment and plan as per advanced provider above. Care and management personally endorsed. Medications adjusted as above clinically improved with heart rate in atrial fibrillation controlled congestive heart failure resolved Subjective Patient seen and examined. Chart, medications, telemetry reviewed. Feeling okay. Notes plans for left lower extremity ultrasound today, as per hospitalist. Breathing and peripheral edema have improved. Ongoing orthopnea. No PND. No chest pain. No overt palpitations. Telemetry: Atrial fibrillation with aberrant conduction and/or occasional premature ventricular complexes, heart rates predominantly in the 60s to 90s. Physical Exam Physical Exam: General: A&Ox3. NAD. Younger than physiologic age HENT: Normocephalic. Atraumatic. Eyes: PER. Conjunctiva pink, sclera clear. Neck: JVD. Heart: Irregularly irregular rate 88 bpm. Systolic murmur. Lungs: Diminished at the bases however clear to auscultation. Abdomen: +BS. Soft. Nontender. No masses or organomegaly. Extremities: Mild distal right lower extremity peripheral edema. 1-2+ chronic indurated edema on the left. Limited neurological examination is without focal deficits. Results & Data Vital Signs (Past 12 Hours) Vital Signs Temp Pulse Pulse Resp BP Pulse Ox O2 Del Method 12/19/24 10:28 Room Air 12/19/24 10:26 54 L 12/19/24 08:00 36.7 C 94 H 18 142/84 H 98 Room Air 12/19/24 02:46 36.7 C 72 20 129/91 92 Room Air Laboratory Results Comprehensive Metabolic Panel 12/19/24 Range/Units 05:48 Sodium 139 (136-145) mmol/L Potassium 3.7 (3.5-5.1) mmol/L Chloride 106 (98-107) mmol/L Carbon Dioxide 25 (21-32) mmol/L BUN 16 (6-23) mg/dl Creatinine 1.01 (0.6-1.4) mg/dl Glucose 106 H (70-99(Fasting)) mg/dl Calcium 8.7 (8.6-10.3) mg/dl Intake and Output 12/18/24 12/19/24 12/19/24 22:59 06:59 14:59 Intake Total 754.633 / 1914.633 200 / 1914.633 Balance 754.633 / 1413.633 200 / 1413.633 Intake: IV 454.633 / 454.633 Heparin 68481 Unit/500 ml D5w 454.633 / 454.633 25,000 units In 500 ml @ 1,150 UNITS/HR 23 mls/hr IV .[id number] EMMA Rx#:[id number] Oral 300 / 1460 200 / 1460 Other: # Unmeasured Voids 1 1 Weight 71.6 kg Weight Measurement Method Built in [facility] (2) Afib Atrial fibrillation type: paroxysmal Qualified Code(s): I48.0 - Paroxysmal atrial fibrillation (3) CAD (coronary artery disease) Associated angina: without angina Coronary Disease-Associated Artery/Lesion type: [place] artery [place] vs. transplanted heart: kake heart Qualified Code(s): I25.10 - Atherosclerotic heart disease of [place] coronary artery without angina pectoris (4) Hypertension Hypertension type: unspecified Qualified Code(s): I10 - Essential (primary) hypertension
[2024-12-19 12:00] VITALS: BP 132/80; PULSE 74
[2024-12-19] MEDS: SPIRONOLACTONE 12.5 MG TAB PO SCH (12:06)
--- NOTE | 2024-12-19 14:16 | Discharge Summary ---
Discharge Summary Date of Service December 19, 2024 Principal Dx & Hospital Course #1 = Principal Diagnosis (1) CHF (congestive heart failure): (1) CHF (congestive heart failure): Plan: per admitting service notes with addendum: Acute CHF Diastolic dysfunction, pulmonary hypertension on recent outpatient TTE Possibly from new onset A-fib Arrhythmia detected during outpatient TTE study last week Given 1 dose of Lasix 40 mg IV earlier today Also placed on heparin drip Currently seems to be in sinus rhythm, heart rate 60s Cardiology service consulted, awaiting further recommendations 12/18 Transition to p.o. Lasix Transition from heparin to Eliquis Monitor closely CAD status post CABG valvular heart disease (moderate to severe TR, mild MR) hypertension, elevated hyperlipidemia, on statin Rx GERD, currently not on maintenance medications chronic anemia, hemoglobin at baseline DM2 on oral medications, well-controlled as of recent hemoglobin A1c of 6.5 last month past tobacco abuse DVT prophylaxis. Heparin Full code Lives at home with PT OT Admission HPI Per Admitting Provider History obtained from patient, family, and records. Medical history significant for CAD status post CABG, valvular heart disease (moderate to severe TR, mild MR), hypertension, hyperlipidemia, pulmonary hypertension, GERD, chronic anemia (baseline hemoglobin of 12), PMR, DM2 on oral medications, past tobacco abuse. Last confinement October 2023 under Orthopedics service for elective total right knee arthroplasty. Unremarkable postop course. Recent ER visit last month for traumatic left knee hematoma/contusion secondary to fall. PT recommended by local orthopedics group. Outpatient TTE done last week following PCP request. EF 50 to 54%. Severe biatrial enlargement. Mild MR, moderate to severe TR, estimated PASP of 61 mmHg. Patient requested to proceed to PCP's office 3 days ago to have an EKG done due to abnormal rhythm detected during recent outpatient TTE. EKG showed A-fib. 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 Patient not feeling well the last 2 days. SOB, sick and gassy stomach. No diarrhea symptoms. No cough, no chest pain, No fluid retention. Not sure about sick contacts. IV Lasix administered at the ER. 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 Updated Medication List Medication Instructions Recorded Confirmed Type lisinopril 10 mg tablet 10 mg PO QPM 10/24/19 12/16/24 History metformin 500 mg tablet,extended 500 mg PO BIDM 10/24/19 12/16/24 History release 24 hr metoprolol succinate 100 mg 100 mg PO QAM 10/24/19 12/16/24 History tablet,extended release 24 hr multivitamin (Multiple Vitamins 1 tab PO QPM 10/24/19 12/16/24 History tablet) rosuvastatin 10 mg tablet 10 mg PO HS 10/24/19 12/16/24 History cyclosporine 0.05 % eye drops in a 1 drp ophthalmic (eye) BID 09/30/23 12/16/24 History dropperette (Restasis) docusate sodium 100 mg capsule 200 mg PO QPM 09/30/23 12/16/24 History (Stool Softener) aspirin 81 mg chewable tablet 81 mg PO DAILY 12/16/24 12/16/24 History (Aspirin Childrens) cholecalciferol (vitamin D3) 25 25 mcg PO DAILY 12/16/24 12/16/24 History mcg (1,000 unit) tablet (Vitamin D3) potassium chloride 10 mEq 10 meq PO 3XWK 12/16/24 12/16/24 History tablet,extended release(part/cryst) trazodone 100 mg tablet 100 mg PO HS 12/16/24 12/16/24 History trazodone 50 mg tablet 50 mg PO Q6 PRN pain,moderate 12/16/24 12/16/24 History apixaban 5 mg tablet (Eliquis) 5 mg PO BID 30 days #60 tabs 12/19/24 Rx furosemide 20 mg tablet 20 mg PO DAILY 30 days #30 tabs 12/19/24 Rx metoprolol succinate 50 mg 50 mg PO QAM 30 days #30 tabs 12/19/24 Rx tablet,extended release 24 hr spironolactone 25 mg tablet 12.5 mg (1/2 x 25 mg) PO DAILY 30 12/19/24 Rx days #15 tabs Hospital Stay Data Consultations 12/16/24 21:15 ED Decision to Admit Stat 12/17/24 00:15 Consult Cardiology Routine Diagnostic Imagining Performed 12/16/24 20:10 CT abd pelvis IV con only Stat 12/16/24 20:11 CT angio chest PE protocol Stat 12/19/24 11:49 US venous doppler LE LT Urgent Pending Results Patient Have Any Pending Studies at Discharge: No Discharge Instructions Given to Patient (Per Discharging Provider) PLEASE REFER TO YOUR NEW MEDICATION LIST AND FOLLOW INSTRUCTIONS CAREFULLY. YOUR NEW MEDICATIONS INCLUDE: Eliquis-blood thinner to prevent stroke from atrial fibrillation - call your primary care physician if you notice blood in your urine or stool, black stools - if you sustain any head trauma, proceed to the ER immediately for evaluation including a CAT scan of the head Medication changes: increase Lasix 20 mg to Once daily. reduce spironolactone to 12.5 mg p.o. daily reduce metoprolol succinate from 100 to 50 mg daily stop taking potassium chloride PLEASE CALL YOUR PRIMARY CARE PHYSICIAN OR RETURN TO THE ER IF WITH WORSENING OF SYMPTOMS, INCLUDING chest pain, shortness of breath, leg swelling, bleeding, etc. FOLLOW UP WITH PRIMARY CARE PHYSICIAN OUTLINED ABOVE. follow-up with [facility] cardiology clinic in 2 weeks.
--- NOTE | 2024-12-19 14:17 | Ultrasound Report ---
LEFT LOWER EXTREMITY VENOUS DOPPLER CLINICAL HISTORY: Left lower extremity edema. Evaluate for deep venous thrombus. COMPARISON STUDY: No previous studies for comparison. TECHNIQUE: Sonography of the deep venous system of the left lower extremity was performed. Compressi on and augmentation were evaluated. FINDINGS: The left common femoral, superficial femoral and popliteal veins were compressible. Augmen tation was normal. Flow was shown within the deep calf vessels. Subcutaneous edema within the left lo wer extremity is incidentally noted. IMPRESSION: No evidence of deep venous thrombus within the left lower extremity. ACT 112: Negative or not required by law. Electronically signed by: Klaus Weathers M.D. 12/19/2024 2:15 PM
== END 2024-12-19 15:50 | disposition home or self-care (01) | DRG 291 ==
LOC: ED 19:27 → EDINP 21:51 → 2E 12-17 00:15